=== PATIENT | female | born 1940 | race Caucasian/White ===

== ENCOUNTER 2018-01-11 07:25 | Observation (INO) | payer MEDICARE, BC ==
[2018-01-11] MEDS ORDERED: Aspirin 81 MG Tab.Chew CHEW ONE (07:29)
[2018-01-11] MEDS ORDERED: Ticagrelor 90 MG Tab PO ONE (07:29)
[2018-01-11] MEDS ORDERED: Sodium Chloride 0.9% 10 ML Syringe FLUSH PRN ×2 (07:29→09:10)
[2018-01-11] MEDS ORDERED: Famotidine 20 MG/2 ML SDV IVPUSH ONE (07:29)
--- NOTE | 2018-01-11 07:29 | EDM.PDOC ---
ED HPI GENERAL MEDICAL PROBLEM - General Chief Complaint: Chest Pain Stated Complaint: Chest Pain Time Seen by Provider: 01/11/18 07:25 Source of Information: Reports: Patient, Old Records ([facility] chart/EMR) History Limitations: Reports: No Limitations - History of Present Illness INITIAL COMMENTS - FREE TEXT/NARRATIVE: The patient was brought to the emergency room via private automobile by her daughter for evaluation of sudden onset of 7/10 sharp left upper chest pain associated with some nausea and dizziness. She has been having some problems with her vertigo recently and did take her medications this morning including a baby aspirin and her meclizine. The patient denies any other chest pain/pressure , heart flutter,orthostasis, orthopnea, diaphoresis, paresthesias, recent decreased exercise tolerance, or any other anginal-type symptoms. She did have a minor fall at home after she tripped about one week ago but did not injure her chest region or experience any other significant injuries at that time. No recent history of abdominal pain, heartburn, emesis, diarrhea, melena, gross hematochezia, or any food intolerance, including fatty foods, etc. with normal bowel movement earlier this morning. No recent history of colic, gross hematuria , or other UTI symptoms. The patient also denies any recent fever, cough, wheezing, dyspnea, etc.. No history of recent headaches, visual changes, diplopia, change in mental status, or other change in neurological status. Onset: Today, Sudden Onset Date: 01/11/18 Onset Time: 05:30 Duration: Constant Location: Reports: Chest. Denies: Head, Face, Neck, Abdomen, Back, Pelvis, Upper Extremity, Left, Upper Extremity, Right, Radiates to Quality: Reports: Same as Previous Episode, Sharp Improves with: Reports: Rest Worsens with: Reports: Movement (Palpation) Context: Reports: Other (As above) Associated Symptoms: Reports: Chest Pain, Nausea/Vomiting (No emesis). Denies: Confusion, Cough, Diaphoresis, Fever/Chills, Headaches, Loss of Appetite, Malaise, Seizure, Shortness of Breath, Syncope, Weakness Treatments LENS POLISHER: Reports: Other Medication(s) (Morning medications) Left Chest Pain Score (Numeric/FACES): 7 - Related Data Allergies Allergy/AdvReac Type Severity Reaction Status Date / Time No Known Allergies Allergy Verified 05/14/16 05:37 Home Meds: Home Meds Lisinopril [Prinivil] 30 mg PO DAILY 10/17/15 [History] Metoprolol Succinate [Toprol XL 50mg] 50 mg PO BID 10/17/15 [History] atorvaSTATin [Lipitor] 40 mg PO BEDTIME 10/17/15 [History] Aspirin [Ecotrin] 81 mg PO DAILY 05/14/16 [History] Ferrous Sulfate 325 mg PO DAILY #30 tablet 05/14/16 [Rx] Meclizine [Antivert] 25 mg PO Q6H PRN #30 tablet 05/14/16 [Rx] Past Medical History HEENT History: Reports: Impaired Vision, Other (See Below). Denies: Allergic Rhinitis, Cataract, Glaucoma, Hard of Hearing, Macular Degeneration, Retinal Detachment Other HEENT History: Glasses Cardiovascular History: Reports: Arrhythmia, High Cholesterol, Hypertension, Other (See Below). Denies: Afib, Aneurysm, Blood Clots/VTE/DVT, CAD, Heart Failure, Heart Murmur, CA, PVD, Syncope Other Cardiovascular History: Complete right bundle branch block, dyslipidemia Respiratory History: Reports: COPD, Other (See Below). Denies: Asthma, Bronchitis, Recurrent, Intubation, Previous, PE, Pneumothorax, Sleep Apnea, TB Other Respiratory History: COPD by chest x-ray Gastrointestinal History: Reports: None. Denies: Celiac Disease, Cholelithiasis , Chronic Constipation, Chronic Diarrhea, Gastritis, GERD, GI Bleed, Hepatitis, Inflammatory Bowel Disease, Irritable Bowel Syndrome, Jaundice, Pancreatitis, PUD Genitourinary History: Reports: None. 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 Denies: Back Pain, Chronic, Gout, Neck Pain, Chronic, RA, SLE Other Musculoskeletal History: Right ankle bimalleolar fracture on 07/02/10, Anne's cyst of the right knee, right wrist fracture in about 2005 Neurological History: Reports: Vertigo, Other (See Below). Denies: Cerebral Aneurysms, Concussion, CVA, Headaches, Chronic, Head Trauma, Migraines, Neuropathy, Peripheral, Parkinson's, Seizure, TIA Other Neuro History: Chronic vertigo Psychiatric History: Reports: Anxiety, Depression. Denies: Abuse, Victim of, ADD, ADHD, Addiction, Psych Hospitalization(s), PTSD, Suicide Attempt, Suicidal Ideation Endocrine/Metabolic History: Reports: Osteopenia, Osteoporosis, Other (See Below ). Denies: Diabetes, Type I, Diabetes, Type II, Hypothyroidism, IDDM Other Endocrine/Metabolic History: Hyperglycemia Hematologic History: Reports: Anemia, Iron Deficiency. Denies: Blood Transfusion(s) Immunologic History: Reports: None. Denies: AIDS, HIV, SLE Oncologic (Cancer) History: Reports: None. Denies: Basal Cell Carcinoma, Cervix , Hodgkin's Lymphoma, Leukemia, Lymphoma, Malignant Melanoma, Non-Hodgkin's Lymphoma, Squamous Cell Carcinoma, Uterine Dermatologic History: Reports: None. Denies: Eczema, Psoriasis - Infectious Disease History Infectious Disease History: Reports: Chicken Pox, Measles, Mumps. Denies: C- Difficile, Meningitis, Mononucleosis, MRSA, Pertussis (Whooping Cough), Rheumatic Fever, Rubella, Scarlet Fever, TB, VRE - Past Surgical History Head Surgeries/Procedures: Reports: None HEENT Surgical History: Reports: Adenoidectomy, Oral Surgery, Tonsillectomy, Other (See Below). Denies: Cataract Surgery, Eye Surgery, Laser Surgery, LASIK , Myringotomy w Tube(s), Naso-Sinus Surgery Other HEENT Surgeries/Procedures: Tonsillectomy and adenoidectomy at age 18. Multiple teeth extractions. Orange teeth extraction 4 in her late 30s Cardiovascular Surgical History: Reports: None. Denies: Varicose Respiratory Surgical History: Reports: None. Denies: Thoracentesis GI Surgical History: Reports: None. Denies: Appendectomy, Cholecystectomy, Colonoscopy, EGD, Hernia, Abdominal, Hernia, Inguinal, Hernia Repair/Other Female Surgical History: Reports: D&C, Other (See Below). Denies: Breast Biopsy, Hysterectomy, Oophorectomy, Salpingo-Oophorectomy, Tubal Ligation Other Female Surgeries/Procedures: D&C secondary to SAB Endocrine Surgical History: Reports: None. Denies: Thyroid Biopsy Neurological Surgical History: Reports: None. Denies: C-Spine, Discectomy, Laminectomy, Lumbar Spine, Sacral Spine, Spinal Fusion, Thoracic Spine, Vertebroplasty Musculoskeletal Surgical History: Reports: Joint Replacement, Knee Replacement, Other (See Below). Denies: Carpal Tunnel, Ganglion Cyst, ORIF, Shoulder Surgery Other Musculoskeletal Surgeries/Procedures:: Right TKA on 10/09/15 Oncologic Surgical History: Reports: None Dermatological Surgical History: Reports: None - Past Imaging History Past Imaging History: Reports: CAT Scan (CT of the brain on 05/14/16 with previous evaluation on 01/14/03), DEXA Scan (04/23/13), Mammogram (Last mammogram on 12/20/16), Stress Testing (Cardiolite stress test on 10/21/05 with ejection fraction of 72%), Venous Doppler (Right leg on 10/18/15 and 08/31/07) Social & Family History - Family History HEENT: Reports: None. Denies: Allergic Rhinitis, Cataract, Glaucoma, Macular Degeneration Cardiac: Reports: CAD, Cardiomyopathy, Heart Failure, Hypertension, CA, Other ( See Below). Denies: Afib, AICD, Aneurysm, Arrhythmia, Blood Clots/VTE/DVT, Bypass, Heart Murmur, High Cholesterol, Pacemaker, PVD/COD, Syncope Other Cardiac Family History: Father with CA in his 60s with fatal CHF in his 80s, mother with hypertension Respiratory: Reports: None. Denies: Asthma, COPD, PE, Pneumothorax, Sleep Apnea GI: Reports: Cholelithiasis, Colon Polyps, Other (See Below). Denies: Celiac Disease, GERD, GI bleed, Inflammatory Bowel Disease, Irritable Bowel Syndrome, PUD Other GI Family History: Mother with cholelithiasis. Sister with colon cancer as below. : Reports: None. Denies: Dialysis, Renal Calculus, Renal Disease/ Insufficiency OBGYN: Reports: None. Denies: Endometriosis, Fibroids, Recurrent Spontaneous Musculoskeletal: Reports: None. Denies: Arthritis, Gout, RA, SLE Neurological: Reports: CVA, Other (See Below). Denies: Cerebral Aneurysms, Dementia, Migraines, MS, Neuropathy, Peripheral, Parkinson's, Seizure, TIA Other Neurological Family History: Mother with CVA in her 60s Psychiatric: Reports: None. Denies: Abuse, Victim of, ADD, ADHD, Anxiety, Depression, Psych Hospitalization(s), PTSD, Suicide Attempt Endocrine/Metabolic: Reports: None. Denies: Diabetes, Type I, Diabetes, type II , Diabetes Mellitus, Type 3c, Hypothyroidism, IDDM Hematologic: Reports: None. Denies: Anemia, Transfusion Reaction Immunologic: Reports: None. Denies: AIDS, HIV, SLE Dermatologic: Reports: None. Denies: Eczema, Psoriasis Oncologic: Reports: Colon, Other (See Below). Denies: Breast, Cervix, Hodgkin' s Lymphoma, Leukemia, Lymphoma, Metastatic, Non-Hodgkin's Lymphoma, Ovarian, Skin, Uterine Other Oncologic Family History: Sister with colon cancer in her 70s - Tobacco Use Smoking Status *Q: Never Smoker Tobacco Use Within Last Twelve Months: No Used Tobacco, but Quit: No Smoking Cessation Information Provided To Patient: No Second Hand Smoke Exposure: No Second Hand Smoke Education Provided: No - Caffeine Use Caffeine Use: Reports: Coffee, Soda, Tea. Denies: Energy Drinks Caffeine Use Comment: 3 cups of coffee per day, one glass of tea per month, and 1 soda per day - Alcohol Use Alcohol Use History: No Days Per Week of Alcohol Use: 0 Number of Drinks Per Day: 0 Number of Drinks Per Day Comment: No previous DWIs, problems with alcohol abuse , etc. 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 ED EXAM, GENERAL - Physical Exam Exam: See Below Exam Limited By: No Limitations General Appearance: Alert, WD/WN, No Apparent Distress Eye Exam: Bilateral Eye: EOMI, Normal Fundi, Normal Inspection (No nystagmus. Patient wearing glasses), PERRL Ears: Normal External Exam, Normal Canal, Hearing Grossly Normal, Normal TMs Nose: Normal Inspection, Normal Mucosa, No Blood Throat/Mouth: Normal Inspection, Normal Lips, Normal Teeth (Multiple missing teeth), Normal Gums, Normal Oropharynx, Normal Voice, No Airway Compromise. No : Dysphagia, Perioral Cyanosis Head: Atraumatic, Normocephalic. No: Facial Swelling, Facial Tenderness, Sinus Tenderness Neck: Non-Tender, Full Range of Motion, Carotid Bruit (Mild bilateral carotid bruits). No: Lymphadenopathy (L), Lymphadenopathy (R), Thyromegaly Respiratory/Chest: No Respiratory Distress, Lungs Clear, Normal Breath Sounds, No Accessory Muscle Use. No: Chest Non-Tender (Moderate localized palpation pain over her left anterior superior chest wall region with no crepitation, ecchymosis, deformity, swelling, etc.), Stridor, Retractions Cardiovascular: Normal Peripheral Pulses, Regular Rate, Rhythm, No Edema, No Gallop, No JVD, No Murmur, No Rub. No: Gallop/S3, Gallop/S4, Friction Rub Peripheral Pulses: 2+: Radial (L), Radial (R), Dorsalis Pedis (L), Dorsalis Pedis (R) GI/Abdominal: Normal Bowel Sounds, Soft, Non-Tender, No Organomegaly, No Distention, No Abnormal Bruit, No Mass, Pelvis Stable, Other (Obese). No: Guarding (Female) Exam: Deferred Rectal (Female) Exam: Deferred Back Exam: Normal Inspection, Full Range of Motion. No: CVA Tenderness (L), CVA Tenderness (R), Muscle Spasm Extremities: Normal Inspection, Normal Range of Motion, Non-Tender, No Pedal Edema, Normal Capillary Refill. No: Cyndee's Sign Neurological: Alert, Oriented, CN II-XII Intact, Normal Cognition, Normal Gait, No Motor/Sensory Deficits Psychiatric: Normal Affect, Normal Mood Skin Exam: Warm, Dry, Intact, Normal Color, No Rash. No: Diaphoretic, Ecchymosis, Petechiae, Wound/Incision Lymphatic: No Adenopathy EKG INTERPRETATION EKG Date: 01/11/18 Time: 07:33 Rhythm: NSR Rate (Beats/Min): 66 Caruthers: Normal (Left cardiac axis) P-Wave: Enlarged (Mild diffuse biphasic P waves with resolution of previous pulmonary hypertension by EKG) QRS: Normal (QRS interval of 0.09 seconds representing repolarization changes) ST-T: Normal (T-wave inversion in lead V1 with new T-wave inversion in lead 3) QT: Normal IL/PQ Interval: 0.13 seconds with no delta waves present Comparison: Change From Previous EKG (As above since 05/14/16) EKG Interpretation Comments: 1. No acute ischemic changes 2. Left atrial enlargement 3. Repolarization changes 4. Short IL interval Course - Vital Signs Last Recorded V/S: Last Vital Signs Temp 36.9 C 01/11/18 07:25 Pulse 70 01/11/18 08:45 Resp 18 01/11/18 08:45 BP 162/71 H 01/11/18 08:45 Pulse Ox 97 01/11/18 08:45 Vital Signs - 24 hr 01/11/18 01/11/18 01/11/18 07:25 07:40 07:41 Temperature [ 36.9 C Temporal] Pulse, Peripheral Pulse, 69 77 Peripheral [ Pulse Oximetry] Respiratory 19 20 Rate Blood Pressure 172/87 H Blood Pressure 172/87 H 136/68 [Left Upper Arm ] O2 Sat by Pulse 96 96 Oximetry 01/11/18 01/11/18 01/11/18 07:44 07:55 08:10 Temperature [ Temporal] Pulse, 71 Peripheral Pulse, 66 68 Peripheral [ Pulse Oximetry] Respiratory 20 16 Rate Blood Pressure 172/87 H Blood Pressure 144/68 H 149/67 H [Left Upper Arm ] O2 Sat by Pulse 95 97 Oximetry 01/11/18 01/11/18 08:25 08:45 Temperature [ Temporal] Pulse, Peripheral Pulse, 66 70 Peripheral [ Pulse Oximetry] Respiratory 15 18 Rate Blood Pressure Blood Pressure 165/75 H 162/71 H [Left Upper Arm ] O2 Sat by Pulse 98 97 Oximetry - Orders/Labs/Meds Orders: Active Orders 24 hr Category Date Time Status Cardiac Monitoring [RC] . DIRECTED Care 01/11/18 07:29 Active EKG Documentation Completion [RC] ASDIRECTED Care 01/11/18 07:29 Active Oxygen Therapy, ED [RC] CONTINUOUS Care 01/11/18 07:29 Active Peripheral IV Care [RC] . DIRECTED Care 01/11/18 07:29 Active Pulse Oximetry [RC] CONTINUOUS Care 01/11/18 07:29 Active Up With Assistance [RC] PFP Care 01/11/18 07:29 Active Vital Signs [RC] PFP Care 01/11/18 07:29 Active Nothing per Oral Now Diet [DIET] Diet 01/11/18 Breakfast Active Chest 1V Frontal [CR] Stat Exams 01/11/18 07:29 Taken Nitroglycerin [Nitrostat] Med 01/11/18 07:31 Stat 0.4 mg SL ONETIME STA Sodium Chloride 0.9% [Saline Flush] Med 01/11/18 07:29 Active 10 ml FLUSH ASDIRECTED PRN Obtain Past Medical Record [OM.PC] Urgent Oth 01/11/18 07:29 Active Peripheral IV Insertion Adult [OM.PC] Stat Oth 01/11/18 07:29 Ordered Resuscitation Status Stat Resus Stat 01/11/18 07:29 Ordered Medication Orders Nitroglycerin (Nitrostat) 0.4 mg SL ONETIME STA Stop: 01/12/18 07:32 Last Admin: 01/11/18 07:41 Dose: 0.4 mg Sodium Chloride (Saline Flush) 10 ml FLUSH ASDIRECTED PRN PRN Reason: Keep Vein Open Labs: Laboratory Tests 01/11/18 01/11/18 01/11/18 Range/Units 07:35 07:35 07:35 WBC 6.3 (4.0-10.2) K/uL RBC 4.99 (3.77-5.09) M/uL Hgb 14.7 (11.7-15.5) g/dL Hct 44.5 (34.0-46.0) % MCV 89.2 (84.0-98.0) fL MCH 29.5 (28.2-33.3) pg MCHC 33.0 (31.7-36.0) g/dL RDW 13.2 (11.2-14.1) % Plt Count 177 (150-350) K/uL Neut % (Auto) 65.6 (45.0-80.0) % Lymph % (Auto) 21.3 (10.0-50.0) % Grady % (Auto) 9.1 (2.0-14.0) % Eos % (Auto) 3.0 (0.0-5.0) % Baso % (Auto) 1.0 (0.0-2.0) % Neut # (Auto) 4.10 (1.40-7.00) K/uL Lymph # (Auto) 1.33 (0.50-3.50) K/uL Grady # (Auto) 0.57 (0.00-1.00) K/uL Eos # (Auto) 0.19 (0.00-0.50) K/uL Baso # (Auto) 0.06 (0.00-0.20) K/uL PT 10.7 (9.8-11.7) SEC INR 1.0 APTT 25.9 (22.1-29.8) SEC D-Dimer, Quantitative 242 (0-400) ng/mL Sodium (136-145) mmol/L Potassium (3.5-5.1) mmol/L Chloride (98-107) mmol/L Carbon Dioxide (21.0-32.0) mmol/L BUN (7-18) mg/dL Creatinine (0.51-1.17) mg/dL Est Cr Clr Drug Dosing mL/min Estimated GFR (MDRD) mL/min Glucose (74-106) mg/dL Lactic Acid (0.4-2.0) mmol/L Uric Acid (2.6-7.2) mg/dL Calcium (8.5-10.1) mg/dL Magnesium (1.8-2.4) mg/dL Total Bilirubin (0.2-1.0) mg/dL AST (15-37) U/L ALT (12-78) U/L Alkaline Phosphatase (46-116) IU/L Creatine Kinase (26-308) U/L Creatine Kinase Index (0.0-2.5) % CK-MB (CK-2) (0.00-3.60) ng/mL Troponin I (0.000-0.056) ng/mL NT-Pro-B Natriuret Pep (0-125) pg/mL Total Protein (6.4-8.2) g/dL Albumin (3.4-5.0) g/dL TSH, Ultra Sensitive (0.358-3.740) mIU/mL 01/11/18 01/11/18 Range/Units 07:35 07:35 WBC (4.0-10.2) K/uL RBC (3.77-5.09) M/uL Hgb (11.7-15.5) g/dL Hct (34.0-46.0) % MCV (84.0-98.0) fL MCH (28.2-33.3) pg MCHC (31.7-36.0) g/dL RDW (11.2-14.1) % Plt Count (150-350) K/uL Neut % (Auto) (45.0-80.0) % Lymph % (Auto) (10.0-50.0) % Grady % (Auto) (2.0-14.0) % Eos % (Auto) (0.0-5.0) % Baso % (Auto) (0.0-2.0) % Neut # (Auto) (1.40-7.00) K/uL Lymph # (Auto) (0.50-3.50) K/uL Grady # (Auto) (0.00-1.00) K/uL Eos # (Auto) (0.00-0.50) K/uL Baso # (Auto) (0.00-0.20) K/uL PT (9.8-11.7) SEC INR APTT (22.1-29.8) SEC D-Dimer, Quantitative (0-400) ng/mL Sodium 142 (136-145) mmol/L Potassium 4.0 (3.5-5.1) mmol/L Chloride 107 (98-107) mmol/L Carbon Dioxide 27.3 (21.0-32.0) mmol/L BUN 15 (7-18) mg/dL Creatinine 0.76 (0.51-1.17) mg/dL Est Cr Clr Drug Dosing 52.91 mL/min Estimated GFR (MDRD) > 60 mL/min Glucose 95 (74-106) mg/dL Lactic Acid 1.4 (0.4-2.0) mmol/L Uric Acid 5.3 (2.6-7.2) mg/dL Calcium 9.5 (8.5-10.1) mg/dL Magnesium 2.0 (1.8-2.4) mg/dL Total Bilirubin 0.5 (0.2-1.0) mg/dL AST 20 (15-37) U/L ALT 30 (12-78) U/L Alkaline Phosphatase 81 (46-116) IU/L Creatine Kinase 38 (26-308) U/L Creatine Kinase Index 2.1 (0.0-2.5) % CK-MB (CK-2) 0.80 (0.00-3.60) ng/mL Troponin I 0.000 (0.000-0.056) ng/mL NT-Pro-B Natriuret Pep 233 H (0-125) pg/mL Total Protein 7.5 (6.4-8.2) g/dL Albumin 3.7 (3.4-5.0) g/dL TSH, Ultra Sensitive 2.989 (0.358-3.740) mIU/mL Meds: Medications Generic Name Dose Route Start Last Admin Trade Name Freq PRN Reason Stop Dose Admin Nitroglycerin 0.4 mg 01/11/18 07:31 01/11/18 07:41 Nitrostat SL 01/12/18 07:32 0.4 mg ONETIME STA Administration Sodium Chloride 10 ml 01/11/18 07:29 Saline Flush FLUSH ASDIRECTED PRN Keep Vein Open Discontinued Medications Generic Name Dose Route Start Last Admin Trade Name Freq PRN Reason Stop Dose Admin Aspirin 324 mg 01/11/18 07:29 01/11/18 07:40 Aspirin CHEW 01/11/18 07:30 324 mg ONETIME ONE Administration Famotidine 40 mg 01/11/18 07:29 01/11/18 07:42 Pepcid IVPUSH 01/11/18 07:30 40 mg ONETIME ONE Administration Metoprolol Tartrate 2.5 mg 01/11/18 07:31 01/11/18 07:44 Lopressor IVPUSH 01/11/18 07:32 2.5 mg ONETIME ONE Administration Ticagrelor 180 mg 01/11/18 07:29 01/11/18 07:41 Brilinta PO 01/11/18 07:30 180 mg ONETIME ONE Administration - Radiology Interpretation Free Text/Narrative:: ekg monitor tech showed normal sinus rhythm with heart rate in the 60s to 70s with no ectopy or arrhythmia Chest x-ray, portable, shows mild cardiomegaly with moderate COPD changes and probable pulmonary hypertension and/or mild centralized CHF. Mild aortic valve calcification. No pneumothorax, pulmonary infiltrates, rib fractures, etc. Departure - Departure Time of Disposition: 09:00 Disposition: Refer to Observation Condition: Good Clinical Impression: COPD (chronic obstructive pulmonary disease), Hypertension, Osteoarthritis, Dyslipidemia, Hyperglycemia, Iron deficiency, Vertigo, CHF (congestive heart failure), Chest pain Referrals: Jose Wan MD [Primary Care Provider] - Forms: ED Department Discharge Care Plan Goals: See plan - Problem List & Annotations (1) Chest pain SNOMED Code(s): 45409450 Code(s): R07.9 - CHEST PAIN, UNSPECIFIED Status: Acute Priority: High Current Visit: Yes Onset Date: 01/11/18 Annotation/Comment:: Atypical presentation of chest pain with appearance of chest wall pain by palpation and physical exam. Secondary to atypical symptoms chest pain protocol was initiated. Various therapeutic options were given to the patient and her daughter, who are requesting admission for rule out of CA. Consider repeat Cardiolite stress test on an outpatient basis. Cardiology consultation depending on her clinical course. Note the patient has not had a colonoscopy to this point despite family history of colon cancer in her sister as above. Colonoscopy LIZETH after her cardiac status has been determined. Qualifiers: Chest pain type: other chest pain Qualified Code(s): R07.89 - Other chest pain; R07.8 - Other chest pain (2) CHF (congestive heart failure) SNOMED Code(s): 19265105 Code(s): I50.9 - HEART FAILURE, UNSPECIFIED Status: Acute Priority: High Current Visit: Yes Onset Date: 01/11/18 Annotation/Comment:: Borderline CHF by chest x-ray with mildly elevated BNP possibly secondary to her age and renal function. No need for Lasix therapy at this time. Echocardiogram should be conducted on an outpatient basis. Qualifiers: Heart failure type: unspecified Heart failure chronicity: acute Qualified Code(s): I50.9 - Heart failure, unspecified (3) Hyperglycemia SNOMED Code(s): 21684318 Code(s): R73.9 - HYPERGLYCEMIA, UNSPECIFIED Status: Chronic Priority: Medium Current Visit: Yes Onset Date: 05/14/16 Annotation/Comment:: Milldy elevated fasting glucose in the past. Gycosylated hemoglobin in the a.m. (4) Iron deficiency SNOMED Code(s): 43220916 Code(s): E61.1 - IRON DEFICIENCY Status: Chronic Priority: Medium Current Visit: Yes Onset Date: 05/14/16 Annotation/Comment:: As above. Currently under therapy. No current anemia. (5) Vertigo SNOMED Code(s): 017513199 Code(s): R42 - DIZZINESS AND GIDDINESS Status: Chronic Priority: Medium Current Visit: Yes Annotation/Comment:: Note chronic vertigo with recent mild exacerbation (6) COPD (chronic obstructive pulmonary disease) SNOMED Code(s): 43998617 Code(s): J44.9 - CHRONIC OBSTRUCTIVE PULMONARY DISEASE, UNSPECIFIED Status : Chronic Priority: Medium Current Visit: Yes Onset Date: 05/14/16 Annotation/Comment:: COPD by chest x-ray. Consider PFTs by regular provider after her cardiac status has been determined.. No recent fever or bronchitic- type symptoms. Qualifiers: COPD type: emphysema Emphysema type: panlobular Qualified Code(s): J43.1 - Panlobular emphysema (7) Dyslipidemia SNOMED Code(s): 794126669 Code(s): E78.5 - HYPERLIPIDEMIA, UNSPECIFIED Status: Chronic Priority: Medium Current Visit: Yes Annotation/Comment:: Currently under therapy. Lipid panel in the a.m. (8) Hypertension SNOMED Code(s): 22710021 Code(s): I10 - ESSENTIAL (PRIMARY) HYPERTENSION Status: Chronic Priority : Medium Current Visit: Yes Annotation/Comment:: Blood pressure somewhat elevated initially in the emergency room, however improved with treatment. Continue to observe closely during this hospitalization and by regular provider Qualifiers: Hypertension type: essential hypertension Qualified Code(s): I10 - Essential (primary) hypertension (9) Osteoarthritis SNOMED Code(s): 898726944 Code(s): M19.90 - UNSPECIFIED OSTEOARTHRITIS, UNSPECIFIED SITE Status: Chronic Priority: Medium Current Visit: Yes Annotation/Comment:: Stable by history Qualifiers: Osteoarthritis location: multiple joints Osteoarthritis type: primary Qualified Code(s): M15.0 - Primary generalized (osteo)arthritis - Problem List Review Problem List Initiated/Reviewed/Updated: Yes - My Orders Last 24 Hours: My Active Orders 01/11/18 07:29 Cardiac Monitoring [RC] . DIRECTED EKG Documentation Completion [RC] ASDIRECTED Oxygen Therapy, ED [RC] CONTINUOUS Peripheral IV Care [RC] . DIRECTED Pulse Oximetry [RC] CONTINUOUS Up With Assistance [RC] PFP Vital Signs [RC] PFP Chest 1V Frontal [CR] Stat Sodium Chloride 0.9% [Saline Flush] 10 ml FLUSH ASDIRECTED PRN Obtain Past Medical Record [OM.PC] Urgent Peripheral IV Insertion Adult [OM.PC] Stat Resuscitation Status Stat 01/11/18 07:31 Nitroglycerin [Nitrostat] 0.4 mg SL ONETIME STA 01/11/18 Breakfast Nothing per Oral Now Diet [DIET] - Assessment/Plan Admission H&P: Please use this note as an admission H&P Last 24 Hours: My Active Orders 01/11/18 07:29 Cardiac Monitoring [RC] . DIRECTED EKG Documentation Completion [RC] ASDIRECTED Oxygen Therapy, ED [RC] CONTINUOUS Peripheral IV Care [RC] . DIRECTED Pulse Oximetry [RC] CONTINUOUS Up With Assistance [RC] PFP Vital Signs [RC] PFP Chest 1V Frontal [CR] Stat Sodium Chloride 0.9% [Saline Flush] 10 ml FLUSH ASDIRECTED PRN Obtain Past Medical Record [OM.PC] Urgent Peripheral IV Insertion Adult [OM.PC] Stat Resuscitation Status Stat 01/11/18 07:31 Nitroglycerin [Nitrostat] 0.4 mg SL ONETIME STA 01/11/18 Breakfast Nothing per Oral Now Diet [DIET] Assessment:: As above Plan: As above. Extensive precautions were given to the patient and her daughter, who are in agreement with the treatment plan. The patient's condition is stable enough for observation status and general supervision.
[2018-01-11] MEDS ORDERED: Nitroglycerin 0.4 MG Tab.SL SL STA (07:31)
[2018-01-11] MEDS ORDERED: Metoprolol Tartrate 5 MG/5 ML SDV IVPUSH ONE (07:31)
[2018-01-11 08:29] LABS: CHLORIDE,CL 107 mmol/L (98-107); SODIUM,NA 142 mmol/L (136-145)
[2018-01-11] MEDS ORDERED: Meclizine 25 MG Tab PO PRN (09:00)
[2018-01-11] MEDS ORDERED: Acetaminophen 325 MG Tab PO PRN (09:00)
[2018-01-11] MEDS ORDERED: Temazepam 15 MG Cap PO PRN (09:10)
[2018-01-11] MEDS: Metoprolol Succinate 50 MG Tab.ER PO SCH (17:25)
[2018-01-11] MEDS ORDERED: atorvaSTATin 40 MG Tab PO SCH (20:00)
[2018-01-12] MEDS: Metoprolol Succinate 50 MG Tab.ER PO SCH (07:19)
[2018-01-12 07:20] VITALS: BP 127/63
[2018-01-12] MEDS ORDERED: Lisinopril 20 MG Tab PO SCH (08:00)
[2018-01-12] MEDS ORDERED: Ferrous Sulfate 325 MG Tab PO SCH (08:00)
[2018-01-12] MEDS ORDERED: Aspirin 81 MG Tab.EC PO SCH (08:00)
[2018-01-12 09:20] LABS: CHLORIDE,CL 108 mmol/L (98-107); SODIUM,NA 142 mmol/L (136-145)
--- NOTE | 2018-01-12 10:21 | PCM.DCSUM1 ---
Discharge Summary - Hospital Course HPI Initial Comments: See emergency room note/admission H&P Brief History: See emergency room note/admission H&P - Discharge Data Discharge Date: 01/12/18 Discharge Disposition: Home, Self-Care 01 Condition: Good - Discharge Diagnosis/Problem(s) (1) Chest pain SNOMED Code(s): 25974004 ICD Code: R07.9 - CHEST PAIN, UNSPECIFIED Status: Acute Priority: High Current Visit: Yes Onset Date: 01/11/18 Problem Details: Negative workup for acute [place] with no true chest pain or anginal type symptoms. Previous chest wall pain resolved at time of discharge. Atypical presentation of chest pain in the emergency room with appearance of chest wall pain by palpation and physical exam. Secondary to atypical symptoms chest pain protocol was initiated. Various therapeutic options were given to the patient and her daughter, who are requesting admission for rule out of [place]. The patient wishes to consider repeat Cardiolite stress test on an outpatient basis for now and will discuss this further with her regular provider at follow-up. Echocardiogram will be conducted on an outpatient basis secondary to her borderline CHF, however. Cardiology consultation depending on her clinical course. Note the patient has not had a colonoscopy to this point despite family history of colon cancer in her sister as per emergency room note. Colonoscopy LIZETH after her cardiac status has been determined. Qualifiers: Chest pain type: other chest pain Qualified Code(s): R07.89 - Other chest pain; R07.8 - Other chest pain (2) CHF (congestive heart failure) SNOMED Code(s): 76668559 ICD Code: I50.9 - HEART FAILURE, UNSPECIFIED Status: Acute Priority: High Current Visit: Yes Onset Date: 01/11/18 Problem Details: As above. Borderline CHF by chest x-ray with mildly progressive elevated BNP possibly secondary to her age and renal function. No need for additional diuretic therapy at this time. Echocardiogram will be conducted LIZETH on an outpatient basis as above. Activity restrictions, etc. discussed. The patient is already on an JUANCHO inhibitor. Qualifiers: Heart failure type: unspecified Heart failure chronicity: acute Qualified Code(s): I50.9 - Heart failure, unspecified (3) Hyperglycemia SNOMED Code(s): 87908066 ICD Code: R73.9 - HYPERGLYCEMIA, UNSPECIFIED Status: Chronic Priority: Medium Current Visit: Yes Onset Date: 05/14/16 Problem Details: Milldy elevated fasting glucose in the past. Gycosylated hemoglobin once again normal this a.m. (4) Iron deficiency SNOMED Code(s): 77057584 ICD Code: E61.1 - IRON DEFICIENCY Status: Chronic Priority: Medium Current Visit: Yes Onset Date: 05/14/16 Problem Details: As above. Currently under therapy. No current anemia. Continue iron supplementation. (5) Vertigo SNOMED Code(s): 923701123 ICD Code: R42 - DIZZINESS AND GIDDINESS Status: Chronic Priority: Medium Current Visit: Yes Problem Details: Note chronic vertigo with recent mild exacerbation with no significant vertigo this morning. (6) COPD (chronic obstructive pulmonary disease) SNOMED Code(s): 17496551 ICD Code: J44.9 - CHRONIC OBSTRUCTIVE PULMONARY DISEASE, UNSPECIFIED Status : Chronic Priority: Medium Current Visit: Yes Onset Date: 05/14/16 Problem Details: COPD by chest x-ray. Consider PFTs by regular provider after her cardiac status has been determined.. No recent fever or bronchitic-type symptoms. Qualifiers: COPD type: emphysema Emphysema type: panlobular Qualified Code(s): J43.1 - Panlobular emphysema (7) Dyslipidemia SNOMED Code(s): 686775423 ICD Code: E78.5 - HYPERLIPIDEMIA, UNSPECIFIED Status: Chronic Priority: Medium Current Visit: Yes Problem Details: Currently under therapy. Lipid panel excellent this a.m. (8) Hypertension SNOMED Code(s): 69199149 ICD Code: I10 - ESSENTIAL (PRIMARY) HYPERTENSION Status: Chronic Priority : Medium Current Visit: Yes Problem Details: Blood pressure somewhat elevated initially in the emergency room, however improved with treatment with excellent blood pressures throughout this hospitalization.. Continue to observe closely by regular provider Qualifiers: Hypertension type: essential hypertension Qualified Code(s): I10 - Essential (primary) hypertension (9) Osteoarthritis SNOMED Code(s): 193560146 ICD Code: M19.90 - UNSPECIFIED OSTEOARTHRITIS, UNSPECIFIED SITE Status: Chronic Priority: Medium Current Visit: Yes Problem Details: Stable by history Qualifiers: Osteoarthritis location: multiple joints Osteoarthritis type: primary Qualified Code(s): M15.0 - Primary generalized (osteo)arthritis (10) Hypoalbuminemia SNOMED Code(s): 469183346 ICD Code: E88.09 - OTH DISORDERS OF PLASMA-PROTEIN METABOLISM, NEC Status: Acute Priority: Medium Current Visit: Yes Onset Date: ~01/12/18 Problem Details: High Protein Glucerna supplements twice a day as snacks - Patient Summary/Data Operative Procedure(s) Performed: None Complications: None Consults: None Labs Pending at D/C: None Recommended Follow-up Testing/Procedures: As per discharge instructions Planned Operative Procedure(s) after DC: As per discharge instructions Hospital Course: The patient was admitted to observation status on telemetry for rule out [place] with no chest pain or anginal type symptoms either prior to admission or during this hospitalization. Previous suspected chest wall pain resolved prior to discharge as above. No complications during this hospitalization. Further workup as above and per discharge instructions - Patient Instructions Diet: Fluid Restriction Diet, Other: Heart healthy, diverticulosis, high protein Fluid Restriction: 2000 mL Activity: No Strenuous Activities (Maximum 50% exercise restriction until heart status has been clarified) Driving: May Drive Today Showering/Bathing: May Shower Notify Provider of: Fever, Increased Pain, Nausea and/or Vomiting Other/Special Instructions: 1. Follow-up with your regular provider in one week for reevaluation with recommended repeat CBC, basic metabolic panel, CK, CK -MB, troponin I, and BNP. 2. Discuss possible Cardiolite stress test as preoperative clearance for strongly recommended colonoscopy, which should be conducted LIZETH once your heart status has been clarified. 3. Echocardiogram to be conducted in this facility on 01/17 with hospital to call you concerning specifics. Discuss results with regular provider when available. 4. Immediately after this visit verify that your cellular telephone's voicemail has been activated and is empty. Also verify that your home telephone's answering machine is operating properly and has space to receive messages. Note that it is sometimes necessary for us to be able to contact you at a later date to discuss your medical care. 5. High protein Glucerna supplements twice a day as snacks - Discharge Plan Home Medications: Home Meds Lisinopril [Prinivil] 30 mg PO DAILY 10/17/15 [History] Metoprolol Succinate [Toprol XL 50mg] 50 mg PO BID 10/17/15 [History] atorvaSTATin [Lipitor] 40 mg PO BEDTIME 10/17/15 [History] Aspirin [Ecotrin] 81 mg PO DAILY 05/14/16 [History] Ferrous Sulfate 325 mg PO DAILY #30 tablet 05/14/16 [Rx] Meclizine [Antivert] 25 mg PO Q6H PRN #30 tablet 05/14/16 [Rx] Acetaminophen [Tylenol] 650 mg PO Q4H PRN tablet 01/12/18 [Rx] Patient Handouts: Ticagrelor oral tablet, Chest Wall Pain, [id number], Famotidine injection, Nitroglycerin sublingual tablets, Heart Failure, Easy-to- Read, Metoprolol injection, Chest Pain Observation Forms: ED Department Discharge Referrals: Jose Wan MD [ED Physician] - - Discharge Summary/Plan Comment DC Time >30 min.: Yes (Coordination of care ) Discharge Summary/Plan Comment: As above. Extensive precautions were given to the patient, who is in agreement with the treatment plan. See Patient Instructions for further treatment and plan. - General Info Date of Service: 01/12/18 Admission Dx/Problem (Free Text: Atypical chest pain Functional Status: Reports: Pain Controlled, Tolerating Diet, Ambulating, Urinating. Denies: New Symptoms, Incentive Spirometry Numeric/FACES Score: 0 - Review of Systems General: Reports: No Symptoms. Denies: Fever, Weakness, Fatigue, Malaise, Chills, Night Sweats, Appetite HEENT: Reports: No Symptoms. Denies: Ear Pain, Eye Pain, Headaches, Post Nasal Drip, Sinus Congestion, Sore Throat, Rhinitis, Visual Changes Pulmonary: Reports: No Symptoms. Denies: Shortness of Breath, Pleuritic Chest Pain, Cough, Hemoptysis, Wheezing Cardiovascular: Reports: No Symptoms, Edema (Stable dependent). Denies: Chest Pain, Palpitations, Dyspnea on Exertion, Orthopnea, PND, Lightheadedness Gastrointestinal: Reports: No Symptoms. Denies: Abdominal Pain, Constipation, Decreased Appetite, Diarrhea, Difficulty Swallowing, Hematochezia, Melena, Nausea, Vomiting Genitourinary: Reports: No Symptoms. Denies: Dysuria, Frequency, Urgency, Incontinence, Hematuria, Retention, Flank Pain Musculoskeletal: Denies: Neck Pain, Shoulder Pain, Arm Pain, Back Pain, Leg Pain Skin: Reports: No Symptoms. Denies: Pallor, Diaphoresis, Rash Neurological: Reports: No Symptoms. Denies: Confusion, Dizziness, Headache, Numbness, Paresthesia, Tingling, Weakness Psychiatric: Reports: No Symptoms. Denies: Confusion, Depression, Anxiety, Agitation, Suicidal Ideation - Patient Data Vitals - Most Recent: Last Vital Signs Temp 36.5 C 01/12/18 08:00 Pulse 65 01/12/18 08:00 Resp 17 01/12/18 08:00 BP 127/63 01/12/18 08:00 Pulse Ox 98 01/12/18 08:00 Vital Signs - 24 hr 01/11/18 01/11/18 01/11/18 12:00 16:00 17:25 Temperature [ 36.9 C 36.5 C Oral] Temperature [ Temporal] Pulse, 69 Peripheral Pulse, 65 69 Peripheral [ Pulse Oximetry] Respiratory 16 12 Rate Blood Pressure 148/78 H Blood Pressure 157/67 H 148/78 H [Left Upper Arm ] O2 Sat by Pulse 99 99 Oximetry 01/11/18 01/11/18 01/12/18 19:49 20:00 00:00 Temperature [ 36.7 C Oral] Temperature [ 35.9 C Temporal] Pulse, Peripheral Pulse, 61 71 Peripheral [ Pulse Oximetry] Respiratory 12 16 Rate Blood Pressure Blood Pressure 127/66 120/69 [Left Upper Arm ] O2 Sat by Pulse 98 98 98 Oximetry 01/12/18 01/12/18 01/12/18 04:00 07:19 08:00 Temperature [ 36.5 C Oral] Temperature [ 36.3 C Temporal] Pulse, 65 Peripheral Pulse, 70 65 Peripheral [ Pulse Oximetry] Respiratory 18 17 Rate Blood Pressure 127/63 Blood Pressure 115/69 127/63 [Left Upper Arm ] O2 Sat by Pulse 99 98 Oximetry Weight - Most Recent: 75.75 kg I&O - Last 24 hours: Intake & Output 01/11/18 01/12/18 01/12/18 22:59 06:59 14:59 Intake Total 420 Output Total 300 Balance 120 Imaging Impressions - Last 24 hrs: teletypesetter monitor prior to discharge shows normal sinus rhythm in the 80s with previous heart rate in the 60s to 70s with no ectopy or arrhythmia. Chest x-ray, portable, on 01/11/18 shows mild cardiomegaly with moderate COPD changes and probable pulmonary hypertension and/or mild centralized CHF. Mild aortic valve calcification. No pneumothorax, pulmonary infiltrates, rib fractures, etc. Lab Results - Last 24 hrs: Laboratory Results - last 24 hr 01/11/18 01/11/18 01/12/18 Range/Units 12:37 18:40 07:10 WBC 5.2 (4.0-10.2) K/uL RBC 4.85 (3.77-5.09) M/uL Hgb 14.3 (11.7-15.5) g/dL Hct 43.3 (34.0-46.0) % MCV 89.3 (84.0-98.0) fL MCH 29.5 (28.2-33.3) pg MCHC 33.0 (31.7-36.0) g/dL RDW 13.4 (11.2-14.1) % Plt Count 160 (150-350) K/uL Neut % (Auto) 58.6 (45.0-80.0) % Lymph % (Auto) 28.1 (10.0-50.0) % Crane % (Auto) 9.4 (2.0-14.0) % Eos % (Auto) 3.1 (0.0-5.0) % Baso % (Auto) 0.8 (0.0-2.0) % Neut # (Auto) 3.07 (1.40-7.00) K/uL Lymph # (Auto) 1.47 (0.50-3.50) K/uL Crane # (Auto) 0.49 (0.00-1.00) K/uL Eos # (Auto) 0.16 (0.00-0.50) K/uL Baso # (Auto) 0.04 (0.00-0.20) K/uL Sodium (136-145) mmol/L Potassium (3.5-5.1) mmol/L Chloride (98-107) mmol/L Carbon Dioxide (21.0-32.0) mmol/L BUN (7-18) mg/dL Creatinine (0.51-1.17) mg/dL Est Cr Clr Drug Dosing mL/min Estimated GFR (MDRD) mL/min Glucose (74-106) mg/dL Hemoglobin A1c (4.3-5.7) % Calcium (8.5-10.1) mg/dL Total Bilirubin (0.2-1.0) mg/dL AST (15-37) U/L ALT (12-78) U/L Alkaline Phosphatase (46-116) IU/L Creatine Kinase 30 32 (26-308) U/L Creatine Kinase Index 2.3 2.2 (0.0-2.5) % CK-MB (CK-2) 0.70 0.70 (0.00-3.60) ng/mL Troponin I 0.000 0.000 (0.000-0.056) ng/mL NT-Pro-B Natriuret Pep (0-125) pg/mL Total Protein (6.4-8.2) g/dL Albumin (3.4-5.0) g/dL Triglycerides (30-150) mg/dL Cholesterol (100-200) mg/dL LDL Cholesterol, Calc (0-100) mg/dL HDL Cholesterol (40-60) mg/dL 01/12/18 01/12/18 Range/Units 07:10 07:10 WBC (4.0-10.2) K/uL RBC (3.77-5.09) M/uL Hgb (11.7-15.5) g/dL Hct (34.0-46.0) % MCV (84.0-98.0) fL MCH (28.2-33.3) pg MCHC (31.7-36.0) g/dL RDW (11.2-14.1) % Plt Count (150-350) K/uL Neut % (Auto) (45.0-80.0) % Lymph % (Auto) (10.0-50.0) % [place]ane % (Auto) (2.0-14.0) % Eos % (Auto) (0.0-5.0) % Baso % (Auto) (0.0-2.0) % Neut # (Auto) (1.40-7.00) K/uL Lymph # (Auto) (0.50-3.50) K/uL Crane # (Auto) (0.00-1.00) K/uL Eos # (Auto) (0.00-0.50) K/uL Baso # (Auto) (0.00-0.20) K/uL Sodium 142 (136-145) mmol/L Potassium 3.7 (3.5-5.1) mmol/L Chloride 108 H (98-107) mmol/L Carbon Dioxide 24.6 (21.0-32.0) mmol/L BUN 14 (7-18) mg/dL Creatinine 0.78 (0.51-1.17) mg/dL Est Cr Clr Drug Dosing 51.53 mL/min Estimated GFR (MDRD) > 60 mL/min Glucose 94 (74-106) mg/dL Hemoglobin A1c 5.6 (4.3-5.7) % Calcium 9.2 (8.5-10.1) mg/dL Total Bilirubin 0.6 (0.2-1.0) mg/dL AST 17 (15-37) U/L ALT 24 (12-78) U/L Alkaline Phosphatase 70 (46-116) IU/L Creatine Kinase 25 L (26-308) U/L Creatine Kinase Index 1.6 (0.0-2.5) % CK-MB (CK-2) 0.40 (0.00-3.60) ng/mL Troponin I 0.000 (0.000-0.056) ng/mL NT-Pro-B Natriuret Pep 262 H (0-125) pg/mL Total Protein 6.7 (6.4-8.2) g/dL Albumin 3.3 L (3.4-5.0) g/dL Triglycerides 72 (30-150) mg/dL Cholesterol 117 (100-200) mg/dL LDL Cholesterol, Calc 35 (0-100) mg/dL HDL Cholesterol 68 H (40-60) mg/dL Laboratory Results - last 24 hr 01/11/18 01/11/18 01/12/18 Range/Units 12:37 18:40 07:10 WBC 5.2 (4.0-10.2) K/uL RBC 4.85 (3.77-5.09) M/uL Hgb 14.3 (11.7-15.5) g/dL Hct 43.3 (34.0-46.0) % MCV 89.3 (84.0-98.0) fL MCH 29.5 (28.2-33.3) pg MCHC 33.0 (31.7-36.0) g/dL RDW 13.4 (11.2-14.1) % Plt Count 160 (150-350) K/uL Neut % (Auto) 58.6 (45.0-80.0) % Lymph % (Auto) 28.1 (10.0-50.0) % [place]ane % (Auto) 9.4 (2.0-14.0) % Eos % (Auto) 3.1 (0.0-5.0) % Baso % (Auto) 0.8 (0.0-2.0) % Neut # (Auto) 3.07 (1.40-7.00) K/uL Lymph # (Auto) 1.47 (0.50-3.50) K/uL Crane # (Auto) 0.49 (0.00-1.00) K/uL Eos # (Auto) 0.16 (0.00-0.50) K/uL Baso # (Auto) 0.04 (0.00-0.20) K/uL Sodium (136-145) mmol/L Potassium (3.5-5.1) mmol/L Chloride (98-107) mmol/L Carbon Dioxide (21.0-32.0) mmol/L BUN (7-18) mg/dL Creatinine (0.51-1.17) mg/dL Est Cr Clr Drug Dosing mL/min Estimated GFR (MDRD) mL/min Glucose (74-106) mg/dL Hemoglobin A1c (4.3-5.7) % Calcium (8.5-10.1) mg/dL Total Bilirubin (0.2-1.0) mg/dL AST (15-37) U/L ALT (12-78) U/L Alkaline Phosphatase (46-116) IU/L Creatine Kinase 30 32 (26-308) U/L Creatine Kinase Index 2.3 2.2 (0.0-2.5) % CK-MB (CK-2) 0.70 0.70 (0.00-3.60) ng/mL Troponin I 0.000 0.000 (0.000-0.056) ng/mL NT-Pro-B Natriuret Pep (0-125) pg/mL Total Protein (6.4-8.2) g/dL Albumin (3.4-5.0) g/dL Triglycerides (30-150) mg/dL Cholesterol (100-200) mg/dL LDL Cholesterol, Calc (0-100) mg/dL HDL Cholesterol (40-60) mg/dL 01/12/18 01/12/18 Range/Units 07:10 07:10 WBC (4.0-10.2) K/uL RBC (3.77-5.09) M/uL Hgb (11.7-15.5) g/dL Hct (34.0-46.0) % MCV (84.0-98.0) fL MCH (28.2-33.3) pg MCHC (31.7-36.0) g/dL RDW (11.2-14.1) % Plt Count (150-350) K/uL Neut % (Auto) (45.0-80.0) % Lymph % (Auto) (10.0-50.0) % Crane % (Auto) (2.0-14.0) % Eos % (Auto) (0.0-5.0) % Baso % (Auto) (0.0-2.0) % Neut # (Auto) (1.40-7.00) K/uL Lymph # (Auto) (0.50-3.50) K/uL [place]ane # (Auto) (0.00-1.00) K/uL Eos # (Auto) (0.00-0.50) K/uL Baso # (Auto) (0.00-0.20) K/uL Sodium 142 (136-145) mmol/L Potassium 3.7 (3.5-5.1) mmol/L Chloride 108 H (98-107) mmol/L Carbon Dioxide 24.6 (21.0-32.0) mmol/L BUN 14 (7-18) mg/dL Creatinine 0.78 (0.51-1.17) mg/dL Est Cr Clr Drug Dosing 51.53 mL/min Estimated GFR (MDRD) > 60 mL/min Glucose 94 (74-106) mg/dL Hemoglobin A1c 5.6 (4.3-5.7) % Calcium 9.2 (8.5-10.1) mg/dL Total Bilirubin 0.6 (0.2-1.0) mg/dL AST 17 (15-37) U/L ALT 24 (12-78) U/L Alkaline Phosphatase 70 (46-116) IU/L Creatine Kinase 25 L (26-308) U/L Creatine Kinase Index 1.6 (0.0-2.5) % CK-MB (CK-2) 0.40 (0.00-3.60) ng/mL Troponin I 0.000 (0.000-0.056) ng/mL NT-Pro-B Natriuret Pep 262 H (0-125) pg/mL Total Protein 6.7 (6.4-8.2) g/dL Albumin 3.3 L (3.4-5.0) g/dL Triglycerides 72 (30-150) mg/dL Cholesterol 117 (100-200) mg/dL LDL Cholesterol, Calc 35 (0-100) mg/dL HDL Cholesterol 68 H (40-60) mg/dL [place] Results - Last 24 hrs: None Med Orders - Current: Current Medications Acetaminophen (Tylenol) 650 mg PO Q4H PRN PRN Reason: Pain Aspirin (Halfprin) 81 mg PO DAILY [facility] Last Admin: 01/12/18 07:19 Dose: 81 mg Atorvastatin Calcium (Lipitor) 40 mg PO BEDTIME [facility] Last Admin: 01/11/18 19:10 Dose: 40 mg Ferrous Sulfate (Ferrous Sulfate) 325 mg PO DAILY [facility] Last Admin: 01/12/18 07:19 Dose: 325 mg Lisinopril (Prinivil) 30 mg PO DAILY [facility] Last Admin: 01/12/18 07:19 Dose: 30 mg Meclizine HCl (Antivert) 25 mg PO Q6H PRN PRN Reason: Dizziness Metoprolol Succinate (Toprol Xl) 50 mg PO BID [facility] Last Admin: 01/12/18 07:19 Dose: 50 mg Sodium Chloride (Saline Flush) 10 ml FLUSH ASDIRECTED PRN PRN Reason: Keep Vein Open Sodium Chloride (Saline Flush) 10 ml FLUSH Q12HR PRN PRN Reason: Keep Vein Open Temazepam (Restoril) 15 mg PO BEDTIME PRN PRN Reason: Insomnia Discontinued Medications Aspirin (Aspirin) 324 mg CHEW ONETIME ONE Stop: 01/11/18 07:30 Last Admin: 01/11/18 07:40 Dose: 324 mg Famotidine (Pepcid) 40 mg IVPUSH ONETIME ONE Stop: 01/11/18 07:30 Last Admin: 01/11/18 07:42 Dose: 40 mg Metoprolol Tartrate (Lopressor) 2.5 mg IVPUSH ONETIME ONE Stop: 01/11/18 07:32 Last Admin: 01/11/18 07:44 Dose: 2.5 mg Nitroglycerin (Nitrostat) 0.4 mg SL ONETIME STA Stop: 01/12/18 07:32 Last Admin: 01/11/18 07:41 Dose: 0.4 mg Ticagrelor (Brilinta) 180 mg PO ONETIME ONE Stop: 01/11/18 07:30 Last Admin: 01/11/18 07:41 Dose: 180 mg - Exam Quality Assessment: Reports: Supplemental Oxygen, DVT Prophylaxis. Denies: Central Line/PICC, Urine Catheter, Skin Breakdown, Restraints General: Reports: Alert, Oriented, Cooperative, No Acute Distress HEENT: Reports: Pupils Equal, Pupils Reactive, EOMI, Mucous Membr. Moist/[place] Neck: Reports: Supple, Trachea Midline, No JVD, No Thyromegaly, Carotid Bruit ( Mild bilateral carotid bruits). Denies: Lymphadenopathy Lungs: Reports: Clear to Auscultation, Normal Respiratory Effort. Denies: Rub Cardiovascular: Reports: Regular Rate, Regular Rhythm, No Murmurs. Denies: Gallops, Rubs GI/Abdominal Exam: Normal Bowel Sounds, Soft, Non-Tender, No Organomegaly, No Distention, No Abnormal Bruit, No Mass, Pelvis Stable, Other (Obese). No: Guarding (Female) Exam: Deferred Rectal (Female) Exam: Deferred Back Exam: Reports: Normal Inspection, Full Range of Motion. Denies: CVA Tenderness (L), CVA Tenderness (R), Muscle Spasm Extremities: Normal Range of Motion, Non-Tender, Normal Capillary Refill, Pedal Edema (Stable trace to +1 bilateral pedal/pretibial edema and moderate varicose veins). No: Cyndee's Sign Skin: Reports: Warm, Dry, Intact. Denies: Ecchymosis Neurological: Reports: No New Focal Deficit Psy/Mental Status: Reports: Alert, Normal Affect, Normal Mood. Denies: Agitated , Hallucinations, Withdrawal Symptoms EKG INTERPRETATION EKG Date: 01/12/18 Time: 07:39 Rhythm: NSR Rate (Beats/Min): 59 [place]: Normal (Neutral cardiac axis) P-Wave: Enlarged (Moderate diffuse biphasic P waves with pulmonary hypertension by EKG) QRS: RBBB (QRS interval of 0.12 seconds representing a returned complete right bundle branch block with stable T-wave inversion in lead V1, resolved T-wave inversion in lead 3, and new mild T-wave inversion in lead aVL) ST-T: Normal (As above) QT: Normal PA/PQ Interval: 0.15 seconds with no delta waves noted Comparison: Change From Previous EKG (As above since 01/11/18) EKG Interpretation Comments: 1. No acute ischemic changes 2. Mild sinus bradycardia 3. Recurrent right bundle branch block 4. Probable left atrial enlargement
== END 2018-01-12 11:50 | disposition home or self-care (01) ==
LOC: LL.ED 07:25 → LL.MS 08:50
PROVIDERS: ADMIT Family Medicine; ATTEND Family Medicine
DX: R07.89 Other chest pain (principal); I11.0 Hypertensive heart disease with heart failure; I50.9 Heart failure, unspecified; R73.9 Hyperglycemia, unspecified; E61.1 Iron deficiency; R42 Dizziness and giddiness; J43.1 Panlobular emphysema; E78.5 Hyperlipidemia, unspecified; M15.0 Primary generalized (osteo)arthritis; E78.00 Pure hypercholesterolemia, unspecified; I45.10 Unspecified right bundle-branch block; E88.09 Other disorders of plasma-protein metabolism, not elsewhere classified; Z79.899 Other long term (current) drug therapy; Z79.82 Long term (current) use of aspirin; Z90.89 Acquired absence of other organs
CPT/HCPCS: 36415; 71045; 80053; 80061; 82550; 82553; 83036; 83605; 83735; 83880; 84443; 84484; 84550; 85025; 85379; 85610; 85730; 93005; 96374; 96375; 99285; A9270-GY; G0378; J3490; S0028

== ENCOUNTER 2018-01-14 00:48 | Emergency (ER) | payer MEDICARE, BC ==
[2018-01-14] MEDS ORDERED: Sodium Chloride 0.9% 10 ML Syringe FLUSH PRN (00:55)
[2018-01-14] MEDS ORDERED: Ondansetron 4 MG/2 ML SDV IVPUSH ONE (00:55)
[2018-01-14] MEDS ORDERED: Sodium Chloride 0.9% 10 ML Syringe FLUSH SCH (01:00)
[2018-01-14 01:28] LABS: CHLORIDE,CL 105 mmol/L (98-107); SODIUM,NA 139 mmol/L (136-145)
[2018-01-14 01:44] VITALS: BP 153/92
--- NOTE | 2018-01-14 01:52 | EDM.PDOC ---
ED HPI GENERAL MEDICAL PROBLEM - General Chief Complaint: General Stated Complaint: nausea Time Seen by Provider: 01/14/18 01:20 Source of Information: Reports: Patient History Limitations: Reports: No Limitations - History of Present Illness INITIAL COMMENTS - FREE TEXT/NARRATIVE: Patient comes in to be seen after having two hours of insomnia, feeling clammy, and having nausea. Admits to feeling anxious. Does not like to be sick while living alone. Was here a week ago for similar feelings along with chest pain. Unremarkable workup but has pending additional testing to further rule out heart disease. This made her worried that tonight's symptoms could possibly be heart related. She denies chest pain/SOB. No respiratory complaints. Has chronic lightheadedness for which she takes Meclizine. This is not worse than usual at this time. Had several normal bowel movements today. No vomiting or bowel changes. No fevers/chills. No other specific complaints at this time. Treatments LINE SERVICER: Reports: Other Medication(s) Other Treatments LINE SERVICER: meclizine - Related Data Allergies Allergy/AdvReac Type Severity Reaction Status Date / Time No Known Allergies Allergy Verified 01/14/18 00:51 Home Meds: Home Meds Lisinopril [Prinivil] 30 mg PO DAILY 10/17/15 [History] Metoprolol Succinate [Toprol XL 50mg] 50 mg PO BID 10/17/15 [History] atorvaSTATin [Lipitor] 40 mg PO BEDTIME 10/17/15 [History] Aspirin [Ecotrin] 81 mg PO DAILY 05/14/16 [History] Ferrous Sulfate 325 mg PO DAILY #30 tablet 05/14/16 [Rx] Meclizine [Antivert] 25 mg PO Q6H PRN #30 tablet 05/14/16 [Rx] Cholecalciferol (Vitamin D3) [Vitamin D3] 2,000 unit PO DAILY #60 capsule [Rx] Magnesium Glycinate [Mag Glycinate] 100 mg PO BID #120 tablet 01/14/18 [Rx] Ondansetron [Zofran ODT] 4 mg PO Q6H PRN #10 tab.dis 01/14/18 [Rx] Ubiquinol 100 mg PO DAILY #60 capsule 01/14/18 [Rx] Past Medical History HEENT History: Reports: Impaired Vision, Other (See Below) Other HEENT History: Glasses Cardiovascular History: Reports: Arrhythmia, High Cholesterol, Hypertension, Other (See Below) Other Cardiovascular History: Complete right bundle branch block, dyslipidemia Respiratory History: Reports: COPD, Other (See Below) Other Respiratory History: COPD by chest x-ray Gastrointestinal History: Reports: None Genitourinary History: Reports: None JIG OPERATOR History: Reports: , Spontaneous Other OB/BYN History: Menopause at age 49, one SAB in first trimester with required D&C, otherwise Full term without complications during pregnancies or deliveries Musculoskeletal History: Reports: Arthritis, Fracture, Osteoarthritis, Osteoporosis, Other (See Below) Other Musculoskeletal History: Right ankle bimalleolar fracture on 07/02/10, Anne's cyst of the right knee, right wrist fracture in about 2005 Neurological History: Reports: Vertigo, Other (See Below) Other Neuro History: Chronic vertigo Psychiatric History: Reports: Anxiety, Depression Endocrine/Metabolic History: Reports: Osteopenia, Osteoporosis, Other (See Below ) Other Endocrine/Metabolic History: Hyperglycemia Hematologic History: Reports: Anemia, Iron Deficiency Immunologic History: Reports: None Oncologic (Cancer) History: Reports: None Dermatologic History: Reports: None - Infectious Disease History Infectious Disease History: Reports: Chicken Pox, Measles, Mumps - Past Surgical History Head Surgeries/Procedures: Reports: None HEENT Surgical History: Reports: Adenoidectomy, Oral Surgery, Tonsillectomy, Other (See Below) Other HEENT Surgeries/Procedures: Tonsillectomy and adenoidectomy at age 18. Multiple teeth extractions. [place] teeth extraction 4 in her late 30s Cardiovascular Surgical History: Reports: None Respiratory Surgical History: Reports: None GI Surgical History: Reports: None Female Surgical History: Reports: D&C, Other (See Below) Other Female Surgeries/Procedures: D&C secondary to SAB Endocrine Surgical History: Reports: None Neurological Surgical History: Reports: None Musculoskeletal Surgical History: Reports: Joint Replacement, Knee Replacement, Other (See Below) Other Musculoskeletal Surgeries/Procedures:: Right TKA on 10/09/15 Oncologic Surgical History: Reports: None Dermatological Surgical History: Reports: None - Past Imaging History Past Imaging History: Reports: CAT Scan (CT of the brain on 05/14/16 with previous evaluation on 01/14/03), DEXA Scan (04/23/13), Mammogram (Last mammogram on 12/20/16), Stress Testing (Cardiolite stress test on 10/21/05 with ejection fraction of 72%), Venous Doppler (Right leg on 10/18/15 and 08/31/07) Social & Family History - Family History HEENT: Reports: None Cardiac: Reports: CAD, Cardiomyopathy, Heart Failure, Hypertension, WA, Other ( See Below) Other Cardiac Family History: Father with WA in his 60s with fatal CHF in his 80s, mother with hypertension Respiratory: Reports: None GI: Reports: Cholelithiasis, Colon Polyps, Other (See Below) Other GI Family History: Mother with cholelithiasis. Sister with colon cancer as below. : Reports: None OBGYN: Reports: None Musculoskeletal: Reports: None Neurological: Reports: CVA, Other (See Below) Other Neurological Family History: Mother with CVA in her 60s Psychiatric: Reports: None Endocrine/Metabolic: Reports: None Hematologic: Reports: None Immunologic: Reports: None Dermatologic: Reports: None Oncologic: Reports: Colon, Other (See Below) Other Oncologic Family History: Sister with colon cancer in her 70s - Tobacco Use Smoking Status *Q: Never Smoker Second Hand Smoke Exposure: No - Caffeine Use Caffeine Use: Reports: Coffee, Soda, Tea Caffeine Use Comment: 3 cups of coffee per day, one glass of tea per month, and 1 soda per day - Living Situation & Occupation Living situation: Reports: (2009, 3 children), Alone Occupation: Employed ([employer]) ED ROS GENERAL - Review of Systems Review Of Systems: See Below Constitutional: Denies: Fever, Chills, Weakness, Night Sweats, Diaphoresis, Decreased Appetite, Weight Loss, Weight Gain HEENT: Reports: No Symptoms Respiratory: Reports: No Symptoms. Denies: Shortness of Breath, Cough Cardiovascular: Reports: No Symptoms. Denies: Chest Pain, Dyspnea on Exertion, Palpitations, Syncope GI/Abdominal: Reports: Nausea. Denies: Abdominal Pain, Constipation, Diarrhea, Hematemesis, Hematochezia, Vomiting : Reports: No Symptoms Musculoskeletal: Reports: No Symptoms Skin: Reports: No Symptoms Neurological: Reports: Dizziness (chronic, unchanged). Denies: Headache, Numbness, Paresthesia, Seizure, Syncope, Tingling, Trouble Speaking, Difficulty Walking, Change in Speech, Gait Disturbance Psychiatric: Reports: Anxiety Hematologic/Lymphatic: Reports: No Symptoms ED EXAM, GENERAL - Physical Exam Exam: See Below Exam Limited By: No Limitations General Appearance: Alert, WD/WN, No Apparent Distress Eye Exam: Bilateral Eye: EOMI, PERRL Ears: Normal External Exam, Normal Canal, Hearing Grossly Normal, Normal TMs Nose: No: Nasal Deformity, Nasal Swelling, Nasal Drainage Throat/Mouth: Normal Inspection, Normal Lips, Normal Voice, No Airway Compromise Head: Atraumatic, Normocephalic Neck: Normal Inspection, Supple, Non-Tender, Full Range of Motion. No: Carotid Bruit Respiratory/Chest: No Respiratory Distress, Lungs Clear, Normal Breath Sounds, No Accessory Muscle Use Cardiovascular: Normal Peripheral Pulses, Regular Rate, Rhythm, No Edema, No Murmur Peripheral Pulses: 2+: Radial (L), Radial (R) GI/Abdominal: Normal Bowel Sounds, Soft, Non-Tender, No Distention (Female) Exam: Deferred Rectal (Female) Exam: Deferred Back Exam: No: CVA Tenderness (L), CVA Tenderness (R), Muscle Spasm, Paraspinal Tenderness, Vertebral Tenderness Extremities: Normal Inspection, Normal Capillary Refill Neurological: Alert, Oriented, CN II-XII Intact, Normal Cognition, Normal Gait, No Motor/Sensory Deficits Psychiatric: Anxious Skin Exam: Warm, Dry, Intact, Normal Color EKG INTERPRETATION EKG Date: 01/14/18 Time: 01:09 Rhythm: NSR Rate (Beats/Min): 83 [place]: Normal P-Wave: Present QRS: Normal ST-T: Normal QT: Normal Comparison: No Change Course - Vital Signs Last Recorded V/S: Last Vital Signs Temp 36.7 C 01/14/18 00:55 Pulse 84 01/14/18 01:36 Resp 14 01/14/18 01:36 BP 153/92 H 01/14/18 01:36 Pulse Ox 97 01/14/18 01:36 - Orders/Labs/Meds Orders: Active Orders 24 hr Category Date Time Status Cardiac Monitoring [RC] . DIRECTED Care 01/14/18 00:55 Active EKG Documentation Completion [RC] ASDIRECTED Care 01/14/18 00:55 Active Peripheral IV Care [RC] . DIRECTED Care 01/14/18 00:56 Active UA W/MICROSCOPIC [URIN] Stat Lab 01/14/18 01:03 Ordered Sodium Chloride 0.9% [Saline Flush] Med 01/14/18 01:00 Active 10 ml FLUSH ASDIRECTED Sodium Chloride 0.9% [Saline Flush] Med 01/14/18 00:55 Active 10 ml FLUSH ASDIRECTED PRN Peripheral IV Insertion Adult [OM.PC] Routine Oth 01/14/18 00:55 Ordered EKG 12 Lead [EK] Routine Ther 01/14/18 00:54 Ordered Medication Orders Sodium Chloride (Saline Flush) 10 ml FLUSH ASDIRECTED BRENNAN Last Admin: 01/14/18 01:07 Dose: 10 ml Sodium Chloride (Saline Flush) 10 ml FLUSH ASDIRECTED PRN PRN Reason: Keep Vein Open Labs: Laboratory Tests 01/14/18 01/14/18 01/14/18 Range/Units 01:03 01:05 01:05 WBC 7.5 (4.0-10.2) K/uL RBC 5.18 H (3.77-5.09) M/uL Hgb 15.3 (11.7-15.5) g/dL Hct 45.8 (34.0-46.0) % MCV 88.4 (84.0-98.0) fL MCH 29.5 (28.2-33.3) pg MCHC 33.4 (31.7-36.0) g/dL RDW 13.3 (11.2-14.1) % Plt Count 205 (150-350) K/uL Neut % (Auto) 52.2 (45.0-80.0) % Lymph % (Auto) 35.4 (10.0-50.0) % [place] % (Auto) 8.7 (2.0-14.0) % Eos % (Auto) 2.9 (0.0-5.0) % Baso % (Auto) 0.8 (0.0-2.0) % Neut # (Auto) 3.90 (1.40-7.00) K/uL Lymph # (Auto) 2.65 (0.50-3.50) K/uL [place] # (Auto) 0.65 (0.00-1.00) K/uL Eos # (Auto) 0.22 (0.00-0.50) K/uL Baso # (Auto) 0.06 (0.00-0.20) K/uL Sodium 139 (136-145) mmol/L Potassium 3.8 (3.5-5.1) mmol/L Chloride 105 (98-107) mmol/L Carbon Dioxide 26.4 (21.0-32.0) mmol/L BUN 19 H (7-18) mg/dL Creatinine 0.86 (0.51-1.17) mg/dL Est Cr Clr Drug Dosing 46.76 mL/min Estimated GFR (MDRD) > 60 mL/min Glucose 116 H (74-106) mg/dL Calcium 9.6 (8.5-10.1) mg/dL Total Bilirubin 0.6 (0.2-1.0) mg/dL AST 26 (15-37) U/L ALT 26 (12-78) U/L Alkaline Phosphatase 91 (46-116) IU/L Troponin I 0.000 (0.000-0.056) ng/mL Total Protein 7.7 (6.4-8.2) g/dL Albumin 3.9 (3.4-5.0) g/dL Specimen Type Urincc Urine Color Light yellow Urine Appearance Clear Urine pH 5.5 (5.0-9.0) Ur Specific [place] <= 1.005 (1.005-1.030) Urine Protein Negative (NEGATIVE) mg/dL Urine Glucose (UA) Negative (NEGATIVE) mg/dL Urine Ketones Negative (NEGATIVE) mg/dL Urine Occult Blood Negative (NEGATIVE) Urine Nitrite Negative (NEGATIVE) Urine Bilirubin Negative (NEGATIVE) Urine Urobilinogen 0.2 (0.2-1.0) E.U./dL Ur Leukocyte Esterase Trace H (NEGATIVE) Urine RBC 0-5 /HPF Urine WBC 0-5 /HPF Ur Epithelial Cells Few /LPF Urine Bacteria Rare (NONE TO FEW) /HPF Meds: Medications Generic Name Dose Route Start Last Admin Trade Name Freq PRN Reason Stop Dose Admin Sodium Chloride 10 ml 01/14/18 01:00 01/14/18 01:07 Saline Flush FLUSH 10 ml ASDIRECTED BRENNAN Administration Sodium Chloride 10 ml 01/14/18 00:55 Saline Flush FLUSH ASDIRECTED PRN Keep Vein Open Discontinued Medications Generic Name Dose Route Start Last Admin Trade Name Freq PRN Reason Stop Dose Admin Ondansetron HCl 4 mg 01/14/18 00:55 01/14/18 01:07 Zofran IVPUSH 01/14/18 00:56 4 mg ONETIME ONE Administration - Re-Assessments/Exams Free Text/Narrative Re-Assessment/Exam: Patient felt significant improvement after taking Zofran and being allowed to sit for awhile. CBC/Chem/Troponin unremarkable. No ST changes/ischemia noted on EKG. Differential includes oncoming viral illness/GI cause. Anxiety appears to play a component. Discussed with patient the possibility of keeping her longer so as to continue observing her for changes. Patient wished to go home. She appeared to be more relaxed after being told that the EKG and cardiac enzymes did not show concerning changes. 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 She is also to consider OTC antacids such as Pepcid , as well as avoiding eating after 6-7pm at night in case her recent ER visits are due to GERD/reflux issues. She is to follow up as needed in the ER. Otherwise should follow up with her primary provider and followup testing that is scheduled. Departure - Departure Time of Disposition: 01:47 Disposition: Home, Self-Care 01 Condition: Good Clinical Impression: Nausea, Anxiety - Discharge Information Prescriptions: Cholecalciferol (Vitamin D3) [Vitamin D3] 2,000 unit PO DAILY #60 capsule Magnesium Glycinate [Mag Glycinate] 100 mg PO BID #120 tablet Ondansetron [Zofran ODT] 4 mg PO Q6H PRN #10 tab.dis PRN Reason: Nausea Ubiquinol 100 mg PO DAILY #60 capsule Instructions: Ondansetron tablets, Nausea, Adult, [id number], Viral Illness, Adult Referrals: Tori Dhillon, COMMAND AND CONTROL OFFICER [Primary Care Provider] - Forms: ED Department Discharge Additional Instructions: Watch for changes. See how you feel over the next day or two. Follow up as needed if you have worsening problems or if this does not appear to be a viral illness. - My Orders Last 24 Hours: My Active Orders 01/14/18 00:54 EKG 12 Lead [EK] Routine 01/14/18 00:55 Cardiac Monitoring [RC] . DIRECTED EKG Documentation Completion [RC] ASDIRECTED Sodium Chloride 0.9% [Saline Flush] 10 ml FLUSH ASDIRECTED PRN Peripheral IV Insertion Adult [OM.PC] Routine 01/14/18 00:56 Peripheral IV Care [RC] . DIRECTED 01/14/18 01:00 Sodium Chloride 0.9% [Saline Flush] 10 ml FLUSH ASDIRECTED 01/14/18 01:03 UA W/MICROSCOPIC [URIN] Stat - Assessment/Plan Last 24 Hours: My Active Orders 01/14/18 00:54 EKG 12 Lead [EK] Routine 01/14/18 00:55 Cardiac Monitoring [RC] . DIRECTED EKG Documentation Completion [RC] ASDIRECTED Sodium Chloride 0.9% [Saline Flush] 10 ml FLUSH ASDIRECTED PRN Peripheral IV Insertion Adult [OM.PC] Routine 01/14/18 00:56 Peripheral IV Care [RC] . DIRECTED 01/14/18 01:00 Sodium Chloride 0.9% [Saline Flush] 10 ml FLUSH ASDIRECTED 01/14/18 01:03 UA W/MICROSCOPIC [URIN] Stat
== END 2018-01-14 02:15 | disposition home or self-care (01) ==
LOC: LL.ED 00:48
DX: R11.0 Nausea (principal); F41.9 Anxiety disorder, unspecified; E78.00 Pure hypercholesterolemia, unspecified; I10 Essential (primary) hypertension; J44.9 Chronic obstructive pulmonary disease, unspecified; F32.9 Major depressive disorder, single episode, unspecified; D50.9 Iron deficiency anemia, unspecified; Z79.82 Long term (current) use of aspirin; Z79.899 Other long term (current) drug therapy
CPT/HCPCS: 36415; 80053; 81001; 84484; 85025; 93005; 96374; 99284; J2405; J7050

== ENCOUNTER 2018-08-29 18:02 | Emergency (ER) | payer MEDICARE, BC ==
[2018-08-29] MEDS ORDERED: Sodium Chloride 0.9% 10 ML Syringe FLUSH PRN (18:20)
[2018-08-29] MEDS ORDERED: Famotidine 20 MG/2 ML SDV IVPUSH ONE (18:20)
[2018-08-29] MEDS ORDERED: Metoprolol Tartrate 5 MG/5 ML SDV IVPUSH ONE (18:20)
--- NOTE | 2018-08-29 18:20 | EDM.PDOC ---
ED HPI GENERAL MEDICAL PROBLEM - General Chief Complaint: General Stated Complaint: DIZZINESS Time Seen by Provider: 08/29/18 18:15 Source of Information: Reports: Patient, Family (Son), Old Records ([facility] chart/EMR) History Limitations: Reports: No Limitations - History of Present Illness INITIAL COMMENTS - FREE TEXT/NARRATIVE: The patient is brought to the emergency room via private automobile by her son for evaluation of her hypertension with elevated home systolic blood pressures in the 180s by their history. Note the patient was seen by her regular provider , MAREK Chinchilla at the [facility], yesterday with her lisinopril increased from 30 mg to 40 mg by mouth every morning with first increased dose taken this morning. The patient and her son do admit to significant increased stressors recently. The patient denies any chest pain/ pressure, heart flutter, orthostasis, orthopnea, diaphoresis, paresthesias, recent decreased exercise tolerance, or any other anginal-type symptoms, although occasional nonspecific dizziness. No recent history of abdominal pain, heartburn, nausea, diarrhea, melena, gross hematochezia, or any food intolerance , including fatty foods, etc.. She denies any gross hematuria, colic, or other UTI symptoms. The patient also denies any recent fever, cough, wheezing, dyspnea , etc.. No history of recent headaches, visual changes, diplopia, change in mental status, or other change in neurological status. Patient has yet to get her influenza booster. She denies any current pain or discomfort. Onset: Gradual Duration: Week(s): Location: Reports: Other (No pain) Improves with: Reports: None Worsens with: Reports: None Context: Reports: Other (As above). 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 Medication(s) (As above) - Related Data Allergies Allergy/AdvReac Type Severity Reaction Status Date / Time No Known Allergies Allergy Verified 08/29/18 18:15 Home Meds: Home Meds Metoprolol Succinate [Toprol XL 50mg] 50 mg PO BID 10/17/15 [History] atorvaSTATin [Lipitor] 40 mg PO BEDTIME 10/17/15 [History] Aspirin [Ecotrin] 81 mg PO DAILY 05/14/16 [History] Ferrous Sulfate 325 mg PO DAILY #30 tablet 05/14/16 [Rx] Meclizine [Antivert] 25 mg PO Q6H PRN #30 tablet 05/14/16 [Rx] Cholecalciferol (Vitamin D3) [Vitamin D3] 2,000 unit PO DAILY #60 capsule [Rx] Magnesium Glycinate [Mag Glycinate] 100 mg PO BID #120 tablet 01/14/18 [Rx] Ondansetron [Zofran ODT] 4 mg PO Q6H PRN #10 tab.dis 01/14/18 [Rx] Citalopram Hydrobromide [Celexa] 10 mg PO DAILY #30 tablet 08/29/18 [Rx] Lisinopril 40 mg PO DAILY 08/29/18 [History] Past Medical History HEENT History: Reports: Impaired Vision, Other (See Below). Denies: Allergic Rhinitis, Cataract, Glaucoma, Hard of Hearing, Macular Degeneration, Retinal Detachment Other HEENT History: Patient wears Glasses. Cardiovascular History: Reports: Arrhythmia, Cardiomyopathy, Heart Failure, Heart Murmur, High Cholesterol, Hypertension, Pulmonary Hypertension, Other ( See Below). Denies: Afib, Aneurysm, Blood Clots/VTE/DVT, CAD, MD, PVD, Syncope Other Cardiovascular History: Complete/incomplete right bundle branch block; dyslipidemia. Grade 2 diastolic dysfunction, mild pulmonary hypertension, and moderate left atrial enlargement by echocardiogram on 01/17/18. Respiratory History: Reports: Bronchitis, Recurrent, COPD, Intubation, Previous , Other (See Below). Denies: Asthma, Intubation, Difficult, PE, Pneumonia, Recurrent, Pneumothorax, Sleep Apnea, TB Other Respiratory History: COPD by chest x-ray Gastrointestinal History: Reports: None. Denies: Celiac Disease, Cholelithiasis , Chronic Constipation, Chronic Diarrhea, Colon Polyp, Gastritis, GERD, GI Bleed , Hepatitis, Inflammatory Bowel Disease, Irritable Bowel Syndrome, Jaundice, Pancreatitis, PUD Genitourinary History: Reports: None. Denies: Acute Renal Failure, Chronic Renal Insuffiency, Renal Calculus, Retention, Urinary, STD, Urinary Incontinence , UTI, Recurrent EDUCATIONAL AID History: Reports: , Spontaneous . Denies: Dysfunctional Uterine Bleeding, Endometriosis, Fibroids : 4 Para: 3 LMP (Approximate): Other (See Below) Other EDUCATIONAL AID History: Menopause at age 49, one SAB in first trimester with required D&C, otherwise Full term without complications during pregnancies or deliveries Musculoskeletal History: Reports: Arthritis, Fracture, Osteoarthritis, Osteoporosis, Other (See Below). Denies: Back Pain, Chronic, Gout, Neck Pain, Chronic, RA, SLE Other Musculoskeletal History: Right ankle bimalleolar fracture on 07/02/10, Anne's cyst of the right knee, right wrist fracture in about 2005 Neurological History: Reports: Vertigo, Other (See Below). Denies: Cerebral Aneurysms, Concussion, CVA, Headaches, Chronic, Head Trauma, Migraines, MS, Neuropathy, Peripheral, Parkinson's, Seizure, TIA Other Neuro History: Chronic vertigo Psychiatric History: Reports: Anxiety, Depression. Denies: Abuse, Victim of, ADD, ADHD, Addiction, Psych Hospitalization(s), PTSD, Suicide Attempt, Suicidal Ideation Endocrine/Metabolic History: Reports: Osteopenia, Osteoporosis, Other (See Below ). Denies: Diabetes, Gestational, Diabetes, Type I, Diabetes, Type II, Diabetes Mellitus, Type 3c, Hypothyroidism, IDDM Other Endocrine/Metabolic History: Hyperglycemia. Hypoalbuminemia. Hematologic History: Reports: Anemia, Iron Deficiency. Denies: Blood Transfusion(s) Immunologic History: Reports: None. Denies: AIDS, HIV, SLE Oncologic (Cancer) History: Reports: None. Denies: Basal Cell Carcinoma, Cervix , Colon, Hodgkin's Lymphoma, Leukemia, Lymphoma, Malignant Melanoma, Non-Hodgkin 's Lymphoma, Ovarian, Squamous Cell Carcinoma, Uterine Dermatologic History: Reports: None. Denies: Eczema, Psoriasis - Infectious Disease History Infectious Disease History: Reports: Chicken Pox, Measles, Mumps. Denies: C- Difficile, Meningitis, Mononucleosis, MRSA, Pertussis (Whooping Cough), Rheumatic Fever, Rubella, Scarlet Fever, Shingles, TB, VRE - Past Surgical History Head Surgeries/Procedures: Reports: None HEENT Surgical History: Reports: Adenoidectomy, Oral Surgery, Tonsillectomy, Other (See Below). Denies: Cataract Surgery, Eye Surgery, Laser Surgery, LASIK , Myringotomy w Tube(s), Naso-Sinus Surgery Other HEENT Surgeries/Procedures: Tonsillectomy and adenoidectomy at age 18. Multiple teeth extractions. [place] teeth extraction 4 in her late 30s Cardiovascular Surgical History: Reports: None. Denies: Varicose Respiratory Surgical History: Reports: None. Denies: Thoracentesis GI Surgical History: Reports: None. Denies: Appendectomy, Cholecystectomy, Colonoscopy, EGD, Hernia, Abdominal, Hernia, Inguinal, Hernia Repair/Other, Polypectomy Female Surgical History: Reports: D&C, Other (See Below). Denies: Breast Biopsy, Section, Hysterectomy, Oophorectomy, Salpingo-Oophorectomy, Tubal Ligation Other Female Surgeries/Procedures: D&C secondary to SAB Endocrine Surgical History: Reports: None Neurological Surgical History: Reports: None. Denies: C-Spine, Discectomy, Laminectomy, Lumbar Spine, Sacral Spine, Spinal Fusion, Thoracic Spine, Vertebroplasty Musculoskeletal Surgical History: Reports: Joint Replacement, Knee Replacement, Other (See Below). Denies: Arthroscopic Procedure, Carpal Tunnel, Ganglion Cyst , ORIF, Shoulder Surgery Other Musculoskeletal Surgeries/Procedures:: Right TKA on 10/09/15 Oncologic Surgical History: Reports: None Dermatological Surgical History: Reports: None - Past Imaging History Past Imaging History: Reports: Cardiac Echo (01/17/18 with ejection fraction of 65 70 percent with otherwise findings as above.), CAT Scan (CT of the brain on with previous evaluation on 01/14/03), DEXA Scan (04/23/13), Mammogram (Last mammogram on 12/20/16), Stress Testing (Cardiolite stress test on 10/21/05 with ejection fraction of 72%), Venous Doppler (Right leg on 10/18/15 and 08/31/07) Social & Family History - Family History HEENT: Reports: None. Denies: Glaucoma, Macular Degeneration, Retinal Detachment Cardiac: Reports: CAD, Cardiomyopathy, Heart Failure, Hypertension, MD, Other ( See Below). Denies: Afib, Aneurysm, Arrhythmia, Blood Clots/VTE/DVT, High Cholesterol, PVD/COD, Syncope Other Cardiac Family History: Father with MD in his 60s with fatal CHF in his 80s, mother with hypertension Respiratory: Reports: None. Denies: Asthma, COPD, PE, Pneumothorax, Sleep Apnea GI: Reports: Cholelithiasis, Colon Polyps, Other (See Below). Denies: Celiac Disease, GERD, GI bleed, Inflammatory Bowel Disease, Irritable Bowel Syndrome Other GI Family History: Mother with cholelithiasis. Sister with colon cancer as below. : Reports: None. Denies: Renal Calculus, Renal Disease/Insufficiency OBGYN: Reports: None. Denies: Endometriosis, Recurrent Spontaneous Musculoskeletal: Reports: None. Denies: Arthritis, Gout, RA, SLE Neurological: Reports: CVA, Other (See Below). Denies: Alzheimers Disease, Cerebral Aneurysms, Dementia, Migraines, MS, Seizure Other Neurological Family History: Mother with CVA in her 60s Psychiatric: Reports: None. Denies: Abuse, Victim of, ADD, ADHD, Anxiety, Depression, Psych Hospitalization(s), PTSD, Suicide Attempt Endocrine/Metabolic: Reports: None. Denies: Diabetes, Gestational, Diabetes, Type I, Diabetes, type II, Diabetes Mellitus, Type 3c, Hypothyroidism, IDDM Hematologic: Reports: None. Denies: Anemia Immunologic: Reports: None. Denies: AIDS, HIV, SLE Dermatologic: Reports: None. Denies: Eczema, Psoriasis Oncologic: Reports: Colon, Other (See Below). Denies: Breast, Cervix, Hodgkin' s Lymphoma, Leukemia, Lymphoma, Non-Hodgkin's Lymphoma, Skin, Uterine Other Oncologic Family History: Sister with colon cancer in her 70s - Tobacco Use Smoking Status *Q: Never Smoker Tobacco Use Within Last Twelve Months: No Used Tobacco, but Quit: No Smoking Cessation Information Provided To Patient: No Second Hand Smoke Exposure: No Second Hand Smoke Education Provided: No - Caffeine Use Caffeine Use: Reports: Coffee, Soda, Tea. Denies: Energy Drinks Caffeine Use Comment: 3 cups of coffee per day, one glass of tea per month, and 1 soda per day - Alcohol Use Alcohol Use History: No Days Per Week of Alcohol Use: 0 Number of Drinks Per Day: 0 Number of Drinks Per Day Comment: No previous DWIs, problems with alcohol abuse , etc. 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 ED EXAM, GENERAL - Physical Exam Exam: See Below Exam Limited By: No Limitations General Appearance: Alert, WD/WN, No Apparent Distress, Anxious (Mild to moderate) Eye Exam: Bilateral Eye: EOMI, Normal Fundi, Normal Inspection (No nystagmus. Patient wearing glasses), Periorbital Changes Ears: Normal External Exam, Normal Canal, Hearing Grossly Normal, Normal TMs Nose: Normal Inspection, Normal Mucosa, No Blood Throat/Mouth: Normal Inspection, Normal Lips, Normal Teeth (Occasional missing teeth), Normal Gums, Normal Oropharynx, Normal Voice, No Airway Compromise. No : Dysphagia, Inflammation, Perioral Cyanosis Head: Atraumatic, Normocephalic. No: Facial Swelling, Facial Tenderness, Sinus Tenderness Neck: Supple, Non-Tender, Full Range of Motion, Carotid Bruit (Mild bilateral carotid bruits). No: Lymphadenopathy (L), Lymphadenopathy (R), Thyromegaly Respiratory/Chest: No Respiratory Distress, Lungs Clear, Normal Breath Sounds, No Accessory Muscle Use, Chest Non-Tender. No: Pleural Rub, Retractions Cardiovascular: Normal Peripheral Pulses, Regular Rate, Rhythm, No Edema, No Gallop, No JVD, No Murmur, No Rub. No: Gallop/S3, Gallop/S4, Friction Rub Peripheral Pulses: 2+: Radial (L), Radial (R), Dorsalis Pedis (L), Dorsalis Pedis (R) GI/Abdominal: Normal Bowel Sounds, Soft, Non-Tender, No Organomegaly, No Distention, No Abnormal Bruit, No Mass, Other (Obese). No: Guarding (Female) Exam: Deferred Rectal (Female) Exam: Deferred Back Exam: Normal Inspection, Full Range of Motion. No: CVA Tenderness (L), CVA Tenderness (R), Muscle Spasm Extremities: Normal Inspection, Normal Range of Motion, Non-Tender, No Pedal Edema, Normal Capillary Refill. No: Cyndee's Sign Neurological: Alert, Oriented, CN II-XII Intact, Normal Cognition, Normal Gait, Normal Reflexes (Negative Babinski's), No Motor/Sensory Deficits Psychiatric: Anxious (Mild to moderate), Depressed Mood (Borderline) Skin Exam: Warm, Dry, Intact, Normal Color, No Rash. No: Diaphoretic, Wound/ Incision Lymphatic: No Adenopathy EKG INTERPRETATION EKG Date: 08/29/18 Time: 18:55 Rhythm: NSR Rate (Beats/Min): 66 [place]: Normal (Left cardiac axis) P-Wave: Present (Mild Diffuse biphasic P waves mild poor R-wave progression in the anterior leads) QRS: Normal (QRS interval of 0.09 seconds representing repolarization changes versus borderline incomplete right bundle branch block with new T wave inversion in lead 3 but stable T-wave inversion in lead V1.) ST-T: Normal QT: Normal MT/PQ Interval: 0.14 seconds with no delta waves noted and somewhat noisy baseline Comparison: Change From Previous EKG (As above since 01/14/18) EKG Interpretation Comments: 1. No acute ischemic changes 2. Short MT interval 3. Repolarization changes versus borderline incomplete right bundle branch block Course - Vital Signs Last Recorded V/S: Last Vital Signs Temp 36.9 C 08/29/18 18:02 Pulse 72 08/29/18 19:42 Resp 17 08/29/18 19:42 BP 182/79 H 08/29/18 19:42 Pulse Ox 97 08/29/18 19:42 Vital Signs - 24 hr 08/29/18 08/29/18 08/29/18 18:02 18:20 18:37 Temperature [ 36.9 C Temporal] Pulse, 72 Peripheral Pulse, 77 72 Peripheral [ Pulse Oximetry] Respiratory 16 16 Rate Blood Pressure 179/75 H Blood Pressure 185/83 H 186/85 H [Left Arm] O2 Sat by Pulse 100 100 Oximetry 08/29/18 08/29/18 08/29/18 19:04 19:27 19:42 Temperature [ Temporal] Pulse, Peripheral Pulse, 72 72 72 Peripheral [ Pulse Oximetry] Respiratory 17 20 17 Rate Blood Pressure Blood Pressure 184/75 H 168/70 H 182/79 H [Left Arm] O2 Sat by Pulse 97 97 97 Oximetry - Orders/Labs/Meds Orders: Active Orders 24 hr Category Date Time Status Cardiac Monitoring [RC] . DIRECTED Care 08/29/18 18:20 Active EKG Documentation Completion [RC] ASDIRECTED Care 08/29/18 18:20 Active Oxygen Therapy, ED [RC] PRN Care 08/29/18 18:20 Active Peripheral IV Care [RC] . DIRECTED Care 08/29/18 18:20 Active Pulse Oximetry [RC] CONTINUOUS Care 08/29/18 18:20 Active Up With Assistance [RC] PFP Care 08/29/18 18:20 Active Vital Signs [RC] PFP Care 08/29/18 18:20 Active Nothing per Oral Now Diet [DIET] Diet 08/29/18 Breakfast Active Chest 1V Frontal [CR] Stat Exams 08/29/18 18:20 Taken Sodium Chloride 0.9% [Saline Flush] Med 08/29/18 18:20 Active 10 ml FLUSH ASDIRECTED PRN Obtain Past Medical Record [OM.PC] Urgent Oth 08/29/18 18:20 Active Peripheral IV Insertion Adult [OM.PC] Stat Oth 08/29/18 18:20 Ordered Resuscitation Status Stat Resus Stat 08/29/18 18:20 Ordered Medication Orders Sodium Chloride (Saline Flush) 10 ml FLUSH ASDIRECTED PRN PRN Reason: Keep Vein Open Last Admin: 08/29/18 18:38 Dose: 10 ml Labs: Laboratory Tests 08/29/18 08/29/18 08/29/18 Range/Units 18:30 18:30 18:30 WBC 6.0 (4.0-10.2) K/uL RBC 4.98 (3.77-5.09) M/uL Hgb 15.0 (11.7-15.5) g/dL Hct 43.9 (34.0-46.0) % MCV 88.2 (84.0-98.0) fL MCH 30.1 (28.2-33.3) pg MCHC 34.2 (31.7-36.0) g/dL RDW 12.6 (11.2-14.1) % Plt Count 184 (150-350) K/uL Neut % (Auto) 60.2 (45.0-80.0) % Lymph % (Auto) 26.2 (10.0-50.0) % Upson % (Auto) 8.6 (2.0-14.0) % Eos % (Auto) 3.7 (0.0-5.0) % Baso % (Auto) 1.3 (0.0-2.0) % Neut # (Auto) 3.59 (1.40-7.00) K/uL Lymph # (Auto) 1.56 (0.50-3.50) K/uL [place]pson # (Auto) 0.51 (0.00-1.00) K/uL Eos # (Auto) 0.22 (0.00-0.50) K/uL Baso # (Auto) 0.08 (0.00-0.20) K/uL PT 10.6 (9.5-12.0) SEC INR 1.0 APTT 26.5 (21.0-31.3) SEC Sodium 139 (136-145) mmol/L Potassium 3.9 (3.5-5.1) mmol/L Chloride 100 (98-107) mmol/L Carbon Dioxide 28.6 (21.0-32.0) mmol/L BUN 18 (7-18) mg/dL Creatinine 0.80 (0.51-1.17) mg/dL Est Cr Clr Drug Dosing 49.49 mL/min Estimated GFR (MDRD) > 60 mL/min Glucose 120 H (74-106) mg/dL Lactic Acid (0.4-2.0) mmol/L Uric Acid 4.9 (2.6-7.2) mg/dL Calcium 9.5 (8.5-10.1) mg/dL Magnesium 2.0 (1.8-2.4) mg/dL Total Bilirubin 0.7 (0.2-1.0) mg/dL AST 21 (15-37) U/L ALT 23 (12-78) U/L Alkaline Phosphatase 79 (46-116) IU/L Creatine Kinase 32 (26-308) U/L Creatine Kinase Index 1.9 (0.0-2.5) % CK-MB (CK-2) 0.60 (0.00-3.60) ng/mL Troponin I 0.000 (0.000-0.056) ng/mL NT-Pro-B Natriuret Pep 273 H (0-125) pg/mL Total Protein 7.5 (6.4-8.2) g/dL Albumin 3.9 (3.4-5.0) g/dL TSH, Ultra Sensitive 2.919 (0.358-3.740) mIU/mL 08/29/18 Range/Units 18:30 WBC (4.0-10.2) K/uL RBC (3.77-5.09) M/uL Hgb (11.7-15.5) g/dL Hct (34.0-46.0) % MCV (84.0-98.0) fL MCH (28.2-33.3) pg MCHC (31.7-36.0) g/dL RDW (11.2-14.1) % Plt Count (150-350) K/uL Neut % (Auto) (45.0-80.0) % Lymph % (Auto) (10.0-50.0) % Upson % (Auto) (2.0-14.0) % Eos % (Auto) (0.0-5.0) % Baso % (Auto) (0.0-2.0) % Neut # (Auto) (1.40-7.00) K/uL Lymph # (Auto) (0.50-3.50) K/uL [place]pson # (Auto) (0.00-1.00) K/uL Eos # (Auto) (0.00-0.50) K/uL Baso # (Auto) (0.00-0.20) K/uL PT (9.5-12.0) SEC INR APTT (21.0-31.3) SEC Sodium (136-145) mmol/L Potassium (3.5-5.1) mmol/L Chloride (98-107) mmol/L Carbon Dioxide (21.0-32.0) mmol/L BUN (7-18) mg/dL Creatinine (0.51-1.17) mg/dL Est Cr Clr Drug Dosing mL/min Estimated GFR (MDRD) mL/min Glucose (74-106) mg/dL Lactic Acid 1.5 (0.4-2.0) mmol/L Uric Acid (2.6-7.2) mg/dL Calcium (8.5-10.1) mg/dL Magnesium (1.8-2.4) mg/dL Total Bilirubin (0.2-1.0) mg/dL AST (15-37) U/L ALT (12-78) U/L Alkaline Phosphatase (46-116) IU/L Creatine Kinase (26-308) U/L Creatine Kinase Index (0.0-2.5) % CK-MB (CK-2) (0.00-3.60) ng/mL Troponin I (0.000-0.056) ng/mL NT-Pro-B Natriuret Pep (0-125) pg/mL Total Protein (6.4-8.2) g/dL Albumin (3.4-5.0) g/dL TSH, Ultra Sensitive (0.358-3.740) mIU/mL Meds: Medications Generic Name Dose Route Start Last Admin Trade Name Freq PRN Reason Stop Dose Admin Sodium Chloride 10 ml 08/29/18 18:20 08/29/18 18:38 Saline Flush FLUSH 10 ml ASDIRECTED PRN Administration Keep Vein Open Discontinued Medications Generic Name Dose Route Start Last Admin Trade Name Freq PRN Reason Stop Dose Admin Famotidine 40 mg 08/29/18 18:20 08/29/18 18:38 Pepcid IVPUSH 08/29/18 18:21 40 mg ONETIME ONE Administration Metoprolol Tartrate 2.5 mg 08/29/18 18:20 08/29/18 18:37 Lopressor IVPUSH 08/29/18 18:21 2.5 mg ONETIME ONE Administration - Radiology Interpretation Free Text/Narrative:: 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 Departure - Departure Time of Disposition: 20:15 Disposition: Home, Self-Care 01 Condition: Good Clinical Impression: Dyslipidemia, Hyperglycemia, Mixed anxiety depressive disorder CHF (congestive heart failure) Qualifiers: Heart failure type: unspecified Heart failure chronicity: acute Qualified Code( s): I50.9 - Heart failure, unspecified COPD (chronic obstructive pulmonary disease) Qualifiers: COPD type: emphysema Emphysema type: panlobular Qualified Code(s): J43.1 - Panlobular emphysema Hypertension Qualifiers: Hypertension type: essential hypertension Qualified Code(s): I10 - Essential ( primary) hypertension Osteoarthritis Qualifiers: Osteoarthritis location: multiple joints Osteoarthritis type: primary Qualified Code(s): M15.0 - Primary generalized (osteo)arthritis - Discharge Information *PRESCRIPTION DRUG MONITORING PROGRAM REVIEWED*: Not Applicable *COPY OF PRESCRIPTION DRUG MONITORING REPORT IN PATIENT ALANIS: Not Applicable Prescriptions: Citalopram Hydrobromide [Celexa] 10 mg PO DAILY #30 tablet Referrals: Tori Dhillon, PRODUCTION EXPEDITER [Primary Care Provider] - Forms: ED Department Discharge Additional Instructions: 1. Followup with your regular provider as already scheduled in about 2 weeks with recommended repeat basic metabolic panel at that time. Bring these discharge instructions with you to that visit. 2. In addition, discuss new Celexa medication for your anxiety at that visit 3. Alternating daily blood pressure and pulse checks on an a.m./p.m. basis with record to be brought to each visit including the above follow-up. 4. Immediately after this visit verify that your cellular telephone's voicemail has been activated and is empty. Also verify that your home telephone 's answering machine is operating properly and has space to receive messages. Note that it is sometimes necessary for us to be able to contact you at a later date to discuss your medical care. 5. Please remember that we are ALWAYS here for you and want to answer any questions you may have. Feel free to call the hospital any time and we call you back LIZETH. - Problem List & Annotations (1) Hypertension SNOMED Code(s): 20078721 Code(s): I10 - ESSENTIAL (PRIMARY) HYPERTENSION Status: Chronic Priority : Medium Current Visit: Yes Annotation/Comment:: Note recent increase of her lisinopril as above. Continue home blood pressure checks however now only on a daily basis alternating in the a.m. and p.m. as directed. Blood pressure record to be brought to each follow-up visit as per discharge instructions. No further change of her medications at this time. The patient was given low-dose IV Lopressor in the emergency room with patient not yet having taken her evening medications. No further blood pressure medication adjustments for now. Close follow-up by her regular provider as already scheduled, although repeat BMP is recommended secondary to her recently increased lisinopril. Patient and son do acknowledge that current stressors may be aggravating her blood pressure. Qualifiers: Hypertension type: essential hypertension Qualified Code(s): I10 - Essential (primary) hypertension (2) Dyslipidemia SNOMED Code(s): 221432854 Code(s): E78.5 - HYPERLIPIDEMIA, UNSPECIFIED Status: Chronic Priority: Medium Current Visit: Yes Annotation/Comment:: Currently under therapy. Continue close follow-up by her regular provider. Weight loss in moderation advisable. (3) Osteoarthritis SNOMED Code(s): 757922332 Code(s): M19.90 - UNSPECIFIED OSTEOARTHRITIS, UNSPECIFIED SITE Status: Chronic Priority: Medium Current Visit: Yes Annotation/Comment:: Stable by history Qualifiers: Osteoarthritis location: multiple joints Osteoarthritis type: primary Qualified Code(s): M15.0 - Primary generalized (osteo)arthritis (4) Hyperglycemia SNOMED Code(s): 99446104 Code(s): R73.9 - HYPERGLYCEMIA, UNSPECIFIED Status: Chronic Priority: Medium Current Visit: Yes Onset Date: 05/14/16 Annotation/Comment:: Mildly elevated random glucose today with normal glycosylated hemoglobin of 5.6 on 01/12/18. Continue to observe closely for now. (5) COPD (chronic obstructive pulmonary disease) SNOMED Code(s): 08186442 Code(s): J44.9 - CHRONIC OBSTRUCTIVE PULMONARY DISEASE, UNSPECIFIED Status : Chronic Priority: Medium Current Visit: Yes Onset Date: 05/14/16 Annotation/Comment:: COPD by chest x-ray. Consider PFTs, however no recent fever or bronchitic-type symptoms. She was strongly encouraged to update her influenza booster LIZETH. Qualifiers: COPD type: emphysema Emphysema type: panlobular Qualified Code(s): J43.1 - Panlobular emphysema (6) CHF (congestive heart failure) SNOMED Code(s): 42410508 Code(s): I50.9 - HEART FAILURE, UNSPECIFIED Status: Acute Priority: High Current Visit: Yes Onset Date: 01/11/18 Annotation/Comment:: Stable per medical records with no chest pain or anginal type symptoms. Patient did have an echocardiogram, however elected not to have a repeat Cardiolite stress test after recent hospitalization in December 2017. Recent increase of her lisinopril. Continue close observation by her regular provider. She was encouraged to schedule her previously recommended colonoscopy [facility] especially in light of her sister's history of colon cancer. Qualifiers: Heart failure type: unspecified Heart failure chronicity: acute Qualified Code(s): I50.9 - Heart failure, unspecified (7) Mixed anxiety depressive disorder SNOMED Code(s): 489245505 Code(s): F41.8 - OTHER SPECIFIED ANXIETY DISORDERS Status: Chronic Priority: High Current Visit: Yes Annotation/Comment:: Significant current stressors as above. Various therapeutic options were discussed with low-dose Celexa therapy initiated per the patient and her son's request. Close follow-up by regular provider. Emotional support provided. - Problem List Review Problem List Initiated/Reviewed/Updated: Yes - My Orders Last 24 Hours: My Active Orders 08/29/18 18:20 Cardiac Monitoring [RC] . DIRECTED EKG Documentation Completion [RC] ASDIRECTED Oxygen Therapy, ED [RC] PRN Peripheral IV Care [RC] . DIRECTED Pulse Oximetry [RC] CONTINUOUS Up With Assistance [RC] PFP Vital Signs [RC] PFP Chest 1V Frontal [CR] Stat Sodium Chloride 0.9% [Saline Flush] 10 ml FLUSH ASDIRECTED PRN Obtain Past Medical Record [OM.PC] Urgent Peripheral IV Insertion Adult [OM.PC] Stat Resuscitation Status Stat 08/29/18 Breakfast Nothing per Oral Now Diet [DIET] - Assessment/Plan Last 24 Hours: My Active Orders 08/29/18 18:20 Cardiac Monitoring [RC] . DIRECTED EKG Documentation Completion [RC] ASDIRECTED Oxygen Therapy, ED [RC] PRN Peripheral IV Care [RC] . DIRECTED Pulse Oximetry [RC] CONTINUOUS Up With Assistance [RC] PFP Vital Signs [RC] PFP Chest 1V Frontal [CR] Stat Sodium Chloride 0.9% [Saline Flush] 10 ml FLUSH ASDIRECTED PRN Obtain Past Medical Record [OM.PC] Urgent Peripheral IV Insertion Adult [OM.PC] Stat Resuscitation Status Stat 08/29/18 Breakfast Nothing per Oral Now Diet [DIET] Assessment:: As above Plan: As above. Extensive precautions were given to the patient and her son, who are in agreement with the treatment plan. See Patient Instructions for further treatment and plan.
[2018-08-29 19:04] LABS: CHLORIDE,CL 100 mmol/L (98-107); SODIUM,NA 139 mmol/L (136-145)
[2018-08-29 19:58] VITALS: BP 182/79
== END 2018-08-29 20:15 | disposition home or self-care (01) ==
LOC: LL.ED 18:02
DX: I11.0 Hypertensive heart disease with heart failure (principal); I50.9 Heart failure, unspecified; R73.9 Hyperglycemia, unspecified; F41.8 Other specified anxiety disorders; E78.5 Hyperlipidemia, unspecified; M15.0 Primary generalized (osteo)arthritis; J44.9 Chronic obstructive pulmonary disease, unspecified; Z79.82 Long term (current) use of aspirin; Z79.899 Other long term (current) drug therapy
CPT/HCPCS: 36415; 71045; 80053; 82550; 82553; 83605; 83735; 83880; 84443; 84484; 84550; 85025; 85610; 85730; 93005; 96374; 96375; 99285; J3490

== ENCOUNTER 2018-09-06 06:57 | Emergency (ER) | payer MEDICARE, BC ==
[2018-09-06] MEDS ORDERED: LORazepam 1 MG Tab PO ONE (07:16)
--- NOTE | 2018-09-06 08:13 | EDM.PDOC ---
ED HPI GENERAL MEDICAL PROBLEM - General Chief Complaint: Cardiovascular Problem Stated Complaint: Hypertension Time Seen by Provider: 09/06/18 07:10 Source of Information: Reports: Patient History Limitations: Reports: No Limitations - History of Present Illness INITIAL COMMENTS - FREE TEXT/NARRATIVE: Patient is a 78-year-old who is seen in the emergency room secondary of not feeling well she is concerned about her blood pressure she has been seen in the ER and in the clinic recently today blood pressure is 158/70 she did take it at home prior to coming in and patient has gone through a lot stress in the past couple months her sister was diagnosed about 5 years ago with breast cancer last night. Onset: Gradual Duration: Day(s):, Getting Worse Location: Reports: Generalized Quality: Reports: Ache Severity: Moderate Improves with: Reports: Medication Worsens with: Reports: Rest Associated Symptoms: Reports: Loss of Appetite, Nausea/Vomiting - Related Data Allergies Allergy/AdvReac Type Severity Reaction Status Date / Time No Known Allergies Allergy Verified 08/29/18 18:15 Home Meds: Home Meds Metoprolol Succinate [Toprol XL 50mg] 50 mg PO QPM 10/17/15 [History] atorvaSTATin [Lipitor] 40 mg PO BEDTIME 10/17/15 [History] Aspirin [Ecotrin] 81 mg PO DAILY 05/14/16 [History] Ferrous Sulfate 325 mg PO DAILY #30 tablet 05/14/16 [Rx] Meclizine [Antivert] 25 mg PO Q6H PRN #30 tablet 05/14/16 [Rx] Cholecalciferol (Vitamin D3) [Vitamin D3] 2,000 unit PO DAILY #60 capsule [Rx] Magnesium Glycinate [Mag Glycinate] 100 mg PO BID #120 tablet 01/14/18 [Rx] Ondansetron [Zofran ODT] 4 mg PO Q6H PRN #10 tab.dis 01/14/18 [Rx] Citalopram Hydrobromide [Celexa] 10 mg PO DAILY #30 tablet 08/29/18 [Rx] Lisinopril 40 mg PO DAILY 08/29/18 [History] Acetaminophen 500 mg PO Q6HR PRN 09/06/18 [History] Fluticasone Propionate [Flonase Allergy Relief] 1 spray NASBOTH DAILY 09/06/18 [ History] Metoprolol Succinate [Toprol XL 100mg] 100 mg PO DAILY 09/06/18 [History] Past Medical History HEENT History: Reports: Impaired Vision, Other (See Below) Other HEENT History: Patient wears Glasses. Cardiovascular History: Reports: Arrhythmia, Cardiomyopathy, Heart Failure, Heart Murmur, High Cholesterol, Hypertension, Pulmonary Hypertension, Other ( See Below) Other Cardiovascular History: Complete/incomplete right bundle branch block; dyslipidemia. Grade 2 diastolic dysfunction, mild pulmonary hypertension, and moderate left atrial enlargement by echocardiogram on 01/17/18. 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: Menopause at age 49, one SAB in first trimester with required D&C, otherwise Full term without complications during pregnancies or deliveries Musculoskeletal History: Reports: Arthritis, Fracture, Osteoarthritis, Osteoporosis, Other (See Below) Other Musculoskeletal History: Right ankle bimalleolar fracture on 07/02/10, Anne's cyst of the right knee, right wrist fracture in about 2005 Neurological History: Reports: Vertigo, Other (See Below) Other Neuro History: Chronic vertigo Psychiatric History: Reports: Anxiety, Depression Endocrine/Metabolic History: Reports: Osteopenia, Osteoporosis, Other (See Below ) Other Endocrine/Metabolic History: Hyperglycemia. Hypoalbuminemia. Hematologic History: Reports: Anemia, Iron Deficiency Immunologic History: Reports: None Oncologic (Cancer) History: Reports: None Dermatologic History: Reports: None - Infectious Disease History Infectious Disease History: Reports: Chicken Pox, Measles, Mumps - Past Surgical History Head Surgeries/Procedures: Reports: None HEENT Surgical History: Reports: Adenoidectomy, Oral Surgery, Tonsillectomy, Other (See Below) Other HEENT Surgeries/Procedures: Tonsillectomy and adenoidectomy at age 18. Multiple teeth extractions. [place] teeth extraction 4 in her late 30s Cardiovascular Surgical History: Reports: None Respiratory Surgical History: Reports: None GI Surgical History: Reports: None Female Surgical History: Reports: D&C, Other (See Below) Other Female Surgeries/Procedures: D&C secondary to SAB Endocrine Surgical History: Reports: None Neurological Surgical History: Reports: None Musculoskeletal Surgical History: Reports: Joint Replacement, Knee Replacement, Other (See Below) Other Musculoskeletal Surgeries/Procedures:: Right TKA on 10/09/15 Oncologic Surgical History: Reports: None Dermatological Surgical History: Reports: None - Past Imaging History Past Imaging History: Reports: Cardiac Echo (01/17/18 with ejection fraction of 65 70 percent with otherwise findings as above.), CAT Scan (CT of the brain on with previous evaluation on 01/14/03), DEXA Scan (04/23/13), Mammogram (Last mammogram on 12/20/16), Stress Testing (Cardiolite stress test on 10/21/05 with ejection fraction of 72%), Venous Doppler (Right leg on 10/18/15 and 08/31/07) Social & Family History - Family History HEENT: Reports: None Cardiac: Reports: CAD, Cardiomyopathy, Heart Failure, Hypertension, TN, Other ( See Below) Other Cardiac Family History: Father with TN in his 60s with fatal CHF in his 80s, mother with hypertension Respiratory: Reports: None GI: Reports: Cholelithiasis, Colon Polyps, Other (See Below) Other GI Family History: Mother with cholelithiasis. Sister with colon cancer as below. : Reports: None OBGYN: Reports: None Musculoskeletal: Reports: None Neurological: Reports: CVA, Other (See Below) Other Neurological Family History: Mother with CVA in her 60s Psychiatric: Reports: None Endocrine/Metabolic: Reports: None Hematologic: Reports: None Immunologic: Reports: None Dermatologic: Reports: None Oncologic: Reports: Colon, Other (See Below) Other Oncologic Family History: Sister with colon cancer in her 70s - Tobacco Use Smoking Status *Q: Never Smoker - Caffeine Use Caffeine Use: Reports: Coffee, Soda, Tea Caffeine Use Comment: 3 cups of coffee per day, one glass of tea per month, and 1 soda per day - Living Situation & Occupation Living situation: Reports: (2010, 3 children), Alone 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) [facility] - Review of Systems Review Of Systems: See Below Constitutional: Reports: No Symptoms HEENT: Reports: No Symptoms Respiratory: Reports: No Symptoms Cardiovascular: Reports: No Symptoms Endocrine: Reports: No Symptoms GI/Abdominal: Reports: No Symptoms : Reports: No Symptoms Musculoskeletal: Reports: No Symptoms Skin: Reports: No Symptoms Neurological: Reports: No Symptoms Psychiatric: Reports: Anxiety Hematologic/Lymphatic: Reports: No Symptoms Immunologic: Reports: No Symptoms ED EXAM, GENERAL - Physical Exam Exam: See Below Exam Limited By: No Limitations General Appearance: Alert, WD/WN, No Apparent Distress Ears: Normal External Exam, Normal Canal, Hearing Grossly Normal, Normal TMs Ear Exam: Bilateral Ear: Auricle Normal, Canal Normal, TM normal Nose: Normal Inspection Throat/Mouth: Normal Inspection Head: Atraumatic, Normocephalic Neck: Normal Inspection, Supple, Non-Tender, Full Range of Motion Respiratory/Chest: No Respiratory Distress, Lungs Clear, Normal Breath Sounds, No Accessory Muscle Use, Chest Non-Tender Cardiovascular: Normal Peripheral Pulses, Regular Rate, Rhythm, No Edema, No Gallop, No JVD, No Murmur, No Rub GI/Abdominal: Normal Bowel Sounds, Soft, Non-Tender, No Organomegaly, No Distention, No Abnormal Bruit, No Mass (Female) Exam: Deferred Rectal (Female) Exam: Deferred Back Exam: Normal Inspection, Full Range of Motion, NT Extremities: Normal Inspection, Normal Range of Motion, Non-Tender, Normal Capillary Refill, No Pedal Edema Neurological: Alert, Oriented, CN II-XII Intact, Normal Cognition, Normal Gait, Normal Reflexes, No Motor/Sensory Deficits Psychiatric: Anxious, Depressed Mood Skin Exam: Warm, Dry, Intact, Normal Color, No Rash Lymphatic: No Adenopathy Course - Vital Signs Last Recorded V/S: Last Vital Signs Temp 97.9 F 09/06/18 07:00 Pulse 83 09/06/18 07:00 Resp 16 09/06/18 07:00 BP 121/79 09/06/18 08:36 Pulse Ox 98 09/06/18 07:00 - Orders/Labs/Meds Orders: Active Orders 24 hr Category Date Time Status Chest 2V [CR] Stat Exams 09/06/18 07:16 Taken Labs: Laboratory Tests 09/06/18 09/06/18 Range/Units 07:20 07:20 WBC 6.8 (4.0-10.2) K/uL RBC 4.97 (3.77-5.09) M/uL Hgb 14.9 (11.7-15.5) g/dL Hct 43.4 (34.0-46.0) % MCV 87.3 (84.0-98.0) fL MCH 30.0 (28.2-33.3) pg MCHC 34.3 (31.7-36.0) g/dL RDW 12.7 (11.2-14.1) % Plt Count 229 (150-350) K/uL Neut % (Auto) 61.0 (45.0-80.0) % Lymph % (Auto) 23.8 (10.0-50.0) % Pepin % (Auto) 10.8 (2.0-14.0) % Eos % (Auto) 3.7 (0.0-5.0) % Baso % (Auto) 0.7 (0.0-2.0) % Neut # (Auto) 4.12 (1.40-7.00) K/uL Lymph # (Auto) 1.61 (0.50-3.50) K/uL Pepin # (Auto) 0.73 (0.00-1.00) K/uL Eos # (Auto) 0.25 (0.00-0.50) K/uL Baso # (Auto) 0.05 (0.00-0.20) K/uL Sodium 136 (136-145) mmol/L Potassium 4.3 (3.5-5.1) mmol/L Chloride 99 (98-107) mmol/L Carbon Dioxide 28.2 (21.0-32.0) mmol/L BUN 28 H (7-18) mg/dL Creatinine 0.96 (0.51-1.17) mg/dL Est Cr Clr Drug Dosing 1.85 mL/min Estimated GFR (MDRD) 57 mL/min Glucose 111 H (74-106) mg/dL Calcium 9.5 (8.5-10.1) mg/dL Total Bilirubin 0.8 (0.2-1.0) mg/dL AST 14 L (15-37) U/L ALT 21 (12-78) U/L Alkaline Phosphatase 84 (46-116) IU/L NT-Pro-B Natriuret Pep 257 H (0-125) pg/mL Total Protein 7.2 (6.4-8.2) g/dL Albumin 3.8 (3.4-5.0) g/dL Meds: Medications Discontinued Medications Generic Name Dose Route Start Last Admin Trade Name Maria R PRN Reason Stop Dose Admin Lorazepam 1 mg 09/06/18 07:16 09/06/18 07:27 Ativan PO 09/06/18 07:17 1 mg ONETIME ONE Administration Departure - Departure Time of Disposition: 08:19 Disposition: Home, Self-Care 01 Clinical Impression: Anxiety as acute reaction to exceptional stress Instructions: Lorazepam tablets, Living With Anxiety Referrals: Tori Dhillon, [facility] [Primary Care Provider] - Forms: ED Department Discharge Additional Instructions: Follow-up with Tori in the clinic today at 2:00. Care Plan Goals: Patient was given Ativan felt much better will be sent home to follow with her primary later today - My Orders Last 24 Hours: My Active Orders 09/06/18 07:16 Chest 2V [CR] Stat - Assessment/Plan Last 24 Hours: My Active Orders 09/06/18 07:16 Chest 2V [CR] Stat
[2018-09-06 08:37] VITALS: BP 121/79
== END 2018-09-06 08:45 | disposition home or self-care (01) ==
LOC: LL.ED 06:57
DX: F41.1 Generalized anxiety disorder (principal); F43.0 Acute stress reaction; I11.0 Hypertensive heart disease with heart failure; I50.9 Heart failure, unspecified; Z79.82 Long term (current) use of aspirin; Z79.899 Other long term (current) drug therapy
CPT/HCPCS: 36415; 71046; 80053; 83880; 85025; 99284; A9270-GY

== ENCOUNTER 2019-07-26 11:47 | Observation (INO) | payer MEDICARE, BC ==
[2019-07-26] MEDS ORDERED: Famotidine 20 MG/2 ML SDV IVPUSH ONE (11:52)
--- NOTE | 2019-07-26 11:52 | EDM.PDOC ---
ED HPI GENERAL MEDICAL PROBLEM - General Chief Complaint: Cardiovascular Problem Stated Complaint: high blood pressure Time Seen by Provider: 07/26/19 11:51 Source of Information: Reports: Patient, Old Records ([facility] chart/EMR) History Limitations: Reports: No Limitations - History of Present Illness INITIAL COMMENTS - FREE TEXT/NARRATIVE: The patient was brought to the emergency room via private automobile by her daughter for evaluation of her blood pressure with elevated blood pressure of 190/104 at home about 15 minutes after she took her morning medications at 7 AM. Her blood pressures have been under somewhat moderate control during recent months with her Toprol XL increased about 6 months ago. She denies any other changes in medical therapy, medication noncompliance, excessive caffeine use, recent cough and cold medications, etc. The patient denies any chest pain/ pressure, heart flutter, dizziness, orthostasis, orthopnea, diaphoresis, paresthesias, recent decreased exercise tolerance, or any other anginal-type symptoms. No recent history of abdominal pain, heartburn, nausea, diarrhea, melena, gross hematochezia, or any food intolerance, including fatty foods, etc.. She denies any gross hematuria, colic, or other UTI symptoms. The patient also denies any recent fever, cough, wheezing, dyspnea, etc.. No history of recent headaches, visual changes, diplopia, change in mental status, or other change in neurological status. She denies any pain or discomfort. Onset: Today, Gradual Onset Date: 07/26/19 Onset Time: 07:15 Duration: Other (No pain) Quality: Reports: Same as Previous Episode Severity: Moderate (Hypertension) Improves with: Reports: None Worsens with: Reports: None Context: Reports: Other (As above). Denies: Sick Contact, Trauma Associated Symptoms: Denies: Confusion, Chest Pain, Cough, Diaphoresis, Fever/ Chills, Headaches, Loss of Appetite, Nausea/Vomiting, Seizure, Shortness of Breath, Weakness Treatments GAS FLOW REGULATOR: Reports: Other Medication(s) (Morning medications) - Related Data Allergies Allergy/AdvReac Type Severity Reaction Status Date / Time No Known Allergies Allergy Verified 07/26/19 12:20 Home Meds: Home Meds Metoprolol Succinate [Toprol XL 50mg] 50 mg PO QPM 10/17/15 [History] atorvaSTATin [Lipitor] 40 mg PO BEDTIME 10/17/15 [History] Aspirin [Ecotrin EC] 81 mg PO DAILY 05/14/16 [History] Ferrous Sulfate 325 mg PO DAILY #30 tablet 05/14/16 [Rx] Meclizine [Antivert] 25 mg PO Q6H PRN #30 tablet 05/14/16 [Rx] Cholecalciferol (Vitamin D3) [Vitamin D3] 2,000 unit PO DAILY #60 capsule [Rx] Magnesium Glycinate [Mag Glycinate] 100 mg PO BID #120 tablet 01/14/18 [Rx] Lisinopril 40 mg PO DAILY 08/29/18 [History] Acetaminophen 500 mg PO Q6HR PRN 09/06/18 [History] Fluticasone Propionate [Flonase Allergy Relief] 1 spray NASBOTH DAILY PRN [History] Metoprolol Succinate [Toprol XL 100mg] 100 mg PO DAILY 09/06/18 [History] LORazepam [Ativan] 1 tab PO BEDTIME 07/26/19 [History] hydroCHLOROthiazide [Hydrochlorothiazide] 1 tab PO DAILY 07/26/19 [History] Past Medical History HEENT History: Reports: Impaired Vision, Other (See Below). Denies: Allergic Rhinitis, Cataract, Glaucoma, Macular Degeneration, Otitis Media Other HEENT History: Patient wears Glasses. Cardiovascular History: Reports: Arrhythmia, Cardiomyopathy, Heart Failure, Heart Murmur, High Cholesterol, Hypertension, Pulmonary Hypertension, Other ( See Below). Denies: Afib, Angina, Blood Clots/VTE/DVT, Bypass, CAD, IA, PTCA, PVD, Stents, Syncope Other Cardiovascular History: Short AZ interval, repolarization changes, and intermittent Complete/incomplete right bundle branch block; dyslipidemia. Grade 2 diastolic dysfunction, mild pulmonary hypertension, and moderate left atrial enlargement by echocardiogram on 01/17/18. Respiratory History: Reports: Bronchitis, Recurrent, COPD, Intubation, Previous , Other (See Below). Denies: Asthma, Intubation, Difficult, PE, Pneumothorax, Sleep Apnea, TB Other Respiratory History: COPD by chest x-ray with no current medical therapy. Gastrointestinal History: Reports: Hiatal Hernia, Other (See Below). Denies: Celiac Disease, Cholelithiasis, Chronic Constipation, Chronic Diarrhea, Colon Polyp, Fatty Liver, Fecal Incontinence, Gastritis, GERD, GI Bleed, Hepatitis, Inflammatory Bowel Disease, Irritable Bowel Syndrome, Jaundice, Pancreatitis, PUD Other Gastrointestinal History: Small hiatal hernia by x-ray. Genitourinary History: Reports: None. Denies: Acute Renal Failure, Chronic Renal Insuffiency, Renal Calculus, STD, Urinary Incontinence, UTI, Recurrent OPENSTACK DEVELOPER History: Reports: , Spontaneous . Denies: Dysfunctional Uterine Bleeding, Endometriosis, Fibroids : 4 Para: 3 LMP (Approximate): Other (See Below) Other OPENSTACK DEVELOPER History: Menopause at age 49, one SAB in first trimester with required D&C, otherwise Full term without complications during pregnancies or deliveries Musculoskeletal History: Reports: Arthritis, Fracture, Osteoarthritis, Osteoporosis, Other (See Below). Denies: Back Pain, Chronic, Gout, Neck Pain, Chronic, RA, SLE Other Musculoskeletal History: Right ankle bimalleolar fracture on 07/02/10, Anne's cyst of the right knee, right wrist fracture in about 2005 Neurological History: Reports: Vertigo, Other (See Below). Denies: Cerebral Aneurysms, Concussion, CVA, Headaches, Chronic, Head Trauma, Migraines, MS, Neuropathy, Peripheral, Parkinson's, Seizure, TIA Other Neuro History: Chronic vertigo Psychiatric History: Reports: Anxiety, Depression. Denies: Abuse, Victim of, ADD, ADHD, Addiction, PTSD, Suicide Attempt, Suicidal Ideation Endocrine/Metabolic History: Reports: Osteopenia, Osteoporosis, Other (See Below ). Denies: Diabetes, Gestational, Diabetes, Type I, Diabetes, Type II, Diabetes Mellitus, Type 3c, Hypothyroidism, IDDM Other Endocrine/Metabolic History: Hyperglycemia. Hypoalbuminemia. Hematologic History: Reports: Anemia, Iron Deficiency. Denies: Blood Transfusion(s) Immunologic History: Reports: None. Denies: AIDS, HIV, SLE Oncologic (Cancer) History: Reports: None. Denies: Basal Cell Carcinoma, Bladder, Breast, Cervix, Colon, Hodgkin's Lymphoma, Leukemia, Lymphoma, Malignant Melanoma, Non-Hodgkin's Lymphoma, Ovarian, Squamous Cell Carcinoma, Uterine Dermatologic History: Reports: None. Denies: Eczema, Psoriasis - Infectious Disease History Infectious Disease History: Reports: Chicken Pox, Measles, Mumps. Denies: C- Difficile, Meningitis, Mononucleosis, MRSA, Rubella, Scarlet Fever, Shingles, TB , VRE - Past Surgical History Head Surgeries/Procedures: Reports: None HEENT Surgical History: Reports: Adenoidectomy, Oral Surgery, Tonsillectomy, Other (See Below). Denies: Cataract Surgery, Eye Surgery, Laser Surgery, LASIK , Myringotomy w Tube(s), Naso-Sinus Surgery Other HEENT Surgeries/Procedures: Tonsillectomy and adenoidectomy at age 18. Multiple teeth extractions. [place] teeth extraction 4 in her late 30s Cardiovascular Surgical History: Reports: None. Denies: AAA Repair, Varicose Respiratory Surgical History: Reports: None. Denies: Thoracentesis GI Surgical History: Reports: None. Denies: Appendectomy, Cholecystectomy, Colonoscopy, EGD, Hernia, Abdominal, Hernia, Inguinal, Hernia Repair/Other, Polypectomy Female Surgical History: Reports: D&C, Other (See Below). Denies: Section, Cervical Conization, Oophorectomy, Salpingo-Oophorectomy, Tubal Ligation Other Female Surgeries/Procedures: D&C secondary to SAB Endocrine Surgical History: Reports: None. Denies: Thyroid Biopsy Neurological Surgical History: Reports: None. Denies: C-Spine, Discectomy, Laminectomy, Lumbar Spine, Sacral Spine, Spinal Fusion, Thoracic Spine, Vertebroplasty Musculoskeletal Surgical History: Reports: Joint Replacement, Knee Replacement, Other (See Below). Denies: Arthroscopic Knee, Arthroscopic Procedure, Carpal Tunnel, Ganglion Cyst, ORIF, Shoulder Replacement Other Musculoskeletal Surgeries/Procedures:: Right TKA on 10/09/15 Oncologic Surgical History: Reports: None Dermatological Surgical History: Reports: None - Past Imaging History Past Imaging History: Reports: Cardiac Echo (01/17/18 with ejection fraction of 65 70 percent with otherwise findings as above.), CAT Scan (CT of the brain on with previous evaluation on 01/14/03), DEXA Scan (04/23/13), Mammogram (Last mammogram on 12/20/16), Stress Testing (Cardiolite stress test on 10/21/05 with ejection fraction of 72%), Venous Doppler (Right leg on 10/18/15 and 08/31/07) Social & Family History - Family History HEENT: Reports: None. Denies: Glaucoma, Macular Degeneration, Retinal Detachment Cardiac: Reports: CAD, Cardiomyopathy, Heart Failure, Hypertension, IA, Other ( See Below). Denies: Afib, AICD, Aneurysm, Arrhythmia, Blood Clots/VTE/DVT, High Cholesterol, PVD/COD, Syncope Other Cardiac Family History: Father with IA in his 60s with fatal CHF in his 80s, mother with hypertension Respiratory: Reports: None. Denies: Asthma, COPD, PE, Pneumothorax, Sleep Apnea GI: Reports: Cholelithiasis, Colon Polyps, Other (See Below). Denies: Celiac Disease, GERD, GI bleed, Inflammatory Bowel Disease, Irritable Bowel Syndrome, PUD Other GI Family History: Mother with cholelithiasis. Sister with colon cancer as below. : Reports: None. Denies: Renal Calculus, Renal Disease/Insufficiency OBGYN: Reports: None. Denies: Endometriosis, Recurrent Spontaneous Musculoskeletal: Reports: None. Denies: Arthritis, Osteoarthritis, RA, SLE Neurological: Reports: CVA, Other (See Below). Denies: Alzheimers Disease, Dementia, Migraines, MS, Parkinson's, Seizure, TIA Other Neurological Family History: Mother with CVA in her 60s Psychiatric: Reports: None. Denies: Abuse, Victim of, ADD, ADHD, Anxiety, Depression, Psych Hospitalization(s), PTSD, Suicide Attempt Endocrine/Metabolic: Reports: None. Denies: Diabetes, Gestational, Diabetes, Type I, Diabetes, type II, Diabetes Mellitus, Type 3c, Hypothyroidism, IDDM Hematologic: Reports: None. Denies: Anemia, SLE Immunologic: Reports: None. Denies: AIDS, HIV, SLE Dermatologic: Reports: None. Denies: Eczema, Psoriasis Oncologic: Reports: Colon, Other (See Below). Denies: Brain, Breast, Cervix, Hodgkin's Lymphoma, Leukemia, Lymphoma, Non-Hodgkin's Lymphoma, Ovarian, Skin, Uterine Other Oncologic Family History: Sister with colon cancer in her 70s - Tobacco Use Smoking Status *Q: Never Smoker Tobacco Use Within Last Twelve Months: No Used Tobacco, but Quit: No Smoking Cessation Information Provided To Patient: No Second Hand Smoke Exposure: No Second Hand Smoke Education Provided: No - Caffeine Use Caffeine Use: Reports: Coffee, Soda, Tea. Denies: Energy Drinks Caffeine Use Comment: 3 cups of coffee per day, one glass of tea per month, and 1 soda per week - Alcohol Use Alcohol Use History: No Days Per Week of Alcohol Use: 0 Number of Drinks Per Day: 0 Number of Drinks Per Day Comment: No previous DWIs, problems with alcohol abuse , etc. Total Drinks Per Week: 0 Alcohol Use in Last Twelve Months: No - Recreational Drug Use Recreational Drug Use: No Drug Use in Last 12 Months: No Recreational Drug Type: Denies: Amphetamines (Speed), Cocaine, Heroin, Inhalants (Glues, Solvents, Aerosols), LSD (Acid), Marijuana/Hashish, Methamphetamine, Morphine, Oxycodone - Living Situation & Occupation Living situation: Reports: (2010, 3 children), Alone Occupation: Employed ([employer]) ED ROS GENERAL - Review of Systems Review Of Systems: Comprehensive ROS is negative, except as noted in HPI. ED EXAM, GENERAL - Physical Exam Exam: See Below Exam Limited By: No Limitations General Appearance: Alert, WD/WN, No Apparent Distress, Anxious (Mild) Eye Exam: Bilateral Eye: EOMI, Normal Fundi, Normal Inspection (No nystagmus. Patient wearing glasses.), PERRL Ears: Normal External Exam, Normal Canal, Hearing Grossly Normal, Normal TMs Nose: Normal Inspection, Normal Mucosa, No Blood Throat/Mouth: Normal Inspection, Normal Lips, Normal Teeth (Occasional missing teeth), Normal Gums, Normal Oropharynx, Normal Voice, No Airway Compromise. No : Dysphagia, Perioral Cyanosis Head: Atraumatic, Normocephalic. No: Facial Swelling, Facial Tenderness, Sinus Tenderness Neck: Supple, Non-Tender, Full Range of Motion, Carotid Bruit (Mild bilateral carotid bruits). No: Lymphadenopathy (L), Lymphadenopathy (R), Thyromegaly Respiratory/Chest: No Respiratory Distress, Lungs Clear, Normal Breath Sounds, No Accessory Muscle Use, Chest Non-Tender. No: Pleural Rub, Retractions Cardiovascular: Normal Peripheral Pulses, Regular Rate, Rhythm, No Edema ( Dependent edema as below), No Gallop, No JVD, No Murmur, No Rub. No: Gallop/S3 , Gallop/S4, Friction Rub Peripheral Pulses: 2+: Radial (R), Femoral (L), Dorsalis Pedis (L), Dorsalis Pedis (R) GI/Abdominal: Normal Bowel Sounds, Soft, Non-Tender, No Organomegaly, No Distention, No Abnormal Bruit, No Mass, Other (obese). No: Guarding (Female) Exam: Deferred Rectal (Female) Exam: Deferred Back Exam: Normal Inspection, Full Range of Motion. No: CVA Tenderness (L), CVA Tenderness (R), Muscle Spasm Extremities: Normal Range of Motion, Non-Tender, Normal Capillary Refill, Pedal Edema (Trace bilateral pedal/pretibial edema). No: No Pedal Edema, Cyndee's Sign Neurological: Alert, Oriented, CN II-XII Intact, Normal Cognition, Normal Gait, Normal Reflexes (Negative Babinski's), No Motor/Sensory Deficits Psychiatric: Anxious (Mild). No: Depressed Mood Skin Exam: Warm, Dry, Intact, Normal Color, No Rash. No: Diaphoretic, Wound/ Incision Lymphatic: No Adenopathy EKG INTERPRETATION EKG Date: 07/26/19 Time: 11:58 Rhythm: NSR Rate (Beats/Min): 85 [place]: Normal (Left) P-Wave: Enlarged (Mild diffuse biphasic with change from previous poor R-wave progression to borderline pulmonary hypertension by EKG) QRS: Wide (0.10 seconds representing repolarization changes) ST-T: Normal (Stable T-wave inversion in leads 3 and V1) QT: Normal AZ/PQ Interval: 0.12 seconds representing a short AZ interval somewhat progressive since last EKG with no delta waves noted. Comparison: Change From Previous EKG (As above since 08/29/18.) EKG Interpretation Comments: 1. No acute ischemic changes 2. Short AZ interval 3. Left atrial enlargement 4. Pulmonary hypertension by EKG 5. Repolarization changes Course - Vital Signs Last Recorded V/S: Last Vital Signs Temp 36.6 C 07/26/19 12:50 Pulse 84 07/26/19 12:50 Resp 18 07/26/19 12:50 BP 176/86 H 07/26/19 12:50 Pulse Ox 99 07/26/19 12:50 Vital Signs - 24 hr 07/26/19 07/26/19 07/26/19 11:50 12:15 12:30 Temperature [ 36.8 C Temporal] Pulse, 94 77 84 Peripheral [ Pulse Oximetry] Respiratory 18 16 20 Rate Blood Pressure 210/114 H 170/83 H 161/76 H [Right Upper Arm] O2 Sat by Pulse 100 98 98 Oximetry 07/26/19 12:50 Temperature [ 36.6 C Temporal] Pulse, 84 Peripheral [ Pulse Oximetry] Respiratory 18 Rate Blood Pressure 176/86 H [Right Upper Arm] O2 Sat by Pulse 99 Oximetry - Orders/Labs/Meds Orders: Active Orders 24 hr Category Date Time Status Cardiac Monitoring [RC] . DIRECTED Care 07/26/19 11:52 Active EKG Documentation Completion [RC] ASDIRECTED Care 07/26/19 11:52 Active Oxygen Therapy, ED [RC] PRN Care 07/26/19 11:52 Active Peripheral IV Care [RC] . DIRECTED Care 07/26/19 11:52 Active Pulse Oximetry [RC] CONTINUOUS Care 07/26/19 11:52 Active Up With Assistance [RC] PFP Care 07/26/19 11:52 Active Vital Signs [RC] PFP Care 07/26/19 11:52 Active Nothing per Oral Now Diet [DIET] Diet 07/26/19 Breakfast Active Chest 1V Frontal [CR] Stat Exams 07/26/19 11:52 Taken Sodium Chloride 0.9% [Saline Flush] Med 07/26/19 11:52 Active 10 ml FLUSH ASDIRECTED PRN Obtain Past Medical Record [OM.PC] Urgent Oth 07/26/19 11:52 Active Peripheral IV Insertion Adult [OM.PC] Stat Oth 07/26/19 11:52 Ordered Resuscitation Status Stat Resus Stat 07/26/19 11:52 Ordered Medication Orders Sodium Chloride (Saline Flush) 10 ml FLUSH ASDIRECTED PRN PRN Reason: Keep Vein Open Last Admin: 07/26/19 12:13 Dose: 10 ml Admin: 07/26/19 12:08 Dose: 10 ml Labs: Laboratory Tests 07/26/19 07/26/19 07/26/19 Range/Units 11:55 11:55 11:55 WBC 7.6 (4.0-10.2) K/uL RBC 5.03 (3.77-5.09) M/uL Hgb 14.6 (11.7-15.5) g/dL Hct 43.7 (34.0-46.0) % MCV 86.9 (84.0-98.0) fL MCH 29.0 (28.2-33.3) pg MCHC 33.4 (31.7-36.0) g/dL RDW 13.0 (11.2-14.1) % Plt Count 232 (150-350) K/uL Neut % (Auto) 62.0 (45.0-80.0) % Lymph % (Auto) 27.1 (10.0-50.0) % [place] % (Auto) 8.4 (2.0-14.0) % Eos % (Auto) 2.1 (0.0-5.0) % Baso % (Auto) 0.4 (0.0-2.0) % Neut # (Auto) 4.72 (1.40-7.00) K/uL Lymph # (Auto) 2.06 (0.50-3.50) K/uL [place] # (Auto) 0.64 (0.00-1.00) K/uL Eos # (Auto) 0.16 (0.00-0.50) K/uL Baso # (Auto) 0.03 (0.00-0.20) K/uL PT 10.5 (9.5-12.0) SEC INR 1.0 APTT 24.6 (21.0-31.3) SEC Sodium 141 (136-145) mmol/L Potassium 4.0 (3.5-5.1) mmol/L Chloride 105 (98-107) mmol/L Carbon Dioxide 25.6 (21.0-32.0) mmol/L BUN 15 (7-18) mg/dL Creatinine 0.77 (0.51-1.17) mg/dL Est Cr Clr Drug Dosing TNP Estimated GFR (MDRD) > 60 mL/min Glucose 120 H (74-106) mg/dL Lactic Acid (0.4-2.0) mmol/L Uric Acid 4.4 (2.6-7.2) mg/dL Calcium 9.5 (8.5-10.1) mg/dL Magnesium 1.9 (1.8-2.4) mg/dL Total Bilirubin 0.4 (0.2-1.0) mg/dL AST 22 (15-37) U/L ALT 23 (12-78) U/L Alkaline Phosphatase 98 (46-116) IU/L Creatine Kinase 39 (26-308) U/L Creatine Kinase Index 1.8 (0.0-2.5) % CK-MB (CK-2) 0.70 (0.00-3.60) ng/mL Troponin I 0.000 (0.000-0.056) ng/mL NT-Pro-B Natriuret Pep 442 H (0-125) pg/mL Total Protein 7.3 (6.4-8.2) g/dL Albumin 3.7 (3.4-5.0) g/dL TSH, Ultra Sensitive 2.588 (0.358-3.740) mIU/mL 07/26/19 Range/Units 11:55 WBC (4.0-10.2) K/uL RBC (3.77-5.09) M/uL Hgb (11.7-15.5) g/dL Hct (34.0-46.0) % MCV (84.0-98.0) fL MCH (28.2-33.3) pg MCHC (31.7-36.0) g/dL RDW (11.2-14.1) % Plt Count (150-350) K/uL Neut % (Auto) (45.0-80.0) % Lymph % (Auto) (10.0-50.0) % [place] % (Auto) (2.0-14.0) % Eos % (Auto) (0.0-5.0) % Baso % (Auto) (0.0-2.0) % Neut # (Auto) (1.40-7.00) K/uL Lymph # (Auto) (0.50-3.50) K/uL [place] # (Auto) (0.00-1.00) K/uL Eos # (Auto) (0.00-0.50) K/uL Baso # (Auto) (0.00-0.20) K/uL PT (9.5-12.0) SEC INR APTT (21.0-31.3) SEC Sodium (136-145) mmol/L Potassium (3.5-5.1) mmol/L Chloride (98-107) mmol/L Carbon Dioxide (21.0-32.0) mmol/L BUN (7-18) mg/dL Creatinine (0.51-1.17) mg/dL Est Cr Clr Drug Dosing Estimated GFR (MDRD) mL/min Glucose (74-106) mg/dL Lactic Acid 1.7 (0.4-2.0) mmol/L Uric Acid (2.6-7.2) mg/dL Calcium (8.5-10.1) mg/dL Magnesium (1.8-2.4) mg/dL Total Bilirubin (0.2-1.0) mg/dL AST (15-37) U/L ALT (12-78) U/L Alkaline Phosphatase (46-116) IU/L Creatine Kinase (26-308) U/L Creatine Kinase Index (0.0-2.5) % CK-MB (CK-2) (0.00-3.60) ng/mL Troponin I (0.000-0.056) ng/mL NT-Pro-B Natriuret Pep (0-125) pg/mL Total Protein (6.4-8.2) g/dL Albumin (3.4-5.0) g/dL TSH, Ultra Sensitive (0.358-3.740) mIU/mL Meds: Medications Generic Name Dose Route Start Last Admin Trade Name Freq PRN Reason Stop Dose Admin Sodium Chloride 10 ml 07/26/19 11:52 07/26/19 12:57 Saline Flush FLUSH 10 ml ASDIRECTED PRN Administration Keep Vein Open Discontinued Medications Generic Name Dose Route Start Last Admin Trade Name Freq PRN Reason Stop Dose Admin Famotidine 40 mg 07/26/19 11:52 07/26/19 12:07 Pepcid IVPUSH 07/26/19 11:53 40 mg ONETIME ONE Administration Hydralazine HCl 10 mg 07/26/19 12:47 07/26/19 12:56 Apresoline IVPUSH 07/26/19 12:48 10 mg ONETIME ONE Administration Labetalol HCl 10 mg 07/26/19 12:09 07/26/19 12:14 Normodyne IVPUSH 07/26/19 12:10 10 mg ONETIME ONE Administration Protocol - Radiology Interpretation Free Text/Narrative:: potline monitor shows normal sinus rhythm with heart rate in the 80s to 90s with no ectopy or arrhythmia. Chest x-ray, portable, shows mild cardiomegaly with moderate COPD changes and mild aortic valve calcification, however no CHF, pulmonary infiltrates, pneumothorax, etc. Departure - Departure Time of Disposition: 13:10 Disposition: Refer to Observation Condition: Good Clinical Impression: CHF (congestive heart failure), COPD (chronic obstructive pulmonary disease), Mixed anxiety depressive disorder, Dyslipidemia, Hyperglycemia, Hypertension Referrals: Tori Dhillon, [facility]RAFTER [Primary Care Provider] - Forms: ED Department Discharge Care Plan Goals: See plan. Sepsis Event Note - Focused Exam Vital Signs: Vital Signs Temp Pulse Resp BP Pulse Ox 07/26/19 12:50 36.6 C 84 18 176/86 H 99 07/26/19 12:30 84 20 161/76 H 98 07/26/19 12:15 77 16 170/83 H 98 07/26/19 11:50 36.8 C 94 18 210/114 H 100 Date Exam was Performed: 07/26/19 Time Exam was Performed: 13:08 - Problem List & Annotations (1) Hypertension SNOMED Code(s): 81074586 Code(s): I10 - ESSENTIAL (PRIMARY) HYPERTENSION Status: Chronic Priority : Medium Annotation/Comment:: Hypertensive crisis without neurological deficits, symptoms, etc. prior to arrival. Note aggressive treatment in the emergency room including IV Normodyne and hydralazine. Various therapeutic options were discussed with the patient, who agrees to placement in observation status for further observation. Further medication adjustments during this hospitalization, including IV Lasix and spironolactone as below. Blood Pressures improved prior to discharge with neurological checks to be conducted with vitals. Colonoscopy recommended as a screen once her hypertension is under better control with no previous screening colonoscopy by her history. Qualifiers: Hypertension type: essential hypertension Qualified Code(s): I10 - Essential (primary) hypertension (2) CHF (congestive heart failure) SNOMED Code(s): 71914705 Code(s): I50.9 - HEART FAILURE, UNSPECIFIED Status: Acute Priority: High Onset Date: 01/11/18 Annotation/Comment:: Mild BNP elevation with no significant CHF by chest x-ray. Continue lisinopril therapy as before, although this will be changed to a p.m. regimen secondary to her recently uncontrolled hypertension as above. Initiate low-dose Lasix therapy on admission. Discontinue previous hydrochlorothiazide. In addition, initiate spironolactone therapy with previous history of grade 2 diastolic dysfunction in the past as above. Consider repeating echocardiogram on an outpatient basis. Further cardiac workup depending on her clinical course. Initiate standard rule out IA orders as a precaution. Cardiology consultation as needed. Qualifiers: Heart failure type: unspecified Heart failure chronicity: acute Qualified Code(s): I50.9 - Heart failure, unspecified (3) COPD (chronic obstructive pulmonary disease) SNOMED Code(s): 89922163 Code(s): J44.9 - CHRONIC OBSTRUCTIVE PULMONARY DISEASE, UNSPECIFIED Status : Chronic Priority: Medium Onset Date: 05/14/16 Annotation/Comment:: COPD by chest x-ray. Consider PFTs, however no recent fever or bronchitic-type symptoms. Her immunizations, including influenza booster will be updated prior to discharge. Qualifiers: COPD type: emphysema Emphysema type: panlobular Qualified Code(s): J43.1 - Panlobular emphysema (4) Dyslipidemia SNOMED Code(s): 808040524 Code(s): E78.5 - HYPERLIPIDEMIA, UNSPECIFIED Status: Chronic Priority: Medium Annotation/Comment:: Lipid panel in the a.m. Currently under therapy. Continue close follow-up by her regular provider. Weight loss in moderation advisable. (5) Hyperglycemia SNOMED Code(s): 80655297 Code(s): R73.9 - HYPERGLYCEMIA, UNSPECIFIED Status: Chronic Priority: Medium Onset Date: 05/14/16 Annotation/Comment:: Glycosylated hemoglobin in the a.m. Continue to observe closely for now. (6) Mixed anxiety depressive disorder SNOMED Code(s): 461497783 Code(s): F41.8 - OTHER SPECIFIED ANXIETY DISORDERS Status: Chronic Priority: High Annotation/Comment:: The patient stopped her Celexa therapy on her own after only a few weeks secondary to feeling better. She is currently using as needed Ativan. Various therapeutic options were discussed with the patient, who now agrees to reinitiate low-dose Celexa therapy with the patient' s son also previously in favor of this strategy. Close follow-up by regular provider. Emotional support provided. Medication compliance strongly encouraged. (7) Osteoarthritis SNOMED Code(s): 710097638 Code(s): M19.90 - UNSPECIFIED OSTEOARTHRITIS, UNSPECIFIED SITE Status: Chronic Priority: Medium Annotation/Comment:: Stable by history Qualifiers: Osteoarthritis location: multiple joints Osteoarthritis type: primary Qualified Code(s): M15.0 - Primary generalized (osteo)arthritis - Problem List Review Problem List Initiated/Reviewed/Updated: Yes - My Orders Last 24 Hours: My Active Orders 07/26/19 11:52 Cardiac Monitoring [RC] . DIRECTED EKG Documentation Completion [RC] ASDIRECTED Oxygen Therapy, ED [RC] PRN Peripheral IV Care [RC] . DIRECTED Pulse Oximetry [RC] CONTINUOUS Up With Assistance [RC] PFP Vital Signs [RC] PFP Chest 1V Frontal [CR] Stat Sodium Chloride 0.9% [Saline Flush] 10 ml FLUSH ASDIRECTED PRN Obtain Past Medical Record [OM.PC] Urgent Peripheral IV Insertion Adult [OM.PC] Stat Resuscitation Status Stat 07/26/19 Breakfast Nothing per Oral Now Diet [DIET] - Assessment/Plan Admission H&P: Please use this note as an admission H&P Last 24 Hours: My Active Orders 07/26/19 11:52 Cardiac Monitoring [RC] . DIRECTED EKG Documentation Completion [RC] ASDIRECTED Oxygen Therapy, ED [RC] PRN Peripheral IV Care [RC] . DIRECTED Pulse Oximetry [RC] CONTINUOUS Up With Assistance [RC] PFP Vital Signs [RC] PFP Chest 1V Frontal [CR] Stat Sodium Chloride 0.9% [Saline Flush] 10 ml FLUSH ASDIRECTED PRN Obtain Past Medical Record [OM.PC] Urgent Peripheral IV Insertion Adult [OM.PC] Stat Resuscitation Status Stat 07/26/19 Breakfast Nothing per Oral Now Diet [DIET] Assessment:: As above Plan: As above. Extensive precautions were given to the patient, who is in agreement with the treatment plan. The patient's condition is stable enough for observation status and general supervision.
[2019-07-26] MEDS: Sodium Chloride 0.9% 10 ML Syringe FLUSH PRN ×4 (12:08→14:26)
[2019-07-26] MEDS ORDERED: Labetalol 20 MG/4 ML Syringe IVPUSH ONE (12:09)
[2019-07-26 12:32] LABS: CHLORIDE,CL 105 mmol/L (98-107); SODIUM,NA 141 mmol/L (136-145)
[2019-07-26] MEDS ORDERED: hydrALAZINE 20 MG/ML SDV IVPUSH ONE (12:47)
[2019-07-26] MEDS ORDERED: Acetaminophen 500 MG Tab PO PRN (13:14)
[2019-07-26] MEDS ORDERED: Fluticasone Propionate Nasal Spray 16 GM Bottle NASBOTH PRN (13:14)
[2019-07-26] MEDS ORDERED: Sodium Chloride 0.9% 10 ML Syringe FLUSH PRN (13:15)
[2019-07-26] MEDS ORDERED: Temazepam 15 MG Cap PO PRN (13:15)
[2019-07-26] MEDS ORDERED: Meclizine 25 MG Tab PO PRN (13:30)
[2019-07-26] MEDS ORDERED: Enoxaparin 30 MG/0.3 ML Syringe SUBCUT SCH (13:30)
[2019-07-26] MEDS: Potassium Chloride 20 MEQ Tab.ER PO SCH ×2 (14:25→17:49)
[2019-07-26] MEDS: Furosemide 40 MG/4 ML VIAL IVPUSH SCH (14:26)
[2019-07-26] MEDS: Spironolactone 25 MG Tab PO SCH (17:49)
[2019-07-26] MEDS ORDERED: Pneumococcal 13-Valent Conjugate Vaccine 0.5 ML Syringe IM ONE (18:00)
[2019-07-26] MEDS ORDERED: Lisinopril 20 MG Tab PO SCH (18:00)
[2019-07-26] MEDS ORDERED: Metoprolol Succinate 50 MG Tab.ER PO SCH (18:00)
[2019-07-26] MEDS ORDERED: atorvaSTATin 40 MG Tab PO SCH (20:00)
[2019-07-27] MEDS: Furosemide 40 MG/4 ML VIAL IVPUSH SCH (00:50)
[2019-07-27] MEDS: Sodium Chloride 0.9% 10 ML Syringe FLUSH PRN (00:54)
[2019-07-27 07:27] LABS: HEMOGLOBIN A1C 5.2 % (4.3-5.7)
[2019-07-27] MEDS: Spironolactone 25 MG Tab PO SCH (07:37)
[2019-07-27] MEDS: Potassium Chloride 20 MEQ Tab.ER PO SCH (07:37)
[2019-07-27 07:38] VITALS: BP 125/80; PULSE 95
[2019-07-27 07:48] LABS: CHLORIDE,CL 105 mmol/L (98-107); SODIUM,NA 145 mmol/L (136-145)
[2019-07-27] MEDS ORDERED: Ferrous Sulfate 325 MG Tab PO SCH (08:00)
[2019-07-27] MEDS ORDERED: Aspirin 81 MG Tab.EC PO SCH (08:00)
[2019-07-27] MEDS ORDERED: Metoprolol Succinate 50 MG Tab.ER PO SCH (08:00)
[2019-07-27] MEDS ORDERED: Citalopram 20 MG Tab PO SCH (08:00)
--- NOTE | 2019-07-27 08:41 | PCM.DCSUM1 ---
Discharge Summary - Hospital Course HPI Initial Comments: See emergency room note/admission H&P Brief History: See emergency room note/admission H&P Diagnosis: Stroke: No Modified Four States Scale: No Symptoms at All Modified Four States Scale Score: 0 - Discharge Data Discharge Date: 07/27/19 Discharge Disposition: Home, Self-Care 01 Condition: Good - Referral to Home Health Primary Care Physician: Tori Dhillon NP - Discharge Diagnosis/Problem(s) (1) Hypertension SNOMED Code(s): 50636806 ICD Code: I10 - ESSENTIAL (PRIMARY) HYPERTENSION Status: Chronic Priority : Medium Current Visit: No Problem Details: Blood pressure is much improved with change in her medical regimen during this hospitalization, including initiation of IV Lasix, oral potassium, and spironolactone. Hypertensive crisis at time of arrival in the emergency room without neurological deficits, symptoms , etc. prior to arrival. Note aggressive treatment in the emergency room including IV Normodyne and IV hydralazine. Various therapeutic options were discussed with the patient, who agreed to placement in observation status for further observation. Further medication adjustments during this hospitalization , including IV Lasix and spironolactone as above. Blood Pressures improved prior to discharge from the emergency room with stable neurological checks with vitals during this hospitalization. Colonoscopy recommended as a screen once her hypertension is under better control with no previous screening colonoscopy by her history. Qualifiers: Hypertension type: essential hypertension Qualified Code(s): I10 - Essential (primary) hypertension (2) CHF (congestive heart failure) SNOMED Code(s): 17619829 ICD Code: I50.9 - HEART FAILURE, UNSPECIFIED Status: Acute Priority: High Current Visit: No Onset Date: 01/11/18 Problem Details: Mild progressive BNP elevation prior to discharge with IV Lasix therapy likely secondary to renal effect with patient losing 8 pounds during this hospitalization, however renal function is still normal. Note no evidence of significant CHF by chest x-ray on admission or by clinical exam. Continue lisinopril therapy as before, although this was changed to a p.m. regimen secondary to her recently uncontrolled hypertension as above. Initiate low-dose oral Lasix therapy at discharge with discontinuation of previous hydrochlorothiazide Initiated spironolactone therapy with previous history of grade 2 diastolic dysfunction in the past as per emergency room note. The patient wishes to have her repeat echocardiogram scheduled through her regular provider on an outpatient basis. Further cardiac workup depending on her clinical course. Note negative rule out for acute CT. Cardiology consultation as needed. The patient agrees to weigh herself on a daily basis and notify her provider, if dependent edema reoccurs and/or she has a 5 pound weight gain. No chest pain or anginal complaints during this hospitalization. Only low-dose potassium chloride supplementation was prescribed at discharge secondary to her lisinopril and spironolactone therapy. Qualifiers: Heart failure type: diastolic Heart failure chronicity: acute Qualified Code(s): I50.31 - Acute diastolic (congestive) heart failure (3) COPD (chronic obstructive pulmonary disease) SNOMED Code(s): 46619460 ICD Code: J44.9 - CHRONIC OBSTRUCTIVE PULMONARY DISEASE, UNSPECIFIED Status : Chronic Priority: Medium Current Visit: Yes Onset Date: 05/14/16 Problem Details: COPD by chest x-ray. Consider PFTs, however no recent fever or bronchitic-type symptoms. Her immunizations, including influenza booster was updated during this hospitalization. Qualifiers: COPD type: emphysema Emphysema type: panlobular Qualified Code(s): J43.1 - Panlobular emphysema (4) Dyslipidemia SNOMED Code(s): 586569543 ICD Code: E78.5 - HYPERLIPIDEMIA, UNSPECIFIED Status: Chronic Priority: Medium Current Visit: Yes Problem Details: Lipid panel still somewhat elevated on 07/27, however the patient now states that she has been somewhat noncompliant with her Lipitor therapy. Medication compliance was once again strongly encouraged. Consider repeating lipid panel in about 3 months. Continue close follow-up by her regular provider. Weight loss in moderation advisable with dietary information, including fluid restriction provided at discharge. (5) Hyperglycemia SNOMED Code(s): 51979191 ICD Code: R73.9 - HYPERGLYCEMIA, UNSPECIFIED Status: Chronic Priority: Medium Current Visit: Yes Onset Date: 05/14/16 Problem Details: Glycosylated hemoglobin this morning on 07/27 was normal at 5.2%. in the a.m. Continue heart healthy diet as above. (6) Mixed anxiety depressive disorder SNOMED Code(s): 535018025 ICD Code: F41.8 - OTHER SPECIFIED ANXIETY DISORDERS Status: Chronic Priority: High Current Visit: Yes Problem Details: The patient stopped her Celexa therapy on her own after only a few weeks secondary to feeling better. She is currently using as needed Ativan with the patient advised to limit the use of this medication. Various therapeutic options were discussed with the patient on admission, who now agreed to reinitiate low-dose Celexa therapy with the patient's son also previously in favor of this strategy. Note that her daughter was also in agreement with this plan on 07/26. Close follow-up by regular provider. Emotional support provided. Medication compliance is once again strongly encouraged. 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 as above. (9) Shortened DC interval SNOMED Code(s): 78880340 ICD Code: R94.31 - ABNORMAL ELECTROCARDIOGRAM [ECG] [EKG] Status: Chronic Priority: Medium Current Visit: Yes Problem Details: Stable as above. - Patient Summary/Data Operative Procedure(s) Performed: None Complications: None Consults: None Labs Pending at D/C: None Recommended Follow-up Testing/Procedures: As per discharge instructions Planned Operative Procedure(s) after DC: As per discharge instructions Hospital Course: The patient was placed in observation status on telemetry as above with negative workup for acute CT. Note multiple medication changes for her hypertension with borderline hypertensive crisis at time of arrival in our emergency room. Patient responded extremely well to the above multiple medication changes. Close follow-up by regular provider as per discharge instructions. - Patient Instructions Diet: Fluid Restriction Diet, Other: Heart healthy, diverticulosis Fluid Restriction: 2000 mL Activity: As Tolerated Driving: May Drive Today Showering/Bathing: May Shower Notify Provider of: Increased Pain, Nausea and/or Vomiting Other/Special Instructions: 1. Followup with your regular provider in 7 days as directed for reevaluation and recommended repeat CBC, basic metabolic panel, BNP, CK, CK-MB, troponin I, magnesium level, uric acid level, EKG, and chest x- ray. Bring these discharge instructions with you to that visit. 2. Compliance with all medical therapy as discussed. 3. Strict compliance with diet as discussed with daily weights and regular provider to be notified LIZETH, if significant dependent edema recurs and/or have more than a 5 pound weight gain. 4. Consider scheduling repeat echocardiogram by your regular provider at follow-up. 5. Consider screening colonoscopy by your regular provider once your blood pressures, etc. are under good control. 6. Immediately after this visit verify that your cellular telephone's voicemail has been activated and is empty. Also verify that your home telephone's answering machine is operating properly and has space to receive messages. Note that it is sometimes necessary for us to be able to contact you at a later date to discuss your medical care. 7. Discuss multiple medication changes with your regular provider at follow-up visit, including reinitiation of your Celexa, etc. 8. Please remember that we are ALWAYS here for you and want to answer any questions you may have. Feel free to call the hospital any time and we call you back LIZETH. 9. Home blood pressure and pulse checks 2 times per day, i.e., before your morning and afternoon medications, with records to be brought to all follow-up visits with your regular provider - Discharge Plan *PRESCRIPTION DRUG MONITORING PROGRAM REVIEWED*: Not Applicable *COPY OF PRESCRIPTION DRUG MONITORING REPORT IN PATIENT ALANIS: Not Applicable Prescriptions/Med Rec: Citalopram [Citalopram HBr] 10 mg PO DAILY #30 tablet Furosemide [Lasix] 20 mg PO DAILY #14 tab Lisinopril 40 mg PO QPM #1 tablet Potassium Chloride 10 meq PO DAILY #14 capsule.er Spironolactone [Aldactone] 25 mg PO BID #20 tablet Home Medications: Home Meds Metoprolol Succinate [Toprol XL 50mg] 50 mg PO QPM 10/17/15 [History] atorvaSTATin [Lipitor] 40 mg PO BEDTIME 10/17/15 [History] Aspirin [Ecotrin EC] 81 mg PO QAM 05/14/16 [History] Ferrous Sulfate 325 mg PO DAILY #30 tablet 05/14/16 [Rx] Meclizine [Antivert] 25 mg PO Q6H PRN #30 tablet 05/14/16 [Rx] Cholecalciferol (Vitamin D3) [Vitamin D3] 2,000 unit PO DAILY #60 capsule [Rx] Magnesium Glycinate [Mag Glycinate] 100 mg PO BID #120 tablet 01/14/18 [Rx] Acetaminophen 500 mg PO Q6HR PRN 09/06/18 [History] Fluticasone Propionate [Flonase Allergy Relief] 1 spray NASBOTH DAILY PRN [History] Metoprolol Succinate [Toprol XL 100mg] 100 mg PO DAILY 09/06/18 [History] LORazepam [Ativan] 1 tab PO BEDTIME 07/26/19 [History] Citalopram [Citalopram HBr] 10 mg PO DAILY #30 tablet 07/27/19 [Rx] Furosemide [Lasix] 20 mg PO DAILY #14 tab 07/27/19 [Rx] Lisinopril 40 mg PO QPM #1 tablet 07/27/19 [Rx] Potassium Chloride 10 meq PO DAILY #14 capsule.er 07/27/19 [Rx] Spironolactone [Aldactone] 25 mg PO BID #20 tablet 07/27/19 [Rx] Oxygen Therapy Mode: Room Air Patient Handouts: Potassium chloride tablets, extended-release tablets or capsules, Furosemide injection, Heart-Healthy Eating Plan, [id number], Enoxaparin injection, Spironolactone tablets, Hypertension, [id number], Heart Failure, [id number] Forms: ED Department Discharge Referrals: Tori Dhillon, UTILIZATION REVIEW RN [Primary Care Provider] - - Discharge Summary/Plan Comment DC Time >30 min.: Yes (Coordination of care ) Discharge Summary/Plan Comment: As above. Extensive precautions were given to the patient, who is in agreement with the treatment plan. See Patient Instructions for further treatment and plan. - General Info Date of Service: 07/27/19 Admission Dx/Problem (Free Text: 1. Hypertensive crisis 2. CHF Functional Status: Reports: Pain Controlled, Tolerating Diet, Ambulating, Urinating. Denies: New Symptoms, Incentive Spirometry Numeric/FACES Score: 0 - Review of Systems General: Reports: No Symptoms. Denies: Fever, Weakness, Fatigue, Malaise, Chills, Night Sweats, Appetite (Appetite good) HEENT: Reports: Glasses. Denies: Dysphasia, Ear Pain, Eye Pain, Headaches, Post Nasal Drip, Sinus Congestion, Sore Throat, Rhinitis, Visual Changes Pulmonary: Reports: No Symptoms. Denies: Shortness of Breath, Pleuritic Chest Pain, Cough, Sputum, Wheezing Cardiovascular: Reports: No Symptoms. Denies: Chest Pain, Palpitations, Dyspnea on Exertion, Orthopnea, Edema (Resolved), Lightheadedness Gastrointestinal: Reports: No Symptoms, Other (No bowel movement since admission ). Denies: Abdominal Pain, Constipation, Decreased Appetite, Diarrhea, Hematochezia, Melena, Nausea, Vomiting Genitourinary: Reports: No Symptoms. Denies: Dysuria, Frequency, Burning, Pain , Urgency, Hematuria, Retention, Flank Pain Musculoskeletal: Reports: No Symptoms. Denies: Neck Pain, Shoulder Pain, Arm Pain, Back Pain, Leg Pain Skin: Reports: No Symptoms. Denies: Diaphoresis, Bruising Neurological: Reports: No Symptoms. Denies: Confusion, Dizziness, Headache, Numbness, Paresthesia, Tingling, Weakness Psychiatric: Reports: Depression (Mild), Anxiety (Mildimproved). Denies: Confusion, Agitation, Cravings, Hallucinations - Patient Data Vitals - Most Recent: Last Vital Signs Temp 36.4 C 07/27/19 07:56 Pulse 95 07/27/19 07:56 Resp 16 07/27/19 07:56 BP 125/80 07/27/19 07:56 Pulse Ox 97 07/27/19 07:56 Vital Signs - 24 hr 07/26/19 07/26/19 07/26/19 11:50 12:15 12:30 Temperature [ 36.8 C Temporal] Pulse, Peripheral Pulse, 94 77 84 Peripheral [ Pulse Oximetry] Respiratory 18 16 20 Rate Blood Pressure Blood Pressure [Left Upper Arm ] Blood Pressure 210/114 H 170/83 H 161/76 H [Right Upper Arm] O2 Sat by Pulse 100 98 98 Oximetry 07/26/19 07/26/19 07/26/19 12:50 13:15 15:37 Temperature [ 36.6 C 36.5 C 36.3 C Temporal] Pulse, Peripheral Pulse, 84 85 96 Peripheral [ Pulse Oximetry] Respiratory 18 16 18 Rate Blood Pressure Blood Pressure 176/79 H 142/82 H [Left Upper Arm ] Blood Pressure 176/86 H [Right Upper Arm] O2 Sat by Pulse 99 99 100 Oximetry 07/26/19 07/26/19 07/26/19 17:39 17:50 19:35 Temperature [ 36.9 C 37.1 C Temporal] Pulse, 98 Peripheral Pulse, 98 95 Peripheral [ Pulse Oximetry] Respiratory 16 18 Rate Blood Pressure 151/84 H Blood Pressure 151/84 H 123/88 [Left Upper Arm ] Blood Pressure [Right Upper Arm] O2 Sat by Pulse 95 100 Oximetry 07/27/19 07/27/19 07/27/19 00:00 04:00 07:11 Temperature [ 36.8 C 36.6 C 36.8 C Temporal] Pulse, Peripheral Pulse, 82 76 93 Peripheral [ Pulse Oximetry] Respiratory 16 16 16 Rate Blood Pressure Blood Pressure 141/81 H 130/74 142/88 H [Left Upper Arm ] Blood Pressure [Right Upper Arm] O2 Sat by Pulse 96 95 96 Oximetry 07/27/19 07/27/19 07:38 07:56 Temperature [ 36.4 C Temporal] Pulse, 95 Peripheral Pulse, 95 Peripheral [ Pulse Oximetry] Respiratory 16 Rate Blood Pressure 125/80 Blood Pressure 125/80 [Left Upper Arm ] Blood Pressure [Right Upper Arm] O2 Sat by Pulse 97 Oximetry Weight - Most Recent: 72.847 kg I&O - Last 24 hours: Intake & Output 07/26/19 07/27/19 07/27/19 22:59 06:59 14:59 Intake Total 240 0 Output Total 1900 700 250 Balance -1660 -700 -250 Imaging Impressions - Last 24 hrs: manager monitoring shows normal sinus rhythm with heart rate in the 80s to 90s with no ectopy or arrhythmia. Chest x-ray, portable, on 07/26 shows mild cardiomegaly with moderate COPD changes and mild aortic valve calcification, however no CHF, pulmonary infiltrates, pneumothorax, etc. Lab Results - Last 24 hrs: Laboratory Results - last 24 hr 07/26/19 07/26/19 07/26/19 Range/Units 11:55 11:55 11:55 WBC 7.6 (4.0-10.2) K/uL RBC 5.03 (3.77-5.09) M/uL Hgb 14.6 (11.7-15.5) g/dL Hct 43.7 (34.0-46.0) % MCV 86.9 (84.0-98.0) fL MCH 29.0 (28.2-33.3) pg MCHC 33.4 (31.7-36.0) g/dL RDW 13.0 (11.2-14.1) % Plt Count 232 (150-350) K/uL Neut % (Auto) 62.0 (45.0-80.0) % Lymph % (Auto) 27.1 (10.0-50.0) % [place] % (Auto) 8.4 (2.0-14.0) % Eos % (Auto) 2.1 (0.0-5.0) % Baso % (Auto) 0.4 (0.0-2.0) % Neut # (Auto) 4.72 (1.40-7.00) K/uL Lymph # (Auto) 2.06 (0.50-3.50) K/uL [place] # (Auto) 0.64 (0.00-1.00) K/uL Eos # (Auto) 0.16 (0.00-0.50) K/uL Baso # (Auto) 0.03 (0.00-0.20) K/uL PT 10.5 (9.5-12.0) SEC INR 1.0 APTT 24.6 (21.0-31.3) SEC Sodium 141 (136-145) mmol/L Potassium 4.0 (3.5-5.1) mmol/L Chloride 105 (98-107) mmol/L Carbon Dioxide 25.6 (21.0-32.0) mmol/L BUN 15 (7-18) mg/dL Creatinine 0.77 (0.51-1.17) mg/dL Est Cr Clr Drug Dosing TNP Estimated GFR (MDRD) > 60 mL/min Glucose 120 H (74-106) mg/dL Hemoglobin A1c (4.3-5.7) % Lactic Acid (0.4-2.0) mmol/L Uric Acid 4.4 (2.6-7.2) mg/dL Calcium 9.5 (8.5-10.1) mg/dL Magnesium 1.9 (1.8-2.4) mg/dL Total Bilirubin 0.4 (0.2-1.0) mg/dL AST 22 (15-37) U/L ALT 23 (12-78) U/L Alkaline Phosphatase 98 (46-116) IU/L Creatine Kinase 39 (26-308) U/L Creatine Kinase Index 1.8 (0.0-2.5) % CK-MB (CK-2) 0.70 (0.00-3.60) ng/mL Troponin I 0.000 (0.000-0.056) ng/mL NT-Pro-B Natriuret Pep 442 H (0-125) pg/mL Total Protein 7.3 (6.4-8.2) g/dL Albumin 3.7 (3.4-5.0) g/dL Triglycerides (30-150) mg/dL Cholesterol (100-200) mg/dL LDL Cholesterol, Calc (0-100) mg/dL HDL Cholesterol (40-60) mg/dL TSH, Ultra Sensitive 2.588 (0.358-3.740) mIU/mL 07/26/19 07/26/19 07/27/19 Range/Units 11:55 19:33 07:05 WBC 9.3 (4.0-10.2) K/uL RBC 5.39 H (3.77-5.09) M/uL Hgb 15.6 H (11.7-15.5) g/dL Hct 46.4 H (34.0-46.0) % MCV 86.1 (84.0-98.0) fL MCH 28.9 (28.2-33.3) pg MCHC 33.6 (31.7-36.0) g/dL RDW 13.3 (11.2-14.1) % Plt Count 239 (150-350) K/uL Neut % (Auto) 75.5 (45.0-80.0) % Lymph % (Auto) 13.2 (10.0-50.0) % [place] % (Auto) 9.5 (2.0-14.0) % Eos % (Auto) 1.2 (0.0-5.0) % Baso % (Auto) 0.6 (0.0-2.0) % Neut # (Auto) 7.05 H (1.40-7.00) K/uL Lymph # (Auto) 1.23 (0.50-3.50) K/uL [place] # (Auto) 0.89 (0.00-1.00) K/uL Eos # (Auto) 0.11 (0.00-0.50) K/uL Baso # (Auto) 0.06 (0.00-0.20) K/uL PT (9.5-12.0) SEC INR APTT (21.0-31.3) SEC Sodium (136-145) mmol/L Potassium (3.5-5.1) mmol/L Chloride (98-107) mmol/L Carbon Dioxide (21.0-32.0) mmol/L BUN (7-18) mg/dL Creatinine (0.51-1.17) mg/dL Est Cr Clr Drug Dosing Estimated GFR (MDRD) mL/min Glucose (74-106) mg/dL Hemoglobin A1c (4.3-5.7) % Lactic Acid 1.7 (0.4-2.0) mmol/L Uric Acid (2.6-7.2) mg/dL Calcium (8.5-10.1) mg/dL Magnesium (1.8-2.4) mg/dL Total Bilirubin (0.2-1.0) mg/dL AST (15-37) U/L ALT (12-78) U/L Alkaline Phosphatase (46-116) IU/L Creatine Kinase 34 (26-308) U/L Creatine Kinase Index 2.4 (0.0-2.5) % CK-MB (CK-2) 0.80 (0.00-3.60) ng/mL Troponin I 0.000 (0.000-0.056) ng/mL NT-Pro-B Natriuret Pep (0-125) pg/mL Total Protein (6.4-8.2) g/dL Albumin (3.4-5.0) g/dL Triglycerides (30-150) mg/dL Cholesterol (100-200) mg/dL LDL Cholesterol, Calc (0-100) mg/dL HDL Cholesterol (40-60) mg/dL TSH, Ultra Sensitive (0.358-3.740) mIU/mL 07/27/19 07/27/19 Range/Units 07:05 07:05 WBC (4.0-10.2) K/uL RBC (3.77-5.09) M/uL Hgb (11.7-15.5) g/dL Hct (34.0-46.0) % MCV (84.0-98.0) fL MCH (28.2-33.3) pg MCHC (31.7-36.0) g/dL RDW (11.2-14.1) % Plt Count (150-350) K/uL Neut % (Auto) (45.0-80.0) % Lymph % (Auto) (10.0-50.0) % [place] % (Auto) (2.0-14.0) % Eos % (Auto) (0.0-5.0) % Baso % (Auto) (0.0-2.0) % Neut # (Auto) (1.40-7.00) K/uL Lymph # (Auto) (0.50-3.50) K/uL [place] # (Auto) (0.00-1.00) K/uL Eos # (Auto) (0.00-0.50) K/uL Baso # (Auto) (0.00-0.20) K/uL PT (9.5-12.0) SEC INR APTT (21.0-31.3) SEC Sodium 145 (136-145) mmol/L Potassium 4.1 (3.5-5.1) mmol/L Chloride 105 (98-107) mmol/L Carbon Dioxide 25.2 (21.0-32.0) mmol/L BUN 16 (7-18) mg/dL Creatinine 0.88 (0.51-1.17) mg/dL Est Cr Clr Drug Dosing 44.29 Estimated GFR (MDRD) > 60 mL/min Glucose 116 H (74-106) mg/dL Hemoglobin A1c 5.2 (4.3-5.7) % Lactic Acid (0.4-2.0) mmol/L Uric Acid (2.6-7.2) mg/dL Calcium 10.0 (8.5-10.1) mg/dL Magnesium (1.8-2.4) mg/dL Total Bilirubin 0.5 (0.2-1.0) mg/dL AST 19 (15-37) U/L ALT 22 (12-78) U/L Alkaline Phosphatase 99 (46-116) IU/L Creatine Kinase 36 (26-308) U/L Creatine Kinase Index 1.7 (0.0-2.5) % CK-MB (CK-2) 0.60 (0.00-3.60) ng/mL Troponin I 0.000 (0.000-0.056) ng/mL NT-Pro-B Natriuret Pep 567 H (0-125) pg/mL Total Protein 7.8 (6.4-8.2) g/dL Albumin 3.8 (3.4-5.0) g/dL Triglycerides 80 (30-150) mg/dL Cholesterol 220 H (100-200) mg/dL LDL Cholesterol, Calc 133 H (0-100) mg/dL HDL Cholesterol 71 H (40-60) mg/dL TSH, Ultra Sensitive (0.358-3.740) mIU/mL Laboratory Tests 07/26/19 07/26/19 07/26/19 Range/Units 11:55 11:55 11:55 WBC 7.6 (4.0-10.2) K/uL RBC 5.03 (3.77-5.09) M/uL Hgb 14.6 (11.7-15.5) g/dL Hct 43.7 (34.0-46.0) % MCV 86.9 (84.0-98.0) fL MCH 29.0 (28.2-33.3) pg MCHC 33.4 (31.7-36.0) g/dL RDW 13.0 (11.2-14.1) % Plt Count 232 (150-350) K/uL Neut % (Auto) 62.0 (45.0-80.0) % Lymph % (Auto) 27.1 (10.0-50.0) % [place] % (Auto) 8.4 (2.0-14.0) % Eos % (Auto) 2.1 (0.0-5.0) % Baso % (Auto) 0.4 (0.0-2.0) % Neut # (Auto) 4.72 (1.40-7.00) K/uL Lymph # (Auto) 2.06 (0.50-3.50) K/uL [place] # (Auto) 0.64 (0.00-1.00) K/uL Eos # (Auto) 0.16 (0.00-0.50) K/uL Baso # (Auto) 0.03 (0.00-0.20) K/uL PT 10.5 (9.5-12.0) SEC INR 1.0 APTT 24.6 (21.0-31.3) SEC Sodium 141 (136-145) mmol/L Potassium 4.0 (3.5-5.1) mmol/L Chloride 105 (98-107) mmol/L Carbon Dioxide 25.6 (21.0-32.0) mmol/L BUN 15 (7-18) mg/dL Creatinine 0.77 (0.51-1.17) mg/dL Est Cr Clr Drug Dosing TNP Estimated GFR (MDRD) > 60 mL/min Glucose 120 H (74-106) mg/dL Hemoglobin A1c (4.3-5.7) % Lactic Acid (0.4-2.0) mmol/L Uric Acid 4.4 (2.6-7.2) mg/dL Calcium 9.5 (8.5-10.1) mg/dL Magnesium 1.9 (1.8-2.4) mg/dL Total Bilirubin 0.4 (0.2-1.0) mg/dL AST 22 (15-37) U/L ALT 23 (12-78) U/L Alkaline Phosphatase 98 (46-116) IU/L Creatine Kinase 39 (26-308) U/L Creatine Kinase Index 1.8 (0.0-2.5) % CK-MB (CK-2) 0.70 (0.00-3.60) ng/mL Troponin I 0.000 (0.000-0.056) ng/mL NT-Pro-B Natriuret Pep 442 H (0-125) pg/mL Total Protein 7.3 (6.4-8.2) g/dL Albumin 3.7 (3.4-5.0) g/dL Triglycerides (30-150) mg/dL Cholesterol (100-200) mg/dL LDL Cholesterol, Calc (0-100) mg/dL HDL Cholesterol (40-60) mg/dL TSH, Ultra Sensitive 2.588 (0.358-3.740) mIU/mL 07/26/19 07/26/19 07/27/19 Range/Units 11:55 19:33 07:05 WBC 9.3 (4.0-10.2) K/uL RBC 5.39 H (3.77-5.09) M/uL Hgb 15.6 H (11.7-15.5) g/dL Hct 46.4 H (34.0-46.0) % MCV 86.1 (84.0-98.0) fL MCH 28.9 (28.2-33.3) pg MCHC 33.6 (31.7-36.0) g/dL RDW 13.3 (11.2-14.1) % Plt Count 239 (150-350) K/uL Neut % (Auto) 75.5 (45.0-80.0) % Lymph % (Auto) 13.2 (10.0-50.0) % [place] % (Auto) 9.5 (2.0-14.0) % Eos % (Auto) 1.2 (0.0-5.0) % Baso % (Auto) 0.6 (0.0-2.0) % Neut # (Auto) 7.05 H (1.40-7.00) K/uL Lymph # (Auto) 1.23 (0.50-3.50) K/uL [place] # (Auto) 0.89 (0.00-1.00) K/uL Eos # (Auto) 0.11 (0.00-0.50) K/uL Baso # (Auto) 0.06 (0.00-0.20) K/uL PT (9.5-12.0) SEC INR APTT (21.0-31.3) SEC Sodium (136-145) mmol/L Potassium (3.5-5.1) mmol/L Chloride (98-107) mmol/L Carbon Dioxide (21.0-32.0) mmol/L BUN (7-18) mg/dL Creatinine (0.51-1.17) mg/dL Est Cr Clr Drug Dosing Estimated GFR (MDRD) mL/min Glucose (74-106) mg/dL Hemoglobin A1c (4.3-5.7) % Lactic Acid 1.7 (0.4-2.0) mmol/L Uric Acid (2.6-7.2) mg/dL Calcium (8.5-10.1) mg/dL Magnesium (1.8-2.4) mg/dL Total Bilirubin (0.2-1.0) mg/dL AST (15-37) U/L ALT (12-78) U/L Alkaline Phosphatase (46-116) IU/L Creatine Kinase 34 (26-308) U/L Creatine Kinase Index 2.4 (0.0-2.5) % CK-MB (CK-2) 0.80 (0.00-3.60) ng/mL Troponin I 0.000 (0.000-0.056) ng/mL NT-Pro-B Natriuret Pep (0-125) pg/mL Total Protein (6.4-8.2) g/dL Albumin (3.4-5.0) g/dL Triglycerides (30-150) mg/dL Cholesterol (100-200) mg/dL LDL Cholesterol, Calc (0-100) mg/dL HDL Cholesterol (40-60) mg/dL TSH, Ultra Sensitive (0.358-3.740) mIU/mL 07/27/19 07/27/19 Range/Units 07:05 07:05 WBC (4.0-10.2) K/uL RBC (3.77-5.09) M/uL Hgb (11.7-15.5) g/dL Hct (34.0-46.0) % MCV (84.0-98.0) fL MCH (28.2-33.3) pg MCHC (31.7-36.0) g/dL RDW (11.2-14.1) % Plt Count (150-350) K/uL Neut % (Auto) (45.0-80.0) % Lymph % (Auto) (10.0-50.0) % [place] % (Auto) (2.0-14.0) % Eos % (Auto) (0.0-5.0) % Baso % (Auto) (0.0-2.0) % Neut # (Auto) (1.40-7.00) K/uL Lymph # (Auto) (0.50-3.50) K/uL [place] # (Auto) (0.00-1.00) K/uL Eos # (Auto) (0.00-0.50) K/uL Baso # (Auto) (0.00-0.20) K/uL PT (9.5-12.0) SEC INR APTT (21.0-31.3) SEC Sodium 145 (136-145) mmol/L Potassium 4.1 (3.5-5.1) mmol/L Chloride 105 (98-107) mmol/L Carbon Dioxide 25.2 (21.0-32.0) mmol/L BUN 16 (7-18) mg/dL Creatinine 0.88 (0.51-1.17) mg/dL Est Cr Clr Drug Dosing 44.29 Estimated GFR (MDRD) > 60 mL/min Glucose 116 H (74-106) mg/dL Hemoglobin A1c 5.2 (4.3-5.7) % Lactic Acid (0.4-2.0) mmol/L Uric Acid (2.6-7.2) mg/dL Calcium 10.0 (8.5-10.1) mg/dL Magnesium (1.8-2.4) mg/dL Total Bilirubin 0.5 (0.2-1.0) mg/dL AST 19 (15-37) U/L ALT 22 (12-78) U/L Alkaline Phosphatase 99 (46-116) IU/L Creatine Kinase 36 (26-308) U/L Creatine Kinase Index 1.7 (0.0-2.5) % CK-MB (CK-2) 0.60 (0.00-3.60) ng/mL Troponin I 0.000 (0.000-0.056) ng/mL NT-Pro-B Natriuret Pep 567 H (0-125) pg/mL Total Protein 7.8 (6.4-8.2) g/dL Albumin 3.8 (3.4-5.0) g/dL Triglycerides 80 (30-150) mg/dL Cholesterol 220 H (100-200) mg/dL LDL Cholesterol, Calc 133 H (0-100) mg/dL HDL Cholesterol 71 H (40-60) mg/dL TSH, Ultra Sensitive (0.358-3.740) mIU/mL [facility] Results - Last 24 hrs: None Med Orders - Current: Current Medications Acetaminophen (Tylenol Extra Strength) 500 mg PO Q6HR PRN PRN Reason: Pain Aspirin (Halfprin) 81 mg PO QAM [facility] Last Admin: 07/27/19 07:37 Dose: 81 mg Atorvastatin Calcium (Lipitor) 40 mg PO BEDTIME [facility] Last Admin: 07/26/19 20:14 Dose: 40 mg Citalopram Hydrobromide (Celexa) 10 mg PO DAILY [facility] Last Admin: 07/27/19 07:38 Dose: 10 mg Enoxaparin Sodium (Lovenox) 30 mg SUBCUT Q24H [facility] Last Admin: 07/26/19 14:26 Dose: 30 mg Ferrous Sulfate (Ferrous Sulfate) 325 mg PO DAILY [facility] Last Admin: 07/27/19 07:37 Dose: 325 mg Fluticasone Propionate (Flonase) 1 gm NASBOTH DAILY PRN PRN Reason: Congestion Furosemide (Lasix) 40 mg IVPUSH Q12H [facility] Last Admin: 07/27/19 00:50 Dose: 40 mg Lisinopril (Prinivil) 40 mg PO QPM [facility] Last Admin: 07/26/19 17:50 Dose: 40 mg Meclizine HCl (Antivert) 25 mg PO Q6H PRN PRN Reason: Dizziness Metoprolol Succinate (Toprol Xl) 100 mg PO DAILY [facility] Last Admin: 07/27/19 07:38 Dose: 100 mg Metoprolol Succinate (Toprol Xl) 50 mg PO QPM [facility] Last Admin: 07/26/19 17:50 Dose: 50 mg Potassium Chloride (Klor-Con M20) 20 meq PO BID [facility] Last Admin: 07/27/19 07:37 Dose: 20 meq Sodium Chloride (Saline Flush) 10 ml FLUSH ASDIRECTED PRN PRN Reason: Keep Vein Open Last Admin: 07/27/19 00:54 Dose: 10 ml Sodium Chloride (Saline Flush) 10 ml FLUSH Q12HR PRN PRN Reason: Keep Vein Open Spironolactone (Aldactone) 25 mg PO BID [facility] Last Admin: 07/27/19 07:37 Dose: 25 mg Temazepam (Restoril) 15 mg PO BEDTIME PRN PRN Reason: Insomnia Discontinued Medications Famotidine (Pepcid) 40 mg IVPUSH ONETIME ONE Stop: 07/26/19 11:53 Last Admin: 07/26/19 12:07 Dose: 40 mg Hydralazine HCl (Apresoline) 10 mg IVPUSH ONETIME ONE Stop: 07/26/19 12:48 Last Admin: 07/26/19 12:56 Dose: 10 mg Influenza Virus Vaccine (Pharmacy To Dose - Influenza Vaccine) 1 each IM ONETIME ONE Stop: 07/26/19 14:40 Influenza Virus Vaccine (Fluzone High-Dose 2019-20 Syringe) 180 mcg IM .ONCE ONE Stop: 07/26/19 18:01 Last Admin: 07/26/19 17:57 Dose: 180 mcg Labetalol HCl (Normodyne) 10 mg IVPUSH ONETIME ONE; Protocol Stop: 07/26/19 12:10 Last Admin: 07/26/19 12:14 Dose: 10 mg Pneumococcal 13-Valent Conj Vacc (Prevnar 13) 0.5 ml IM .ONCE ONE Stop: 07/26/19 18:01 Last Admin: 07/26/19 17:55 Dose: 0.5 ml - Exam Quality Assessment: Reports: DVT Prophylaxis (Lovenox). Denies: Supplemental Oxygen, Central Line/PICC, Urine Catheter, Skin Breakdown, Restraints General: Reports: Alert, Oriented, Cooperative, No Acute Distress HEENT: Reports: Pupils Equal, Pupils Reactive, EOMI, Mucous Membr. Moist/[place]: Reports: Supple, Trachea Midline, No JVD, No Thyromegaly, Carotid Bruit ( Bilateral carotid bruitsmild). Denies: Lymphadenopathy Lungs: Reports: Clear to Auscultation, Normal Respiratory Effort. Denies: Rhonchi, Rub, Wheezing Cardiovascular: Reports: Regular Rate, Regular Rhythm, No Murmurs. Denies: Gallops, Rubs GI/Abdominal Exam: Normal Bowel Sounds, Soft, Non-Tender, No Organomegaly, No Distention, No Abnormal Bruit, No Mass, Other (Obese). No: Guarding (Female) Exam: Deferred Rectal (Female) Exam: Deferred Back Exam: Reports: Normal Inspection, Full Range of Motion. Denies: CVA Tenderness (L), CVA Tenderness (R), Muscle Spasm Extremities: Normal Inspection, Normal Range of Motion, Non-Tender, No Pedal Edema, Normal Capillary Refill. No: Cyndee's Sign Skin: Reports: Warm, Dry, Intact Neurological: Reports: No New Focal Deficit Psy/Mental Status: Reports: Alert, Anxious (Mild), Depressed (Mild). Denies: Agitated, Hallucinations, Withdrawal Symptoms EKG INTERPRETATION EKG Date: 07/27/19 Time: 07:10 Rhythm: NSR Rate (Beats/Min): 84 [place]: Normal (Neutral) P-Wave: Enlarged (Moderate diffuse biphasic P waves with mild poor R-wave progression in the anterior leads) QRS: RBBB (Returned complete right bundle branch block with T-wave inversion in lead V1, resolved T-wave inversion in lead 3, and nonspecific ST changes in lead V3.) ST-T: Normal (As above) QT: Normal DC/PQ Interval: 0.13 seconds representing a stable short DC interval with no delta waves noted Comparison: Change From Previous EKG (As above since 07/26/19) EKG Interpretation Comments: 1. No acute ischemic changes 2. Complete right bundle branch block 3. Short DC interval 4. Left atrial enlargement
--- NOTE | 2019-08-01 10:09 | PCM.SN ---
- Free Text/Narrative Note: H. pylori stool antigen therapy was positive during recent hospitalization. She does have a follow-up appointment with her regular provider, MAREK Chinchilla at the [facility], this morning with results submitted to her clinic. Further treatment, evaluation, etc. per her regular provider.
== END 2019-07-27 11:10 | disposition home or self-care (01) ==
LOC: LL.ED 11:47 → LL.MS 12:52 → UNDOADMOB 12:52 → LL.MS 13:10
PROVIDERS: ADMIT Family Medicine; ATTEND Family Medicine
DX: I16.9 Hypertensive crisis, unspecified (principal); I11.0 Hypertensive heart disease with heart failure; I50.31 Acute diastolic (congestive) heart failure; I45.19 Other right bundle-branch block; E78.5 Hyperlipidemia, unspecified; J43.1 Panlobular emphysema; F41.3 Other mixed anxiety disorders; F32.9 Major depressive disorder, single episode, unspecified; M15.0 Primary generalized (osteo)arthritis; R73.9 Hyperglycemia, unspecified; Z23 Encounter for immunization; Z79.82 Long term (current) use of aspirin; Z79.899 Other long term (current) drug therapy
CPT/HCPCS: 36415; 71045; 80053; 80061; 82272; 82550; 82553; 83036; 83605; 83735; 83880; 84443; 84484; 84550; 85025; 85610; 85730; 87338; 90471; 90662; 90670; 93005; 96374; 96375; 99284-25; A9270-GY; G0008; J0360; J1650; J1940; J3490

== ENCOUNTER 2019-09-29 19:33 | Emergency (ER) | payer MEDICARE, BC ==
--- NOTE | 2019-09-29 20:02 | EDM.PDOC ---
ED HPI GENERAL MEDICAL PROBLEM - General Chief Complaint: General Stated Complaint: Headache x 1 week Time Seen by Provider: 09/29/19 19:40 - History of Present Illness INITIAL COMMENTS - FREE TEXT/NARRATIVE: Patient left exam room prior to interview. - Related Data Allergies Allergy/AdvReac Type Severity Reaction Status Date / Time No Known Allergies Allergy Verified 07/26/19 12:20 Home Meds: Home Meds Metoprolol Succinate [Toprol XL 50mg] 50 mg PO QPM 10/17/15 [History] atorvaSTATin [Lipitor] 40 mg PO BEDTIME 10/17/15 [History] Aspirin [Ecotrin EC] 81 mg PO QAM 05/14/16 [History] Ferrous Sulfate 325 mg PO DAILY #30 tablet 05/14/16 [Rx] Meclizine [Antivert] 25 mg PO Q6H PRN #30 tablet 05/14/16 [Rx] Cholecalciferol (Vitamin D3) [Vitamin D3] 2,000 unit PO DAILY #60 capsule [Rx] Magnesium Glycinate [Mag Glycinate] 100 mg PO BID #120 tablet 01/14/18 [Rx] Acetaminophen 500 mg PO Q6HR PRN 09/06/18 [History] Fluticasone Propionate [Flonase Allergy Relief] 1 spray NASBOTH DAILY PRN [History] Metoprolol Succinate [Toprol XL 100mg] 100 mg PO DAILY 09/06/18 [History] LORazepam [Ativan] 1 tab PO BEDTIME 07/26/19 [History] Citalopram [Citalopram HBr] 10 mg PO DAILY #30 tablet 07/27/19 [Rx] Furosemide [Lasix] 20 mg PO DAILY #14 tab 07/27/19 [Rx] Potassium Chloride 10 meq PO DAILY #14 capsule.er 07/27/19 [Rx] Spironolactone [Aldactone] 25 mg PO BID #20 tablet 07/27/19 [Rx] lisinopriL [Lisinopril] 40 mg PO QPM #1 tablet 07/27/19 [Rx] Past Medical History HEENT History: Reports: Impaired Vision, Other (See Below) Other HEENT History: Patient wears Glasses. Cardiovascular History: Reports: Arrhythmia, Cardiomyopathy, Heart Failure, Heart Murmur, High Cholesterol, Hypertension, Pulmonary Hypertension, Other ( See Below) Other Cardiovascular History: Short [place] interval, repolarization changes, and intermittent Complete/incomplete right bundle branch block; dyslipidemia. Grade 2 diastolic dysfunction, mild pulmonary hypertension, and moderate left atrial enlargement by echocardiogram on 01/17/18. Respiratory History: Reports: Bronchitis, Recurrent, COPD, Intubation, Previous , Other (See Below) Other Respiratory History: COPD by chest x-ray with no current medical therapy. Gastrointestinal History: Reports: Hiatal Hernia, Other (See Below) Other Gastrointestinal History: Small hiatal hernia by x-ray. Genitourinary History: Reports: None INSTRUCTIONAL SYSTEMS SPECIALIST History: Reports: , Spontaneous Other INSTRUCTIONAL SYSTEMS SPECIALIST History: Menopause at age 49, one SAB in first trimester with required D&C, otherwise Full term without complications during pregnancies or deliveries Musculoskeletal History: Reports: Arthritis, Fracture, Osteoarthritis, Osteoporosis, Other (See Below) Other Musculoskeletal History: Right ankle bimalleolar fracture on 07/02/10, Anne's cyst of the right knee, right wrist fracture in about 2005 Neurological History: Reports: Vertigo, Other (See Below) Other Neuro History: Chronic vertigo Psychiatric History: Reports: Anxiety, Depression Endocrine/Metabolic History: Reports: Osteopenia, Osteoporosis, Other (See Below ) Other Endocrine/Metabolic History: Hyperglycemia. Hypoalbuminemia. Hematologic History: Reports: Anemia, Iron Deficiency Immunologic History: Reports: None Oncologic (Cancer) History: Reports: None Dermatologic History: Reports: None - Infectious Disease History Infectious Disease History: Reports: Chicken Pox, Measles, Mumps - Past Surgical History Head Surgeries/Procedures: Reports: None HEENT Surgical History: Reports: Adenoidectomy, Oral Surgery, Tonsillectomy, Other (See Below) Other HEENT Surgeries/Procedures: Tonsillectomy and adenoidectomy at age 18. Multiple teeth extractions. [place] teeth extraction 4 in her late 30s Cardiovascular Surgical History: Reports: None Respiratory Surgical History: Reports: None GI Surgical History: Reports: None Female Surgical History: Reports: D&C, Other (See Below) Other Female Surgeries/Procedures: D&C secondary to SAB Endocrine Surgical History: Reports: None Neurological Surgical History: Reports: None Musculoskeletal Surgical History: Reports: Joint Replacement, Knee Replacement, Other (See Below) Other Musculoskeletal Surgeries/Procedures:: Right TKA on 10/09/15 Oncologic Surgical History: Reports: None Dermatological Surgical History: Reports: None - Past Imaging History Past Imaging History: Reports: Cardiac Echo (01/17/18 with ejection fraction of 65 70 percent with otherwise findings as above.), CAT Scan (CT of the brain on with previous evaluation on 01/14/03), DEXA Scan (04/23/13), Mammogram (Last mammogram on 12/20/16), Stress Testing (Cardiolite stress test on 10/21/05 with ejection fraction of 72%), Venous Doppler (Right leg on 10/18/15 and 08/31/07) Social & Family History - Family History HEENT: Reports: None Cardiac: Reports: CAD, Cardiomyopathy, Heart Failure, Hypertension, VT, Other ( See Below) Other Cardiac Family History: Father with VT in his 60s with fatal CHF in his 80s, mother with hypertension Respiratory: Reports: None GI: Reports: Cholelithiasis, Colon Polyps, Other (See Below) Other GI Family History: Mother with cholelithiasis. Sister with colon cancer as below. : Reports: None OBGYN: Reports: None Musculoskeletal: Reports: None Neurological: Reports: CVA, Other (See Below) Other Neurological Family History: Mother with CVA in her 60s Psychiatric: Reports: None Endocrine/Metabolic: Reports: None Hematologic: Reports: None Immunologic: Reports: None Dermatologic: Reports: None Oncologic: Reports: Colon, Other (See Below) Other Oncologic Family History: Sister with colon cancer in her 70s - Caffeine Use Caffeine Use: Reports: Coffee, Soda, Tea Caffeine Use Comment: 3 cups of coffee per day, one glass of tea per month, and 1 soda per week - Living Situation & Occupation Living situation: Reports: (2010, 3 children), Alone 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
[2019-09-29 20:50] VITALS: BP 155/68; PULSE 83
== END 2019-09-29 19:50 | disposition left against medical advice (07) ==
LOC: LL.ED 19:33
DX: Z53.21 Procedure and treatment not carried out due to patient leaving prior to being seen by health care provider (principal)

== ENCOUNTER 2024-09-28 07:38 | Inpatient (IN) | payer MEDICARE, BC ==
[2024-09-28] MEDS: Acetaminophen 500 MG Tab PO ONE (14:23)
[2024-09-28] MEDS: oxyCODONE 5 MG Tab PO ONE (14:24)
[2024-09-28] MEDS ORDERED: Meclizine 25 MG Tab PO PRN (15:51)
[2024-09-28] MEDS ORDERED: Acetaminophen 325 MG Tab PO PRN (15:51)
[2024-09-28] MEDS ORDERED: Take Home: LORazepam 0.5 MG Tab, 5 Tab Pack PO PRN (15:51)
[2024-09-28] MEDS ORDERED: ALENDRONATE 5 MG PO SCH (16:00)
[2024-09-28] MEDS ORDERED: LORazepam 0.5 MG Tab PO PRN (16:08)
[2024-09-28] MEDS: Escitalopram 20 MG Tab PO SCH (20:09)
[2024-09-28] MEDS: Acetaminophen 500 MG Tab PO SCH (20:09)
[2024-09-29] MEDS: Vitamin B Complex Tab PO SCH (07:45)
[2024-09-29] MEDS: Aspirin 325 MG Tab.EC PO SCH (07:46)
[2024-09-29] MEDS: Multivitamin Tab PO SCH (07:46)
[2024-09-29] MEDS: Ferrous Sulfate 325 MG Tab PO SCH (07:46)
[2024-09-29] MEDS: Lisinopril 10 MG Tab PO SCH (07:47)
[2024-10-01] MEDS: Alendronate 70 MG Tab PO SCH (06:59)
[2024-10-01] MEDS: oxyCODONE 5 MG Tab PO PRN (09:04)
[2024-10-03 07:13] VITALS: BP 130/63
[2024-10-03 07:16] VITALS: PULSE 79
== END 2024-10-03 12:12 | disposition home or self-care (01) | DRG 560 ==
LOC: LL.MS 13:30 → UNDOADMIN 13:30 → LL.MS 15:10
PROVIDERS: ADMIT Emergency Medicine; ATTEND Emergency Medicine
DX: Z47.1 Aftercare following joint replacement surgery (principal); I42.9 Cardiomyopathy, unspecified; R53.81 Other malaise; Z96.651 Presence of right artificial knee joint; H54.7 Unspecified visual loss; E78.00 Pure hypercholesterolemia, unspecified; I11.0 Hypertensive heart disease with heart failure; I50.9 Heart failure, unspecified; M19.90 Unspecified osteoarthritis, unspecified site; F15.90 Other stimulant use, unspecified, uncomplicated; F41.1 Generalized anxiety disorder; M81.0 Age-related osteoporosis without current pathological fracture; D50.9 Iron deficiency anemia, unspecified; Z90.89 Acquired absence of other organs; Z98.890 Other specified postprocedural states; Z79.1 Long term (current) use of non-steroidal anti-inflammatories (NSAID); Z87.81 Personal history of (healed) traumatic fracture; Z79.82 Long term (current) use of aspirin; Z79.899 Other long term (current) drug therapy
CPT/HCPCS: 97110-GP; 97161-GP; 99306; 99316; A9270-GY